=== PATIENT | male | born 1945 | race Caucasian/White ===

== ENCOUNTER 2016-12-10 15:09 | Emergency (ER) | payer OTHER ==
[~2016-12-10] VITALS: Ht 190.5 cm; Wt 100.0 kg
[~2016-12-10 15:09] MED LIST: ASPI325T PO; CALC1TAB12 PO; METO100T PO; PRAV40TA2 PO; PRIN10TA PO; THERTAB27 PO; THIA100T PO; TRAM50TA PO
[2016-12-10 15:12] VITALS: BP 133/97; PULSE 144; RESP 14; TEMP 98; O2SAT 98
--- NOTE | 2016-12-10 16:16 | PD ---
HPI Chief Complaint: GI Complaint Time Seen by Provider: 16:15 Travel History International Travel<30 days: No Contact w/Intl Traveler<30days: No Traveled to known affect area: No History of Present Illness HPI 71-year-old male with CAD, hypertension, A. fib, presents to the emergency department for evaluation of decreased appetite, weight loss, inability to sleep worsening over the last 6 weeks. Patient states he has been seen and evaluated by his primary care provider for this. He was prescribed medication to help him sleep and to help him to increase his appetite but these have not helped. He states his symptoms have only gotten worse. He has been referred to GI but cannot get into them until December 30 when he has appointment. Patient states that he has gotten to the point where he eats a slice of tomato at night and then he is dry heaving 4 hours later. He denies any significant pain. No chest tightness. No difficulty breathing. States that he has felt tired but attributes this to not sleeping. Denies any fever or chills. No other symptoms to report at this time. PFSH Past Medical History Atrial Fibrillation: Yes ([place] 08/02/14) Heart Rhythm Problems: Yes Cancer: No Cardiovascular Problems: Yes High Cholesterol: Yes Diabetes: No Diminished Hearing: No Endocrine: No Genitourinary: No Hepatitis: No Hiatal Hernia: No Immune Disorder: No Musculoskeletal: Yes (OSTEOPENIA ) Neurologic: No Psychiatric: No Reproductive: No Respiratory: No Thyroid Disease: No Past Surgical History Abdominal Surgery: No AICD: No Arteriovenous Shunt: No Body Medical Devices: NONE Cardiac Surgery: No Ear Surgery: No Endocrine Surgery: No Eye Surgery: No Genitourinary Surgery: No Gynecologic Surgery: No Insulin Pump: No Joint Replacement: No Oral Surgery: No Pacemaker: No Thoracic Surgery: No Social History Alcohol Use: Yes (10 BEERS/DAY) Tobacco Use: No Substance Use: No Allergies-Medications (Allergen,Severity, Reaction): Coded Allergies: No Known Allergies (Unverified , 09/26/16) Reported Meds & Prescriptions Reported Meds & Active Scripts Active Reported Lexapro (Escitalopram Oxalate) 5 Mg Tab 5 Mg PO DAILY Atorvastatin (Atorvastatin Calcium) 10 Mg Tab 10 Mg PO HS Thiamine (Thiamine HCl) 100 Mg Tab 100 Mg PO DAILY Theragran-M (Multiple Vitamins W/ Minerals) 1 Tab 1 Tab PO DAILY Prinivil (Lisinopril) 10 Mg Tab 10 Mg PO DAILY Metoprolol Tartrate 100 Mg Tab 100 Mg PO BID Calcium 500 +D (Calcium Carbonate-Cholecalciferol) 500-400 Mg-Unit Tab 1 Tab PO DAILY Aspirin 325 Mg Tab 325 Mg PO DAILY Review of Systems Except as stated in HPI: all other systems reviewed are Neg Physical Exam Narrative GENERAL: Well-nourished male patient, ambulatory and in no acute distress. SKIN: Warm and dry. Micropapular rash over the anterior trunk with excoriation. No vesicle or pustule formation. HEAD: Atraumatic. Normocephalic. EYES: Pupils equal and round. Mild scleral icterus. No injection or drainage. ENT: No nasal bleeding or discharge. Mucous membranes pink and moist. NECK: Trachea midline. No JVD. CARDIOVASCULAR: Tachycardic rate and irregular rhythm. No murmur appreciated. RESPIRATORY: No accessory muscle use. Clear to auscultation. Breath sounds equal bilaterally. GASTROINTESTINAL: Abdomen soft, non-tender, nondistended. Hepatic and splenic margins not palpable. MUSCULOSKELETAL: No obvious deformities. No clubbing. No cyanosis. No edema. NEUROLOGICAL: Awake and alert. No obvious cranial nerve deficits. Motor grossly within normal limits. Normal speech. PSYCHIATRIC: Appropriate mood and affect; insight and judgment normal. Data Data Last Documented VS Vital Signs Date Time Temp Pulse Resp B/P Pulse Ox O2 Delivery O2 Flow Rate FiO2 12/10/16 19:04 99 18 147/91 97 Room Air 12/10/16 15:12 98.0 Orders Complete Blood Count With Diff (12/10/16 16:14) Comprehensive Metabolic Panel (12/10/16 16:14) Lipase (12/10/16 16:14) Urinalysis - C+S If Indicated (12/10/16 16:14) Electrocardiogram (12/10/16 16:16) Ckmb (Isoenzyme) Profile (12/10/16 16:16) Magnesium (Mg) (12/10/16 16:16) Prothrombin Time / Inr (Pt) (12/10/16 16:16) Act Partial Throm Time (Ptt) (12/10/16 16:16) Troponin I (12/10/16 16:16) Chest, Single Ap (12/10/16 16:16) CKMB (12/10/16 16:41) CKMB% (12/10/16 16:41) Diltiazem Inj (Cardizem Inj) (12/10/16 17:57) Sodium Chlor 0.9% 1000 Ml Inj (Ns 1000 M (12/10/16 18:30) Sodium Chlor 0.9% 1000 Ml Inj (Ns 1000 M (12/10/16 18:30) Diltiazem Inj (Cardizem Inj) (12/10/16 18:30) Labs Laboratory Tests Test 12/10/16 16:41 White Blood Count 5.2 TH/MM3 Red Blood Count 5.03 MIL/MM3 Hemoglobin 16.2 GM/DL Hematocrit 49.8 % Mean Corpuscular Volume 99.0 FL Mean Corpuscular Hemoglobin 32.2 PG Mean Corpuscular Hemoglobin 32.6 % Concent Red Cell Distribution Width 16.0 % Platelet Count 93 TH/MM3 Mean Platelet Volume 11.3 FL Neutrophils (%) (Auto) 63.4 % Lymphocytes (%) (Auto) 25.2 % Monocytes (%) (Auto) 9.7 % Eosinophils (%) (Auto) 0.3 % Basophils (%) (Auto) 1.4 % Neutrophils # (Auto) 3.3 TH/MM3 Lymphocytes # (Auto) 1.3 TH/MM3 Monocytes # (Auto) 0.5 TH/MM3 Eosinophils # (Auto) 0.0 TH/MM3 Basophils # (Auto) 0.1 TH/MM3 CBC Comment AUTO DIFF Differential Comment AUTO DIFF CONFIRMED Platelet Estimate LOW Platelet Morphology Comment ENLARGED Ovalocytes 1+ Prothrombin Time 19.4 SEC Prothromb Time International 1.7 RATIO Ratio Activated Partial 28.5 SEC Thromboplast Time Magnesium Level 1.7 MG/DL Total Creatine Kinase 1596 U/L Creatine Kinase MB 27.3 NG/ML Creatine Kinase MB % 1.7 % Troponin I 0.09 NG/ML MDM Medical Decision Making Medical Screen Exam Complete: Yes Emergency Medical Condition: Yes Medical Record Reviewed: Yes Differential Diagnosis Dehydration versus blood slight abnormality versus gastroparesis versus neoplasm versus cholecystitis versus pancreatitis Narrative Course 71-year-old male presents to the emergency department for evaluation. Patient appears overall well and without distress. Abdominal exam is benign. He is in A. fib with RVR per the EKG with a rate 130s to 140s. Work up was initiated in triage. Patient will be transferred to a medical bed once one becomes available and care will be assumed by that provider. Condition: Stable Hollie Swanson Dec 10, 2016 16:15
--- NOTE | 2016-12-10 16:29 | RADRPT ---
EXAM DATE/TIME: 12/10/2016 16:13 [facility] COMPARISON: CHEST SINGLE AP, August 02, 2014, 7:54. INDICATIONS : Chest discomfort and short of breath. MEDICAL HISTORY : A-fib. SURGICAL HISTORY : None. ENCOUNTER: Initial ACUITY: 1 week PAIN SCORE: 1/10 LOCATION: Bilateral chest FINDINGS: There is compensated cardiomegaly with areas of persistent scarring in the left base laterally near t he costophrenic angle. CONCLUSION: Stable chest with compensated cardiomegaly and left basilar scarring Luis Larkin MD on December 10, 2016 at 16:27 Board Certified Radiologist. This report was verified electronically.
[2016-12-10 16:59] LABS: AUTOMATED NEUTROPHIL # 3.3 TH/MM3 (1.8-7.7); BASOPHIL # 0.1 TH/MM3 (0-0.2); BASOPHIL % 1.4 % (0.0-2.0); EOSINOPHIL % 0.3 % (0.0-4.0); HEMATOCRIT 49.8 % (39.0-51.0); LYMPH % 25.2 % (9.0-44.0); LYMPHOCYTE # 1.3 TH/MM3 (1.0-4.8); MEAN CORPUSCULAR HEMOGLOBIN 32.2 PG (27.0-34.0); MEAN CORPUSCULAR HGB CONC 32.6 % (32.0-36.0); MONO % 9.7 % (0.0-8.0); NEUT % 63.4 % (16.0-70.0); PLATELET COUNT 93 TH/MM3 (150-450); RED BLOOD COUNT 5.03 MIL/MM3 (4.50-5.90); WHITE BLOOD COUNT 5.2 TH/MM3 (4.0-11.0)
[2016-12-10 17:00] LABS: HEMO FLAGS AUTO DIFF
[2016-12-10 17:09] LABS: APTT (PATIENT) 28.5 SEC (24.3-30.1); INTERNATIONAL NORMALIZED RATIO 1.7 RATIO; PROTHROMBIN TIME - PATIENT 19.4 SEC (9.8-11.6)
[2016-12-10 17:22] LABS: MAGNESIUM 1.7 MG/DL (1.5-2.5)
[2016-12-10 17:34] LABS: OVALOCYTES 1+ (NORMAL); PLATELET ESTIMATE SMEAR LOW (NORMAL); PLATELET MORPHOLOGY ENLARGED (NORMAL); SCAN/DIFF AUTO DIFF CONFIRMED
[2016-12-10 17:48] VITALS: BP 129/103; PULSE 128; RESP 18; O2SAT 97
[2016-12-10 17:48] LABS: CKMB 27.3 NG/ML (0.5-3.6)
[2016-12-10] MEDS ORDERED: DILTIAZEM HCL 25 MG/5 ML VIAL ONE (17:57)
[2016-12-10] MEDS ORDERED: ATOR10TA15 PO (17:58)
[2016-12-10] MEDS ORDERED: LEXA5TAB PO (17:59)
[2016-12-10 18:22] VITALS: BP 125/86; PULSE 100; RESP 18; O2SAT 94
--- NOTE | 2016-12-10 18:27 | PD ---
Physical Exam Narrative I, Dr. Torres, have reviewed the advance practice practitioner's documentation and am in agreement, met with the patient face to face, made the diagnosis, and the medical decision making was done by me. *My assessment and Findings: Afib in RVR vs. dehydration vs. depression vs. malignancy 71yo M with PMH of afib on metoprolol only presents to the ED with c/o 6 weeks of decreased appetite and decreased sleep. States he is nauseous and dry heaves. Pt was initially seen in triage and was in afib RVR at 131bpm. When pt was transferred to medical bed, he was in afib 130s-140s. BP was 129/103 and pt given cardizem 25mg IV. Pt's heart rate decreased to 90s. Labs reviewed , no leukocytosis. CPK 1596. Pt has dark urine and has not been eating or drinking much. Pt given IVF NS for rhabdomyolysis. Troponin 0.09. Pt has no chest pain, likely secondary to afib RVR. Will trend cardiac enzyme. CMP still in process. PT elevated at 19.4. CXR showed stable chest with compensated cardiomegaly and left basilar scarring. States colonoscopy normal 5 -6 years ago. Denies any recent falls. Labs pending, sign out to next team to follow up BMP and admit. Data Data Last Documented VS Vital Signs Date Time Temp Pulse Resp B/P Pulse Ox O2 Delivery O2 Flow Rate FiO2 12/10/16 20:30 130 18 176/78 97 Room Air 12/10/16 15:12 98.0 Orders Complete Blood Count With Diff (12/10/16 16:14) Comprehensive Metabolic Panel (12/10/16 16:14) Lipase (12/10/16 16:14) Urinalysis - C+S If Indicated (12/10/16 16:14) Electrocardiogram (12/10/16 16:16) Ckmb (Isoenzyme) Profile (12/10/16 16:16) Magnesium (Mg) (12/10/16 16:16) Prothrombin Time / Inr (Pt) (12/10/16 16:16) Act Partial Throm Time (Ptt) (12/10/16 16:16) Troponin I (12/10/16 16:16) Chest, Single Ap (12/10/16 16:16) CKMB (12/10/16 16:41) CKMB% (12/10/16 16:41) Diltiazem Inj (Cardizem Inj) (12/10/16 17:57) Sodium Chlor 0.9% 1000 Ml Inj (Ns 1000 M (12/10/16 18:30) Sodium Chlor 0.9% 1000 Ml Inj (Ns 1000 M (12/10/16 18:30) Diltiazem Inj (Cardizem Inj) (12/10/16 18:30) Diltiazem Inj (Cardizem Inj) (12/10/16 21:00) Ct Abd/Pel W/O Iv Contrast (12/10/16 ) Admit Order (Ed Use Only) (12/10/16 20:57) Oral Contrast - Adult (12/10/16 20:59) Labs Laboratory Tests Test 12/10/16 16:41 White Blood Count 5.2 TH/MM3 Red Blood Count 5.03 MIL/MM3 Hemoglobin 16.2 GM/DL Hematocrit 49.8 % Mean Corpuscular Volume 99.0 FL Mean Corpuscular Hemoglobin 32.2 PG Mean Corpuscular Hemoglobin 32.6 % Concent Red Cell Distribution Width 16.0 % Platelet Count 93 TH/MM3 Mean Platelet Volume 11.3 FL Neutrophils (%) (Auto) 63.4 % Lymphocytes (%) (Auto) 25.2 % Monocytes (%) (Auto) 9.7 % Eosinophils (%) (Auto) 0.3 % Basophils (%) (Auto) 1.4 % Neutrophils # (Auto) 3.3 TH/MM3 Lymphocytes # (Auto) 1.3 TH/MM3 Monocytes # (Auto) 0.5 TH/MM3 Eosinophils # (Auto) 0.0 TH/MM3 Basophils # (Auto) 0.1 TH/MM3 CBC Comment AUTO DIFF Differential Comment AUTO DIFF CONFIRMED Platelet Estimate LOW Platelet Morphology Comment ENLARGED Ovalocytes 1+ Prothrombin Time 19.4 SEC Prothromb Time International 1.7 RATIO Ratio Activated Partial 28.5 SEC Thromboplast Time Sodium Level 139 MEQ/L Potassium Level 3.6 MEQ/L Chloride Level 94 MEQ/L Carbon Dioxide Level 31.2 MEQ/L Anion Gap 14 MEQ/L Blood Urea Nitrogen 22 MG/DL Creatinine 1.94 MG/DL Estimat Glomerular Filtration 34 ML/MIN Rate Random Glucose 109 MG/DL Calcium Level 9.3 MG/DL Magnesium Level 1.7 MG/DL Total Bilirubin 2.5 MG/DL Aspartate Amino Transf 207 U/L (AST/SGOT) Alanine Aminotransferase 177 U/L (ALT/SGPT) Alkaline Phosphatase 88 U/L Total Creatine Kinase 1596 U/L Creatine Kinase MB 27.3 NG/ML Creatine Kinase MB % 1.7 % Troponin I 0.09 NG/ML Total Protein 6.5 GM/DL Albumin 3.6 GM/DL Lipase 96 U/L MDM Supervised Visit with SOFYA: Yes Interpretation(s) EKG: Afib with RVR at 131bpm. LAD. +PVCs. Diagnosis Primary Impression: Atrial fibrillation with rapid ventricular response Admitting Information Admitting Physician Requests: Admit Condition: Stable Tammy Torres DO Dec 10, 2016 18:27
[2016-12-10] MEDS ORDERED: SODIUM CHLOR 0.9% 1000 ML INJ 1,000 ML IV ONE ×2 (18:30)
[2016-12-10] MEDS ORDERED: DILTIAZEM HCL 25 MG/5 ML VIAL IV ONE (18:30)
[2016-12-10 19:04] VITALS: BP 147/91; PULSE 99; RESP 18; O2SAT 97
--- NOTE | 2016-12-10 19:16 | EKG ---
Date Performed: 12/10/2016 Time Performed: 16:39:51 PTAGE: 71 years EKG: ATRIAL FIBRILLATION WITH RAPID VENTRICULAR RESPONSE WITH ABERRANT CONDUCTION OR VENTRICULAR PREMATURE COMPLEXES MARKED LEFT AXIS DEVIATION INCOMPLETE RIGHT BUNDLE BRANCH BLOCK NONSPECIFIC ST & T-WAVE ABNORMALITY ABNORMAL ECG COMPARED TO PRIOR ELECTROCARDIOGRAM, Rate has increased and ST-T wave segments are slightly more marked. PREVIOUS TRACING : 05/19/2015 08.22 DOCTOR: Maik Benitez Interpretating Date/Time 12/10/2016 19:15:19
[2016-12-10 19:57] LABS: ANION GAP 14 MEQ/L (5-15); AST (GOT) 207 U/L (15-37); BICARBONATE 31.2 MEQ/L (21.0-32.0); BLOOD UREA NITROGEN 22 MG/DL (7-18); CHLORIDE 94 MEQ/L (98-107); GLOMERULAR FILTRATION RATE 34 ML/MIN (>89); POTASSIUM 3.6 MEQ/L (3.5-5.1); SODIUM (NA) 139 MEQ/L (136-145)
[2016-12-10 20:09] LABS: ALKALINE PHOSPHATASE 88 U/L (45-117); ALT (GPT) 177 U/L (12-78); TOTAL BILIRUBIN ADULT 2.5 MG/DL (0.2-1.0)
[2016-12-10 20:30] VITALS: BP 176/78; PULSE 130; RESP 18; O2SAT 97
[2016-12-10] MEDS ORDERED: NALOXONE HCL 0.4 MG/ML AMP IV PRN (21:00)
[2016-12-10] MEDS ORDERED: SODIUM CHLORIDE 0.9% FLUSH 5 ML FLUSH FLUSH SCH (21:00)
[2016-12-10] MEDS ORDERED: SODIUM CHLORIDE 0.9% FLUSH 5 ML FLUSH FLUSH PRN (21:00)
[2016-12-10] MEDS ORDERED: ONDANSETRON HCL 4 MG/2 ML VIAL IVP PRN (21:00)
[2016-12-10] MEDS ORDERED: DILTIAZEM INJ 125 MG in SODIUM CHLORIDE 0.9% INJ 100 ML IV SCH (21:00)
--- NOTE | 2016-12-10 21:30 | HHI.HP ---
[facility] Service [facility] Primary Care Physician Hillary Muniz MD Admission Diagnosis AFib RVR; Hyperbilirubinemia; Anorexia; N/V; Rhabdo; PONCE Diagnoses: Travel History International Travel<30 Days: No Contact w/Intl Traveler <30 Da: No Traveled to Known Affected Are: No Past Family Social History Allergies: Coded Allergies: No Known Allergies (Unverified , 09/26/16) Physical Exam Vital Signs Vital Signs Date Time Temp Pulse Resp B/P Pulse Ox O2 Delivery O2 Flow Rate FiO2 12/10/16 20:30 130 18 176/78 97 Room Air 12/10/16 19:04 99 18 147/91 97 Room Air 12/10/16 18:22 100 18 125/86 94 12/10/16 17:48 128 18 129/103 97 Room Air 12/10/16 15:12 98.0 144 14 133/97 98 Room Air Physical Exam GENERAL: This is a well-nourished, well-developed patient, in no apparent distress. SKIN: No rashes, ecchymoses or lesions. Cool and dry. HEAD: Atraumatic. Normocephalic. No temporal or scalp tenderness. EYES: Pupils equal round and reactive. Extraocular motions intact. No scleral icterus. No injection or drainage. ENT: Nose without bleeding, purulent drainage or septal hematoma. Throat without erythema, tonsillar hypertrophy or exudate. Uvula midline. Airway patent. NECK: Trachea midline. No JVD or lymphadenopathy. Supple, nontender, no meningeal signs. CARDIOVASCULAR: Regular rate and rhythm without murmurs, gallops, or rubs. RESPIRATORY: Clear to auscultation. Breath sounds equal bilaterally. No wheezes , rales, or rhonchi. GASTROINTESTINAL: Abdomen soft, non-tender, nondistended. No hepato-splenomegaly , or palpable masses. No guarding. MUSCULOSKELETAL: Extremities without clubbing, cyanosis, or edema. No joint tenderness, effusion, or edema noted. No calf tenderness. Negative Homans sign bilaterally. NEUROLOGICAL: Awake and alert. Cranial nerves II through XII intact. Motor and sensory grossly within normal limits. Five out of 5 muscle strength in all muscle groups. Normal speech. Laboratory Laboratory Tests Test 12/10/16 16:41 White Blood Count 5.2 Red Blood Count 5.03 Hemoglobin 16.2 Hematocrit 49.8 Mean Corpuscular Volume 99.0 Mean Corpuscular Hemoglobin 32.2 Mean Corpuscular Hemoglobin 32.6 Concent Red Cell Distribution Width 16.0 Platelet Count 93 Mean Platelet Volume 11.3 Neutrophils (%) (Auto) 63.4 Lymphocytes (%) (Auto) 25.2 Monocytes (%) (Auto) 9.7 Eosinophils (%) (Auto) 0.3 Basophils (%) (Auto) 1.4 Neutrophils # (Auto) 3.3 Lymphocytes # (Auto) 1.3 Monocytes # (Auto) 0.5 Eosinophils # (Auto) 0.0 Basophils # (Auto) 0.1 CBC Comment AUTO DIFF Differential Comment AUTO DIFF CONFIRMED Platelet Estimate LOW Platelet Morphology Comment ENLARGED Ovalocytes 1+ Prothrombin Time 19.4 Prothromb Time International 1.7 Ratio Activated Partial 28.5 Thromboplast Time Sodium Level 139 Potassium Level 3.6 Chloride Level 94 Carbon Dioxide Level 31.2 Anion Gap 14 Blood Urea Nitrogen 22 Creatinine 1.94 Estimat Glomerular Filtration 34 Rate Random Glucose 109 Calcium Level 9.3 Magnesium Level 1.7 Total Bilirubin 2.5 Aspartate Amino Transf 207 (AST/SGOT) Alanine Aminotransferase 177 (ALT/SGPT) Alkaline Phosphatase 88 Total Creatine Kinase 1596 Creatine Kinase MB 27.3 Creatine Kinase MB % 1.7 Troponin I 0.09 Total Protein 6.5 Albumin 3.6 Lipase 96 Result Diagram: 12/10/16 1641 12/10/16 1641 Physician Certification Order for Inpatient Services The services are ordered in accordance with Medicare regulations or non- Medicare payer requirements, as applicable. In the case of services not specified as inpatient-only, they are appropriately provided as inpatient services in accordance with the 2-midnight benchmark. days is the estimated time the patient will need to remain in the hospital, assuming treatment plan goals are met and no additional complications. Doris Mckeon MD Dec 10, 2016 21:29
[2016-12-10 21:36] LABS: BLOOD, URINE MOD (NEG); COMMENT (UR) CULTURE INDICATED; CULTURE IF INDICATED CULTURE INDICATED; GLUCOSE,URINE NEG (NEG); HYALINE CAST, URINE 53 /lpf (RARE); KETONE, URINE TRACE mg/dL (NEG); MUCUS URINE FEW /lpf (OCC); NITRITE,URINE NEG (NEG); URINE COLOR DARK-YELLOW (YELLW/STRAW)
[2016-12-10] MEDS ORDERED: DIATRIZOATE MEGLUM/DIATRIZOATE SOD 9 ML CUP ONE (21:46)
[2016-12-10 21:48] VITALS: BP 121/96; PULSE 124; RESP 18; O2SAT 97
--- NOTE | 2016-12-10 22:55 | HHI.PR ---
Addendum to Inpatient Note Addendum Reason: Additional Documentation Additional Information Please note that this is an addendum. Patient is not admitted as an inpatient. Patient actually signed out AMA and refused hospital admission. I was called by ER physician for an admission on this patient. Came to see patient at the bedside. Patient immediately told me that he has been tolerating other providers that he wanted to leave the hospital because he does not feel that he would get a bad tonight. He feels that he is dehydrated and he just wanted IV fluids before leaving. I have talked to patient in detail about his medical situation. He told me that he has been having these bloating sensation since about Christmastime or even longer. However he started having dry heaving with significant discomfort starting around 10 days ago or so. About 10 days ago, he stated he had outpatient CT abdomen with oral contrast done at [facility]. He states he also has a GI appointment. He states initially his PCP was treating him with omeprazole. He states since this was not improving and he was having constant nausea and dry heaving, he had called PCPs office today who told him to come to emergency room instead. Patient denies any fever. Denies vomiting. Denies any diarrhea or constipation. Denies any black color stool or red color stool. Patient notes that he did receive oral contrast but he does not think that he got IV contrast 10 days ago. Patient is not aware of any history of congestive heart failure or renal failure. He states that his hand box coverer at [facility] never mentioned him about congestive heart failure. He does not have an AICD. Patient is explained that he is currently in acute renal failure based on his labs compared to his prior labs from 2013. He is also explained that echocardiogram done in July 2014 here did show that his EF was 30-35%. He is explained that for this reason, he will be hydrated with caution. He already received 2 L of normal saline bolus in emergency room. He also reports of history of A. fib. He was noted to be in A. fib with a RVR in emergency room. He was given Cardizem IV at that time and was started on Cardizem IV drip. Patient is explained that his A. fib could be exacerbated because of several reasons. Dehydration, any GI bleed, any fever, any cardiac event such as ACS, could all lead to A. fib with RVR. Therefore he is explained that we need to treat the underlying cause of his A. fib with RVR bombarding him with high dose of Cardizem drip. We will be cautious with the drip. The patient is explained in detail that at present, we do not know the exact etiology of his symptoms. He is noted to have rhabdomyolysis with CPK in the Thousands with mild elevation of troponin. I do believe that this is from rhabdo. However I cannot rule out ACS. Similarly, he is also noted to have abnormal UA. Although he does not have any urinary symptoms, this could also be a UTI. Given above all this, patient is explained that if he does not want to stay in the hospital because of the bed situation, he is to leave AGAINST MEDICAL ADVICE. Patient still wants to leave AGAINST MEDICAL ADVICE and he will follow up with his PCP in the morning for further care. He is also advised to have one of his friends stay with him overnight in case he needs any help. He is also told to have his cell phone nearby in case he needs to call 911. Patient is awake, alert, oriented. He is of all the risks against leaving medical advice including . Admitting office, and community relations director informed to remove admission to the hospital since patient was not admitted and does not want him to be charged financially for this. Doris Mckeon MD Dec 10, 2016 22:55
[2016-12-11] MEDS ORDERED: METOPROLOL TARTRATE 100 MG TAB PO SCH (09:00)
[2016-12-12] MEDS ORDERED: TEMA15CA PO (15:43)
[2016-12-12] MEDS ORDERED: OMEP20TA PO (15:43)
[2016-12-12] MEDS ORDERED: VITAMIN B1 (15:43)
== END 2016-12-11 07:39 | disposition left against medical advice (07) ==
LOC: NEPC 15:09 → UNDOADMIN 20:59 → NEDA 20:59 → NEPC 12-11 07:39
DX: I48.91 Unspecified atrial fibrillation (principal); R82.90 Unspecified abnormal findings in urine; R94.31 Abnormal electrocardiogram [ECG] [EKG]; E78.00 Pure hypercholesterolemia, unspecified; N17.9 Acute kidney failure, unspecified
CPT/HCPCS: 71010; 80053; 81001; 82550; 82552; 83690; 83735; 84484; 85025; 85610; 85730; 87086; 93005; 96361; 96374; 96375; 99285; J7030; Q9963

== ENCOUNTER 2016-12-12 15:14 | Inpatient (IN) | payer OTHER, MEDICARE ==
[~2016-12-12] VITALS: Ht 190.5 cm; Wt 111.0 kg
[2016-12-12] VITALS (9 sets, daily range): BP systolic 104–130; BP diastolic 67–99; PULSE 110–148; RESP 16–20; TEMP 97.4–97.5; O2SAT 94–98
[~2016-12-12 15:14] MED LIST changes: +ATOR10TA15 PO; +LEXA5TAB PO; -PRAV40TA2 PO; -TRAM50TA PO
[2016-12-12] MEDS ORDERED: TEMA15CA PO (15:43)
[2016-12-12] MEDS ORDERED: OMEP20TA PO (15:43)
[2016-12-12] MEDS ORDERED: VITAMIN B1 (15:43)
[2016-12-12] MEDS ORDERED: METOPROLOL SUCCINATE 50 MG EXTENDED RELEASE TAB PO ONE (16:00)
--- NOTE | 2016-12-12 16:05 | PD ---
HPI Chief Complaint: Cardiac Complaint Time Seen by Provider: 15:31 Travel History International Travel<30 days: No Contact w/Intl Traveler<30days: No Traveled to known affect area: No History of Present Illness HPI This 71-year-old male is complaining of nausea and poor appetite. He says his stomach feels bloated. He's been feeling lightheaded at times. He has dry heaves at times. His been up drinker in the past 6-7 beers a day. He stopped about a month ago when he started not feeling well. He has also not been sleeping well he has tried Restoril but did not help him. He has been on omeprazole without any response. He has a history of atrial fibrillation. He has been on diltiazem and metoprolol in the past. 5 months ago he was taken off the diltiazem and his chest and metoprolol. He actually says however that he has not taken his metoprolol today. He has been a little bit short of breath. He went to [facility] a few days ago for these complaints and was evaluated for admission. He was found to be in rapid atrial fibrillation. At that time his bilirubin was 2.5 PFSH Past Medical History Atrial Fibrillation: Yes (NEW [place] 08/02/14) Heart Rhythm Problems: Yes Cancer: No Cardiovascular Problems: Yes High Cholesterol: Yes Diabetes: No Diminished Hearing: No Endocrine: No Gastrointestinal Disorders: No Genitourinary: No Hepatitis: No Hiatal Hernia: No Hypertension: Yes Immune Disorder: No Implanted Vascular Access Dvce: No Medical other: No Musculoskeletal: Yes (OSTEOPENIA ) Neurologic: No Psychiatric: No Reproductive: No Respiratory: No Thyroid Disease: No Tetanus Vaccination: Unknown Past Surgical History Abdominal Surgery: Yes (double inguinal hernia 2014) AICD: No Arteriovenous Shunt: No Body Medical Devices: NONE Cardiac Surgery: No Ear Surgery: No Endocrine Surgery: No Eye Surgery: No Genitourinary Surgery: No Gynecologic Surgery: No Insulin Pump: No Joint Replacement: No Neurologic Surgery: No Oral Surgery: No Pacemaker: No Thoracic Surgery: No Social History Alcohol Use: No (last drank before 2015) Tobacco Use: No Substance Use: No Allergies-Medications (Allergen,Severity, Reaction): Coded Allergies: No Known Allergies (Unverified , 12/12/16) Reported Meds & Prescriptions Reported Meds & Active Scripts Active Reported Temazepam 15 Mg Cap 15 Mg PO HS PRN Omeprazole 20 Mg Tab 20 Mg PO DAILY [Vitamin B1] Lexapro (Escitalopram Oxalate) 5 Mg Tab 5 Mg PO DAILY Atorvastatin (Atorvastatin Calcium) 10 Mg Tab 10 Mg PO HS Theragran-M (Multiple Vitamins W/ Minerals) 1 Tab 1 Tab PO DAILY Prinivil (Lisinopril) 10 Mg Tab 10 Mg PO DAILY Metoprolol Tartrate 100 Mg Tab 100 Mg PO BID Calcium 500 +D (Calcium Carbonate-Cholecalciferol) 500-400 Mg-Unit Tab 1 Tab PO DAILY Aspirin 325 Mg Tab 325 Mg PO DAILY Review of Systems General / Constitutional: No: Fever, Chills Eyes: No: Diploplia HENT: No: Headaches Cardiovascular: Positive: Palpitations, Tachycardia Respiratory: Positive: Shortness of Breath Gastrointestinal: Positive: Nausea, Vomiting, No: Hematemesis Genitourinary: No: Urgency, Frequency Musculoskeletal: No: Myalgias Skin: No Rash Physical Exam Narrative GENERAL: Well-developed male SKIN: Warm and dry. HEAD: Atraumatic. Normocephalic. EYES: Pupils equal and round. scleral icterus. No injection or drainage. ENT: No nasal bleeding or discharge. Mucous membranes pink and moist. NECK: Trachea midline. No JVD. CARDIOVASCULAR: Rapid irregular rate and rhythm. No murmur appreciated. RESPIRATORY: No accessory muscle use. Clear to auscultation. Breath sounds equal bilaterally. GASTROINTESTINAL: Abdomen soft, non-tender, nondistended. Hepatic and splenic margins not palpable. MUSCULOSKELETAL: No obvious deformities. No clubbing. No cyanosis. No edema. NEUROLOGICAL: Awake and alert. No obvious cranial nerve deficits. Motor grossly within normal limits. Normal speech. PSYCHIATRIC: Appropriate mood and affect; insight and judgment normal. Data Data Last Documented VS Vital Signs Date Time Temp Pulse Resp B/P Pulse Ox O2 Delivery O2 Flow Rate FiO2 12/12/16 15:38 92 Nasal Cannula 2 12/12/16 15:26 18 12/12/16 15:17 97.5 130 130/96 Orders Electrocardiogram (12/12/16 15:48) Complete Blood Count With Diff (12/12/16 15:48) Comprehensive Metabolic Panel (12/12/16 15:48) Troponin I (12/12/16 15:48) B-Type Natriuretic Peptide (12/12/16 15:48) Lipase (12/12/16 15:48) Urinalysis - C+S If Indicated (12/12/16 15:48) Chest, Single Ap (12/12/16 15:48) Ct Abd/Pel W Iv Contrast(Rout) (12/12/16 15:48) Metoprolol Succinate Er (Toprol Xl) (12/12/16 16:00) MDM Medical Decision Making Medical Screen Exam Complete: Yes Emergency Medical Condition: Yes Medical Record Reviewed: Yes Differential Diagnosis Differential includes rapid atrial fibrillation, hepatitis, liver disease Narrative Course Patient is in rapid atrial fibrillation now and is supposed to be on metoprolol 100 twice a day but has not taken them. Rule out initiate some by mouth metoprolol. I have also ordered repeat lab work and a CT scan of the abdomen and pelvis to assess for the cause of his hyperbilirubinemia. He has been a drinker in the past Devaughn Carrillo MD Dec 12, 2016 16:05
[2016-12-12 16:15] LABS: CHLORIDE 95 MEQ/L (98-107); POTASSIUM 3.3 MEQ/L (3.5-5.1); SODIUM (NA) 140 MEQ/L (136-145)
[2016-12-12 16:19] LABS: ANION GAP 13 MEQ/L (5-15); BICARBONATE 32.2 MEQ/L (21.0-32.0); BLOOD UREA NITROGEN 28 MG/DL (7-18)
[2016-12-12 16:22] LABS: ALT (GPT) 426 U/L (12-78); AST (GOT) 559 U/L (15-37); GLOMERULAR FILTRATION RATE 33 ML/MIN (>89)
[2016-12-12 16:25] LABS: ALKALINE PHOSPHATASE 84 U/L (45-117)
[2016-12-12 16:28] LABS: AUTOMATED NEUTROPHIL # 4.3 TH/MM3 (1.8-7.7); BASOPHIL % 0.6 % (0.0-2.0); EOSINOPHIL % 0.3 % (0.0-4.0); HEMATOCRIT 49.9 % (39.0-51.0); LYMPH % 20.1 % (9.0-44.0); LYMPHOCYTE # 1.3 TH/MM3 (1.0-4.8); MEAN CELL VOLUME 98.1 FL (80.0-100.0); MEAN CORPUSCULAR HEMOGLOBIN 31.2 PG (27.0-34.0); MEAN CORPUSCULAR HGB CONC 31.8 % (32.0-36.0); MONO % 8.9 % (0.0-8.0); NEUT % 70.1 % (16.0-70.0); PLATELET COUNT 76 TH/MM3 (150-450); RED BLOOD COUNT 5.09 MIL/MM3 (4.50-5.90); WHITE BLOOD COUNT 6.2 TH/MM3 (4.0-11.0)
[2016-12-12] MEDS ORDERED: DILTIAZEM HCL 25 MG/5 ML VIAL IV ONE (16:30)
[2016-12-12] MEDS ORDERED: SODIUM CHLORID 0.9% 500 ML INJ 500 ML IV ONE (16:30)
[2016-12-12] MEDS ORDERED: POTASSIUM CHLORIDE 20 MEQ CONTROLLED RELEASE TAB PO ONE (16:30)
[2016-12-12 16:31] LABS: HEMO FLAGS AUTO DIFF
--- NOTE | 2016-12-12 16:34 | PD ---
Physical Exam Narrative Received sign out from previous team to follow up labs, CTa/p This is a 71yo M with PMH of former alcohol abuse, afib noncompliant with metoprolol 100mg PO BID here with generalized weakness and abdominal bloating. Pt was seen at [facility] on 12/10/16 and found to be in rapid afib, rhabdomyolysis and PONCE and signed out AMA. Pt states that he feels the same so he came back. Pt is again is rapid afib in the 130s-140s. Pt given metoprolol 50mg PO by previous team. Pt did not respond to the medication so cardizem 25mg IV given. Labs reviewed, no leukocytosis. K: 3.3, replaced orally with 40mEq KCl. Creatinine is again elevated at 2.0. Bilirubin and liver enzymes are more elevated than 12/10/16. CTa/p ordered for elevated liver enzymes but pt has no abdominal pain. CT showed cardiomegaly and small pleural effusions. Ascites in abdomen. No acute focal findings. Troponin is elevated at 0.15. BNP is 1643. CPK is increased to 3209 now. Discussed with cardiology Manjula and she recommended to stay with metoprolol since pt has low EF. States can also give low dose of lasix such as lasix 40mg IV. Pt given lopressor 2.5mg IV and heart rate did decreased to 90s but fluctuates. Discussed with electrical integrator Dr. Ly and recommend transfer to [facility] ICU. Data Data Last Documented VS Vital Signs Date Time Temp Pulse Resp B/P Pulse Ox O2 Delivery O2 Flow Rate FiO2 12/12/16 17:44 132 18 117/99 94 Room Air 12/12/16 16:26 2 12/12/16 15:17 97.5 Orders Electrocardiogram (12/12/16 15:48) Complete Blood Count With Diff (12/12/16 15:48) Comprehensive Metabolic Panel (12/12/16 15:48) Troponin I (12/12/16 15:48) B-Type Natriuretic Peptide (12/12/16 15:48) Lipase (12/12/16 15:48) Urinalysis - C+S If Indicated (12/12/16 15:48) Chest, Single Ap (12/12/16 15:48) Metoprolol Succinate Er (Toprol Xl) (12/12/16 16:00) Diltiazem Inj (Cardizem Inj) (12/12/16 16:30) Creatine Kinase (Cpk) (12/12/16 16:30) Sodium Chlorid 0.9% 500 Ml Inj (Ns 500 M (12/12/16 16:30) Potassium Chloride (Kcl) (12/12/16 16:30) Furosemide Inj (Lasix Inj) (12/12/16 17:00) Consult Cardiology (12/12/16 ) (Hub Use Only)Inp Phy Cons/Ref (12/12/16 ) CKMB (12/12/16 16:00) CKMB% (12/12/16 16:00) Metoprolol Tartrate Inj (Lopressor Inj) (12/12/16 17:44) Ct Abd/Pel W/O Iv Contrast (12/12/16 ) Admit Order (Ed Use Only) (12/12/16 18:04) Magnesium (Mg) (12/12/16 16:00) Labs Laboratory Tests Test 12/12/16 12/12/16 16:00 17:40 White Blood Count 6.2 TH/MM3 Red Blood Count 5.09 MIL/MM3 Hemoglobin 15.9 GM/DL Hematocrit 49.9 % Mean Corpuscular Volume 98.1 FL Mean Corpuscular Hemoglobin 31.2 PG Mean Corpuscular Hemoglobin 31.8 % Concent Red Cell Distribution Width 16.0 % Platelet Count 76 TH/MM3 Mean Platelet Volume 11.1 FL Neutrophils (%) (Auto) 70.1 % Lymphocytes (%) (Auto) 20.1 % Monocytes (%) (Auto) 8.9 % Eosinophils (%) (Auto) 0.3 % Basophils (%) (Auto) 0.6 % Neutrophils # (Auto) 4.3 TH/MM3 Lymphocytes # (Auto) 1.3 TH/MM3 Monocytes # (Auto) 0.6 TH/MM3 Eosinophils # (Auto) 0.0 TH/MM3 Basophils # (Auto) 0.0 TH/MM3 CBC Comment AUTO DIFF Differential Comment AUTO DIFF CONFIRMED Platelet Estimate LOW Platelet Morphology Comment ENLARGED Red Cell Morphology Comment NORMAL Sodium Level 140 MEQ/L Potassium Level 3.3 MEQ/L Chloride Level 95 MEQ/L Carbon Dioxide Level 32.2 MEQ/L Anion Gap 13 MEQ/L Blood Urea Nitrogen 28 MG/DL Creatinine 2.00 MG/DL Estimat Glomerular Filtration 33 ML/MIN Rate Random Glucose 105 MG/DL Calcium Level 8.9 MG/DL Magnesium Level 1.9 MG/DL Total Bilirubin 3.0 MG/DL Aspartate Amino Transf 559 U/L (AST/SGOT) Alanine Aminotransferase 426 U/L (ALT/SGPT) Alkaline Phosphatase 84 U/L Total Creatine Kinase 3209 U/L Creatine Kinase MB 43.8 NG/ML Creatine Kinase MB % 1.4 % Troponin I 0.15 NG/ML B-Type Natriuretic Peptide 1643 PG/ML Total Protein 6.4 GM/DL Albumin 3.3 GM/DL Lipase 127 U/L Urine Collection Type VOIDED Urine Color YELLOW Urine Turbidity CLEAR Urine pH 5.5 Urine Specific [place] 1.015 Urine Protein 100 mg/dL Urine Glucose (UA) NEG mg/dL Urine Ketones TRACE mg/dL Urine Occult Blood MOD Urine Nitrite NEG Urine Bilirubin MOD Urine Leukocyte Esterase NEG Urine WBC 0-2 /hpf Microscopic Urinalysis Comment CULT NOT INDICATED Urine Eosinophils NONE SEEN /HPF Urine Random Creatinine 135.7 MG/DL Urine Random Sodium 73 MEQ/L Urine Collection Time 1740 MDM Supervised Visit with SOFYA: No Critical Care Narrative Aggregate critical care time was 50 minutes. Time to perform other separately billable procedures was not included in the critical care time. My time did not include minutes spent treating any other patients simultaneously or on activities that did not directly contribute to the patient's treatment. The services I provided to this patient were to treat and/or prevent clinically significant deterioration that could result in: cardiovascular collapse or . I provided critical care services requiring my management, as noted below: Chart data review, documentation time, medication orders and management, vital sign assessments/reviewing monitor data, ordering and reviewing lab tests, ordering and interpreting/reviewing x-rays and diagnostic studies, care of the patient and discussion of the patient with the admitting physicians. Diagnosis Primary Impression: CHF exacerbation Qualified Code: I50.23 - Acute on chronic systolic congestive heart failure Additional Impression: PONCE (acute kidney injury) Admitting Information Admitting Physician Requests: Admit Tammy Torres DO Dec 12, 2016 16:34
--- NOTE | 2016-12-12 16:59 | RADHPO ---
EXAM DATE/TIME: 12/12/2016 16:28 [facility] COMPARISON: CHEST SINGLE AP, December 10, 2016, 16:13. INDICATIONS : Patient states shortness of breath. MEDICAL HISTORY : A-Fib SURGICAL HISTORY : None. ENCOUNTER: Initial ACUITY: 1 day PAIN SCORE: 0/10 LOCATION: Bilateral chest FINDINGS: AP upright view of the chest again demonstrates left basilar airspace consolidation. There is minimal right basilar consolidation. The remainder of the lungs are clear. Heart size appears moderately enl arged. Pulmonary vasculature is normal in caliber. CONCLUSION: Stable exam. Emy Franklin MD on December 12, 2016 at 16:56 Board Certified Radiologist. This report was verified electronically.
[2016-12-12] MEDS ORDERED: FUROSEMIDE 40 MG/4 ML VIAL IV PUSH ONE (17:00)
[2016-12-12 17:41] LABS: PLATELET ESTIMATE SMEAR LOW (NORMAL); PLATELET MORPHOLOGY ENLARGED (NORMAL); SCAN/DIFF AUTO DIFF CONFIRMED
[2016-12-12] MEDS ORDERED: METOPROLOL TARTRATE 5 MG/5 ML VIAL IV PUSH STA (17:44)
[2016-12-12 17:48] LABS: GLUCOSE,URINE NEG (NEG); KETONE, URINE TRACE mg/dL (NEG); NITRITE,URINE NEG (NEG); PH, URINE 5.5 (5.0-8.5)
[2016-12-12 17:59] LABS: BLOOD, URINE MOD (NEG)
[2016-12-12 18:01] LABS: CKMB 43.8 NG/ML (0.5-3.6)
[2016-12-12 18:14] LABS: COMMENT (UR) CULT NOT INDICATED; CULTURE IF INDICATED CULT NOT INDICATED; METHOD OF COLLECTION VOIDED; URINE COLOR YELLOW (YELLW/STRAW); WBC, URINE 0-2 /hpf (0-5)
[2016-12-12] MEDS ORDERED: RESP: ALBUTEROL 2.5 MG/IPRATROPIUM 0.5 MG NEB (PRN) INH (18:15)
[2016-12-12] MEDS ORDERED: CHLORHEXIDINE GLUCONATE 2 % 1 PACK (2 CLOTHS) TOP PRN (18:15)
[2016-12-12] MEDS ORDERED: MORPHINE SULFATE 4 MG/ML INJ IV PRN (18:15)
[2016-12-12] MEDS ORDERED: SODIUM CHLORIDE 0.9% FLUSH 5 ML FLUSH IV FLUSH PRN (18:15)
[2016-12-12] MEDS ORDERED: ACETAMINOPHEN 325 MG TAB PO PRN (18:15)
[2016-12-12] MEDS ORDERED: MISCELLANEOUS NURSING INFORMATION XX SCH (18:15)
[2016-12-12] MEDS ORDERED: SENNOSIDES 8.6 MG TAB PO PRN (18:15)
[2016-12-12 18:59] LABS: MAGNESIUM 1.9 MG/DL (1.5-2.5)
--- NOTE | 2016-12-12 19:02 | RADHPO ---
EXAM DATE/TIME: 12/12/2016 18:22 [facility] COMPARISON: No previous studies available for comparison. INDICATIONS : Elevated liver enzymes. Jaundice. ORAL CONTRAST: No oral contrast ingested. RADIATION DOSE: 19.36 CTDIvol (mGy) MEDICAL HISTORY : Hernia, inguinal. Hypertension. SURGICAL HISTORY : None. ENCOUNTER: Initial ACUITY: 2 months PAIN SCALE: 5/10 LOCATION: Bilateral abdomen and pelvis. TECHNIQUE: Volumetric scanning of the abdomen and pelvis was performed. Using automated exposure control and ad justment of the mA and/or kV according to patient size, radiation dose was kept as low as reasonably achievable to obtain optimal diagnostic quality images. FINDINGS: LOWER LUNGS: There are bilateral pleural effusions, larger on the left than the right. Mild cardiomegaly. LIVER: No focal mass or biliary ductal dilatation. SPLEEN: Normal size without lesion. PANCREAS: Within normal limits. KIDNEYS: Nonspecific perinephric edema and fluid. No evidence of hydronephrosis mass or stone. ADRENAL GLANDS: Within normal limits. VASCULAR: There is no aortic aneurysm. BOWEL/MESENTERY: Bowel structures are normal in caliber throughout. No definite wall thickening. Small volume ascites in 4 quadrants. ABDOMINAL WALL: Within normal limits. RETROPERITONEUM: There is no lymphadenopathy. BLADDER: No wall thickening or mass. REPRODUCTIVE: Within normal limits. INGUINAL: There is no lymphadenopathy or hernia. MUSCULOSKELETAL: Within normal limits for patient age. CONCLUSION: Cardiomegaly and small pleural effusions. Ascites in the abdomen. No acute focal findings. Keven Hamilton MD on December 12, 2016 at 18:56 Board Certified Radiologist. This report was verified electronically.
--- NOTE | 2016-12-12 21:08 | RADHPO ---
EXAM DATE/TIME: 12/12/2016 20:18 [facility] COMPARISON: CT ABDOMEN & PELVIS W/O CONTRAST, December 12, 2016, 18:22. EXTERNAL COMPARISON : [facility], CT ABDOMEN & PELVIS W/O CONTRAST, November 29, 2016 INDICATIONS : Increased lab values. MEDICAL HISTORY : Hypercholesterolemia. Hypertension. Afib. Osteopenia. SURGICAL HISTORY : Inguinal hernia repair. Right hand tendon repair. ENCOUNTER: Initial ACUITY: 2 months PAIN SCORE: 0/10 LOCATION: Bilateral upper quadrant MEASUREMENTS: LIVER: 16.6 cm length COMMON DUCT: 5 mm RIGHT KIDNEY: 10.3 x 4.7 x 5.2 cm SPLEEN: 8.1 cm length FINDINGS: Multi-region ascites LIVER: Hepatic veins are dilated. No focal liver mass or biliary ductal dilatation. COMMON DUCT: No intraluminal mass or stone visualized. GALLBLADDER: Nonspecific mild wall thickening. PANCREAS: The visualized portions are within normal limits. RIGHT KIDNEY: Small exophytic cyst laterally measuring about 2 cm. No hydronephrosis or stone SPLEEN: No focal lesion. CONCLUSION: Ascites. Hepatic venocongestion. Keven Hamilton MD on December 12, 2016 at 21:04 Board Certified Radiologist. This report was verified electronically.
[2016-12-12] MEDS: DOCUSATE SODIUM 100 MG CAP PO SCH (22:13)
[2016-12-12] MEDS: METOPROLOL TARTRATE 5 MG/5 ML VIAL IV PUSH SCH ×4 (22:13→23:25)
[2016-12-12] MEDS: SODIUM CHLORIDE 0.9% FLUSH 5 ML FLUSH IV FLUSH SCH (22:13)
[2016-12-12] MEDS: CHLORHEXIDINE GLUCONATE 2 % 1 PACK (2 CLOTHS) TOP SCH (22:13)
--- NOTE | 2016-12-12 22:43 | HHI.HP ---
HPI Service Critical Care Medicine Primary Care Physician Hillary Muniz MD Admission Diagnosis cardiorenal failure Diagnosis: Travel History International Travel<30 Days: No Contact w/Intl Traveler <30 Da: No Traveled to Known Affected Are: No History of Present Illness 71 year old male with former alcohol abuse, a. fib noncompliant with metoprolol 100mg PO BID presents with generalized weakness and abdominal bloating. He was seen here 12/10/16 and found to be in rapid afib, rhabdomyolysis and PONCE and left AMA. Pt states that he feels the same so he came back. Review of Systems Constitutional: DENIES: Diaphoretic episodes, Fatigue, Fever, Weight gain, Weight loss, Chills, Dizziness, Change in appetite, Night Sweats Endocrine: DENIES: Heat/cold intolerance, Polydipsia, Polyuria, Polyphagia Eyes: DENIES: Blurred vision, Diplopia, Eye inflammation, Eye pain, Vision loss , Photosensitivity, Double Vision Ears, nose, mouth, throat: DENIES: Tinnitus, Hearing loss, Vertigo, Nasal discharge, Oral lesions, Throat pain, Hoarseness, Ear Pain, Running Nose, Epistaxis, Sinus Pain, Toothache, Odynophagia Respiratory: DENIES: Apneas, Cough, Snoring, Wheezing, Hemoptysis, Sputum production, Shortness of breath Cardiovascular: COMPLAINS OF: Palpitations, PND, DENIES: Chest pain, Syncope, Dyspnea on Exertion, Lower Extremity Edema, Orthopnea, Claudication Gastrointestinal: DENIES: Abdominal pain, Black stools, Bloody stools, Constipation, Diarrhea, Nausea, Vomiting, Difficulty Swallowing, Anorexia Genitourinary: DENIES: Sexual dysfunction, Urinary frequency, Urinary incontinence, Urgency, Hematuria, Dysuria, Nocturia, Penile Discharge, Testicular Pain, Testicular Swelling Musculoskeletal: DENIES: Joint pain, Muscle aches, Stiffness, Joint Swelling, Back pain, Neck pain Integumentary: DENIES: Abnormal pigmentation, Nail changes, Pruritus, Rash Hematologic/lymphatic: DENIES: Bruising, Lymphadenopathy Immunologic/allergic: DENIES: Eczema, Urticaria Past Family Social History Allergies: Coded Allergies: No Known Allergies (Unverified , 12/12/16) Past Medical History A. Fib Dyslipidemia Osteoporosis? Reported Medications Temazepam 15 Mg Cap 15 Mg PO HS PRN Omeprazole 20 Mg Tab 20 Mg PO DAILY [Vitamin B1] Lexapro (Escitalopram Oxalate) 5 Mg Tab 5 Mg PO DAILY Atorvastatin (Atorvastatin Calcium) 10 Mg Tab 10 Mg PO HS Theragran-M (Multiple Vitamins W/ Minerals) 1 Tab 1 Tab PO DAILY Prinivil (Lisinopril) 10 Mg Tab 10 Mg PO DAILY Metoprolol Tartrate 100 Mg Tab 100 Mg PO BID Calcium 500 +D (Calcium Carbonate-Cholecalciferol) 500-400 Mg-Unit Tab 1 Tab PO DAILY Aspirin 325 Mg Tab 325 Mg PO DAILY Active Ordered Medications Current Medications Medications (Trade) Dose Ordered Sig/Lizzie Route PRN Reason Start Time Stop Time Status Last Admin Dose Admin IV Flush (NS Flush) 2 ml UNSCH PRN IV FLUSH FLUSH AFTER USING IV ACCESS 12/12/16 18:15 IV Flush (NS Flush) 2 ml BID IV FLUSH 12/12/16 21:00 12/12/16 22:13 Acetaminophen (Tylenol) 650 mg Q6H PRN PO FEVER >101F 12/12/16 18:15 Acetaminophen/ Hydrocodone Bitart ([place] 5-325 Mg) 1 tab Q4H PRN PO PAIN SCALE 1 TO 5 12/12/16 18:15 Morphine Sulfate (Morphine Inj) 2 mg Q2H PRN IV PAIN SCALE 6 TO 10 12/12/16 18:15 Ondansetron HCl (Zofran Inj) 4 mg Q6H PRN IV NAUSEA OR VOMITING 12/12/16 18:15 Docusate Sodium (Colace) 100 mg BID PO 12/12/16 21:00 12/12/16 22:13 Sennosides (Senokot) 17.2 mg Q12H PRN PO CONSTIPATION 12/12/16 18:15 Miscellaneous Information 1 [id number] XX 12/12/16 18:15 Chlorhexidine Gluconate (Chlorhexidine 2% Cloth) 3 pack Taper DAILY@04 TOP 12/13/16 04:00 12/09/17 03:59 12/12/16 22:13 Chlorhexidine Gluconate (Chlorhexidine 2% Cloth) 3 pack UNSCH PRN TOP HYGIENIC CARE 12/12/16 18:15 Metoprolol Tartrate (Lopressor Inj) 2.5 mg Q6H IV PUSH 12/12/16 22:00 12/12/16 22:13 Pantoprazole Sodium (Protonix) 40 mg DAILY PO 12/13/16 09:00 Multivitamins 1 tab 1 tab DAILY PO 12/13/16 09:00 Thiamine HCl/ Sodium Chloride (Thiamine Inj/NS Inj) 101 ml @ 101 mls/hr DAILY IV 12/13/16 09:00 Folic Acid (Folate) 1 mg DAILY PO 12/13/16 09:00 Metoprolol Tartrate 5 mg 5 mg Q5M IV PUSH 12/12/16 22:40 12/12/16 22:51 12/12/16 22:45 Sodium Chloride 1,000 ml @ 999 mls/hr BOLUS ONCE IV 12/12/16 22:45 12/12/16 23:45 Sodium Chloride (NS 1000 ml Inj) 1,000 ml @ 999 mls/hr BOLUS ONCE IV 12/12/16 22:45 12/12/16 23:45 Chlordiazepoxide (Librium) 50 mg ONCE PO 12/12/16 22:45 12/13/16 01:00 Social History Former alcohol abuse Physical Exam Vital Signs Vital Signs Date Time Temp Pulse Resp B/P Pulse Ox O2 Delivery O2 Flow Rate FiO2 12/12/16 21:56 97.4 124 20 117/95 94 12/12/16 21:20 118 18 96 12/12/16 21:19 120 18 112/68 96 Room Air 12/12/16 20:00 115 18 110/71 96 Room Air 12/12/16 19:17 Room Air 21 12/12/16 19:16 110 18 104/67 96 Room Air 12/12/16 18:50 98 21 12/12/16 17:44 132 18 117/99 94 Room Air 12/12/16 16:26 148 16 120/91 96 Nasal Cannula 2 12/12/16 15:38 92 Nasal Cannula 2 12/12/16 15:26 18 96 Room Air 12/12/16 15:17 97.5 130 18 130/96 96 Physical Exam GENERAL: Well-nourished, well-developed patient. SKIN: Warm and dry. HEAD: Normocephalic. EYES: No scleral icterus. No injection or drainage. NECK: Supple, trachea midline. No JVD or lymphadenopathy. CARDIOVASCULAR: Regular rate and rhythm without murmurs, gallops, or rubs. RESPIRATORY: Breath sounds equal bilaterally. No accessory muscle use. GASTROINTESTINAL: Abdomen soft, non-tender, nondistended. MUSCULOSKELETAL: No cyanosis, or edema. BACK: Nontender without obvious deformity. No CVA tenderness. Laboratory Laboratory Tests Test 12/12/16 12/12/16 12/12/16 16:00 17:40 19:40 White Blood Count 6.2 Red Blood Count 5.09 Hemoglobin 15.9 Hematocrit 49.9 Mean Corpuscular Volume 98.1 Mean Corpuscular Hemoglobin 31.2 Mean Corpuscular Hemoglobin 31.8 Concent Red Cell Distribution Width 16.0 Platelet Count 76 Mean Platelet Volume 11.1 Neutrophils (%) (Auto) 70.1 Lymphocytes (%) (Auto) 20.1 Monocytes (%) (Auto) 8.9 Eosinophils (%) (Auto) 0.3 Basophils (%) (Auto) 0.6 Neutrophils # (Auto) 4.3 Lymphocytes # (Auto) 1.3 Monocytes # (Auto) 0.6 Eosinophils # (Auto) 0.0 Basophils # (Auto) 0.0 CBC Comment AUTO DIFF Differential Comment AUTO DIFF CONFIRMED Platelet Estimate LOW Platelet Morphology Comment ENLARGED Red Cell Morphology Comment NORMAL Sodium Level 140 Potassium Level 3.3 Chloride Level 95 Carbon Dioxide Level 32.2 Anion Gap 13 Blood Urea Nitrogen 28 Creatinine 2.00 Estimat Glomerular Filtration 33 Rate Random Glucose 105 Calcium Level 8.9 Magnesium Level 1.9 Total Bilirubin 3.0 Aspartate Amino Transf 559 (AST/SGOT) Alanine Aminotransferase 426 (ALT/SGPT) Alkaline Phosphatase 84 Total Creatine Kinase 3209 Creatine Kinase MB 43.8 Creatine Kinase MB % 1.4 Troponin I 0.15 B-Type Natriuretic Peptide 1643 Total Protein 6.4 Albumin 3.3 Lipase 127 Urine Collection Type VOIDED Urine Color YELLOW Urine Turbidity CLEAR Urine pH 5.5 Urine Specific [place] 1.015 Urine Protein 100 Urine Glucose (UA) NEG Urine Ketones TRACE Urine Occult Blood MOD Urine Nitrite NEG Urine Bilirubin MOD Urine Leukocyte Esterase NEG Urine WBC 0-2 Microscopic Urinalysis Comment CULT NOT INDICATED Urine Eosinophils NONE SEEN Urine Random Creatinine 135.7 Urine Random Sodium 73 Urine Collection Time 1740 Lactic Acid Level 3.5 Ammonia 24 Result Diagram: 12/12/16 1600 12/12/16 1600 Imaging Last 24 hours Impressions Chest X-Ray 12/12/16 1548 Signed Impressions: Service Date/Time: November 16:28 - CONCLUSION: Stable exam. Emy Franklin MD Liver Ultrasound 12/12/16 0000 Signed Impressions: Service Date/Time: November 20:18 - CONCLUSION: Ascites. Hepatic venocongestion. Keven Hamilton MD Abdomen/Pelvis CT 12/12/16 0000 Signed Impressions: Service Date/Time: November 18:22 - CONCLUSION: Cardiomegaly and small pleural effusions. Ascites in the abdomen. No acute focal findings. Keven Hamilton MD Assessment and Plan Problem List: (1) Atrial fibrillation with rapid ventricular response ICD Code: I48.91 Status: Acute (2) Chronic systolic CHF (congestive heart failure) ICD Code: I50.22 Status: Acute Assessment and Plan A. fib with RVR - metoprolol i.v. Q5min x 3 now - resume p.o. metoprolol - volume depletion? - i.v. fluid resuscitation - repeat Echo - last Echo 30%EF - CHADS 3 - Lovenox 100mg subQ daily with transition to p.o. Pradaxa 150 BID CHF - last EF 30-35% - Hold ACEi due to PONCE - Continue BB - avoid Cardizem - consider Digoxin or Amiodarone if still rapid - anticoagulation with Lovenox/Pradaxa PONCE - nausea - dehydration - i.v. fluids - monitor I&O - monitor electrolytes History of ETOH - Thiamine - Folate - MVI - monitor for withdrawal DVT/GI prophylaxis - Lovenox/Protonix Critical Care: The total critical care time was 35 minutes. Time to perform other separately billable procedures was not included in the critical care time. Ashish Pinon MD Dec 12, 2016 22:43
[2016-12-12] MEDS ORDERED: chlordiazePOXIDE 25 MG CAP PO SCH (22:45)
[2016-12-12] MEDS ORDERED: SODIUM CHLOR 0.9% 1000 ML INJ 1,000 ML IV ONE ×2 (22:45)
[2016-12-13] VITALS (14 sets, daily range): BP systolic 112–146; BP diastolic 71–102; PULSE 84–138; RESP 20–22; TEMP 97.7–98.4; O2SAT 90–95
[2016-12-13] MEDS: SODIUM CHLOR 0.9% 1000 ML INJ 1,000 ML IV SCH ×3 (00:53→23:33)
[2016-12-13] MEDS ORDERED: ENOXAPARIN SODIUM 100 MG/ML SYRINGE SQ SCH (01:00)
[2016-12-13] MEDS ORDERED: DIGOXIN 0.5 MG/2 ML VIAL IV PUSH ONE (01:00)
[2016-12-13] MEDS ORDERED: AMIODARONE INJ 150 MG in DEXTROSE 5% IN WATER 100ML INJ 97 ML IV ONE ×2 (02:00)
[2016-12-13] MEDS ORDERED: AMIODARONE INJ 450 MG in DEXTROSE 5% IN WATE(EXCEL) INJ 241 ML IV SCH ×2 (02:00)
[2016-12-13] MEDS: METOPROLOL TARTRATE 5 MG/5 ML VIAL IV PUSH SCH (04:31)
--- NOTE | 2016-12-13 05:05 | RADRPT ---
EXAM DATE/TIME: 12/13/2016 03:36 [facility] COMPARISON: CHEST SINGLE AP, December 12, 2016, 16:28. INDICATIONS : Shortness of breath. MEDICAL HISTORY : Hypertension. SURGICAL HISTORY : None. ENCOUNTER: Subsequent ACUITY: 2 days PAIN SCORE: Non-responsive. LOCATION: Bilateral chest FINDINGS: Cardiomegaly and left lower lobe consolidation. Right lung is clear. Osseous structures are intact. CONCLUSION: Left basilar airspace disease. Nito Rodríguez MD on December 13, 2016 at 5:03 Board Certified Radiologist. This report was verified electronically.
[2016-12-13] MEDS ORDERED: METOPROLOL TARTRATE 100 MG TAB PO SCH (08:00)
[2016-12-13] MEDS: THIAMINE HCL 100 MG TAB PO SCH (08:26)
[2016-12-13] MEDS: DOCUSATE SODIUM 100 MG CAP PO SCH ×2 (08:26→20:12)
[2016-12-13] MEDS: PANTOPRAZOLE SOD 40 MG DELAYED RELEASE TAB PO SCH (08:26)
[2016-12-13] MEDS: FOLIC ACID 1 MG TAB PO SCH (08:26)
[2016-12-13] MEDS: MULTIVITAMIN TAB PO SCH (08:26)
[2016-12-13] MEDS: SODIUM CHLORIDE 0.9% FLUSH 5 ML FLUSH IV FLUSH SCH ×2 (08:26→20:12)
[2016-12-13] MEDS ORDERED: METOPROLOL TARTRATE 50 MG TAB PO SCH (09:00)
[2016-12-13] MEDS ORDERED: MULTIVITAMIN TAB PO SCH (09:00)
[2016-12-13] MEDS ORDERED: THIAMINE INJ 100 MG in SODIUM CHLORIDE 0.9% INJ 100 ML IV SCH (09:00)
[2016-12-13] MEDS ORDERED: FOLIC ACID 1 MG TAB PO SCH (09:00)
[2016-12-13] MEDS ORDERED: METOPROLOL TARTRATE 50 MG TAB PO ONE (10:45)
--- NOTE | 2016-12-13 12:05 | HHI.CCPN ---
Subjective Remarks/Hospital Course 71 year old male with former alcohol abuse, a. fib noncompliant with metoprolol 100mg PO BID presents with generalized weakness and abdominal bloating. He was seen here 12/10/16 and found to be in rapid afib, rhabdomyolysis and PONCE and left AMA. Pt states that he feels the same so he came back. 12/13 Patient is awake and alert placed on Amio drip overnight. Afebrile. Remains in Afib with RVR Objective Vital Signs Date Time Temp Pulse Resp B/P Pulse Ox O2 Delivery O2 Flow Rate FiO2 12/13/16 10:30 95 12/13/16 10:00 120 12/13/16 08:00 97.7 20 112/71 12/12/16 21:19 Room Air 12/12/16 19:17 21 12/12/16 16:26 2 Intake and Output 12/12/16 12/12/16 12/13/16 08:00 16:00 00:00 Output Total 200 ml Balance -200 ml Result Diagram: 12/12/16 1600 12/12/16 1600 Other Results Laboratory Tests Test 12/12/16 12/12/16 12/12/16 12/12/16 16:00 17:40 19:40 22:00 White Blood Count 6.2 TH/MM3 Red Blood Count 5.09 MIL/MM3 Hemoglobin 15.9 GM/DL Hematocrit 49.9 % Mean Corpuscular Volume 98.1 FL Mean Corpuscular Hemoglobin 31.2 PG Mean Corpuscular Hemoglobin 31.8 % Concent Red Cell Distribution Width 16.0 % Platelet Count 76 TH/MM3 Mean Platelet Volume 11.1 FL Neutrophils (%) (Auto) 70.1 % Lymphocytes (%) (Auto) 20.1 % Monocytes (%) (Auto) 8.9 % Eosinophils (%) (Auto) 0.3 % Basophils (%) (Auto) 0.6 % Neutrophils # (Auto) 4.3 TH/MM3 Lymphocytes # (Auto) 1.3 TH/MM3 Monocytes # (Auto) 0.6 TH/MM3 Eosinophils # (Auto) 0.0 TH/MM3 Basophils # (Auto) 0.0 TH/MM3 CBC Comment AUTO DIFF Differential Comment AUTO DIFF CONFIRMED Platelet Estimate LOW Platelet Morphology Comment ENLARGED Red Cell Morphology Comment NORMAL Sodium Level 140 MEQ/L Potassium Level 3.3 MEQ/L Chloride Level 95 MEQ/L Carbon Dioxide Level 32.2 MEQ/L Anion Gap 13 MEQ/L Blood Urea Nitrogen 28 MG/DL Creatinine 2.00 MG/DL Estimat Glomerular Filtration 33 ML/MIN Rate Random Glucose 105 MG/DL Calcium Level 8.9 MG/DL Magnesium Level 1.9 MG/DL Total Bilirubin 3.0 MG/DL Aspartate Amino Transf 559 U/L (AST/SGOT) Alanine Aminotransferase 426 U/L (ALT/SGPT) Alkaline Phosphatase 84 U/L Total Creatine Kinase 3209 U/L Creatine Kinase MB 43.8 NG/ML Creatine Kinase MB % 1.4 % Troponin I 0.15 NG/ML B-Type Natriuretic Peptide 1643 PG/ML Total Protein 6.4 GM/DL Albumin 3.3 GM/DL Lipase 127 U/L Urine Collection Type VOIDED Urine Color YELLOW Urine Turbidity CLEAR Urine pH 5.5 Urine Specific [place] 1.015 Urine Protein 100 mg/dL Urine Glucose (UA) NEG mg/dL Urine Ketones TRACE mg/dL Urine Occult Blood MOD Urine Nitrite NEG Urine Bilirubin MOD Urine Leukocyte Esterase NEG Urine WBC 0-2 /hpf Microscopic Urinalysis Comment CULT NOT INDICATED Urine Eosinophils NONE SEEN /HPF Urine Random Creatinine 135.7 MG/DL Urine Random Sodium 73 MEQ/L Urine Collection Time 1740 Lactic Acid Level 3.5 mmol/L Ammonia 24 MCMOL/L Nasal Screen MRSA (PCR) NEGATIVE Imaging Last Impressions Chest X-Ray 12/13/16 0601 Signed Impressions: Service Date/Time: Tuesday, December 13, 2016 03:36 - CONCLUSION: Left basilar airspace disease. Nito Rodríguez MD Liver Ultrasound 12/12/16 0000 Signed Impressions: Service Date/Time: November 20:18 - CONCLUSION: Ascites. Hepatic venocongestion. Kveen Hamilton MD Abdomen/Pelvis CT 12/12/16 0000 Signed Impressions: Service Date/Time: November 18:22 - CONCLUSION: Cardiomegaly and small pleural effusions. Ascites in the abdomen. No acute focal findings. Keven Hamilton MD Objective Remarks GENERAL: Well-nourished, well-developed patient. SKIN: Warm and dry. HEAD: Normocephalic. EYES: No scleral icterus. No injection or drainage. NECK: Supple, trachea midline. No JVD or lymphadenopathy. CARDIOVASCULAR: Tachycardic, Irregular, without murmurs, gallops, or rubs. RESPIRATORY: Breath sounds equal bilaterally. No accessory muscle use. GASTROINTESTINAL: Abdomen soft, non-tender, nondistended. MUSCULOSKELETAL: No cyanosis, or edema. Neuro: Awake and alert A/P Problem List: (1) Atrial fibrillation with rapid ventricular response ICD Code: I48.91 Status: Acute (2) Chronic systolic CHF (congestive heart failure) ICD Code: I50.22 Status: Acute Assessment and Plan 1)Resp Insuff 2)A. fib with RVR 3)CHF 4)PONCE 5)History of ETOH abuse 6)Thrombocytopenia 7)Elevated CK's 8)Lactic acidemia Plan Neuro: Awake and alert Continue with Thiamine/MVI/Folic acid Pulm: Continue with oxygen keep sat >92% Bronchodilators CV: Monitor HR and BP keep MAP>65mmHg. Monitor lactic acid Amio drip is d/c by cards ( 2nd elevated LFT), Lopressor increased 100mg Q12 For 2D echo to eval LV function. Discussed with cards- Dr. Qureshi. : Monitor renal function, I/O's, avoid nephrotoxins Continue with IVF NS@125ml/hr GI: Monitor LFT's, check hepatitis profile. Will proceed with US guided paracentesis. US liver showed ascites, hepatic venocongestion ID: Place on abx( Zosyn) monitor for signs of infections ( Fever, WBC) CXR showed left basilar airspace disease on 12/12, check sputum cx Heme: Monitor CBC, coags Endo: SSI if needed for glycemic control GI prophylaxis- on Protonix 40mg daily DVT prophylaxis: SCD's, will hold off on AC prophylaxis 2nd thrombocytopenia Level 3 Carlos Hernandez MD Dec 13, 2016 12:05
[2016-12-13 13:20] LABS: AUTOMATED NEUTROPHIL # 2.8 TH/MM3 (1.8-7.7); BASOPHIL # 0.2 TH/MM3 (0-0.2); BASOPHIL % 3.9 % (0.0-2.0); EOSINOPHIL % 0.8 % (0.0-4.0); HEMATOCRIT 43.7 % (39.0-51.0); LYMPH % 18.3 % (9.0-44.0); LYMPHOCYTE # 0.7 TH/MM3 (1.0-4.8); MEAN CELL VOLUME 97.5 FL (80.0-100.0); MEAN CORPUSCULAR HEMOGLOBIN 32.4 PG (27.0-34.0); MEAN CORPUSCULAR HGB CONC 33.2 % (32.0-36.0); MONO % 7.7 % (0.0-8.0); NEUT % 69.3 % (16.0-70.0); PLATELET COUNT 71 TH/MM3 (150-450); RED BLOOD COUNT 4.48 MIL/MM3 (4.50-5.90); RED CELL DISTRIBUTION WIDTH 15.9 % (11.6-17.2); WHITE BLOOD COUNT 4.1 TH/MM3 (4.0-11.0)
[2016-12-13 13:23] LABS: HEMO FLAGS AUTO DIFF
[2016-12-13 13:29] LABS: APTT (PATIENT) 36.6 SEC (24.3-30.1); INTERNATIONAL NORMALIZED RATIO 1.6 RATIO; PROTHROMBIN TIME - PATIENT 18.2 SEC (9.8-11.6)
[2016-12-13 13:44] LABS: INDIRECT BILIRUBIN 1.7 MG/DL (0.0-0.8); TOTAL BILIRUBIN ADULT 2.6 MG/DL (0.2-1.0)
[2016-12-13 13:51] LABS: MAGNESIUM 1.6 MG/DL (1.5-2.5)
[2016-12-13 13:55] LABS: SCAN/DIFF AUTO DIFF CONFIRMED
[2016-12-13 13:56] LABS: BURR CELLS 1+ (NORMAL)
[2016-12-13 13:57] LABS: PLATELET ESTIMATE SMEAR LOW (NORMAL); PLATELET MORPHOLOGY ENLARGED (NORMAL)
[2016-12-13 14:04] LABS: HDL CHOLESTEROL 17.1 MG/DL (40.0-60.0)
[2016-12-13 14:39] LABS: CKMB 24.4 NG/ML (0.5-3.6)
[2016-12-13] MEDS: PIPERACIL-TAZO 3.375 GM PREMIX 50 ML IV SCH ×2 (14:47→20:12)
--- NOTE | 2016-12-13 15:21 | MB ---
cc: MIKE GOLDEN MD DATE OF CONSULTATION: 12/13/2016 REASON FOR CONSULTATION Atrial fibrillation with rapid ventricular rate. HISTORY OF PRESENT ILLNESS Mr. Neil is a 71-year-old man who is known to me. He, however, has not followed up in nearly two years. He has a history of an alcoholic cardiomyopathy, atrial fibrillation, hypertension and CHF. The patient reports that he had been doing quite well and was taking his medications as directed that were supplied to him by his PCP. He notes in August 2016 his BP was a bit low and at that time the diltiazem and lisinopril were discontinued. He notes he stopped drinking about one month ago about the time friends noticed his eyes were yellow. He also has been taking his metoprolol sporadically. He presented to the emergency room with nausea and poor appetite as he feels that he has been bloated. He states that he has been unable to sleep or really eat for the last month or so. He notes he also had some lightheadedness. He denies, however, any chest pain. He occasionally had some shortness of breath. PAST MEDICAL HISTORY 1. Alcoholic cardiomyopathy. His initial EF was approximately 32%. By December 2014 it had increased to 43%. 2. Atrial fibrillation and was not on anticoagulation secondary to the alcoholic cardiomyopathy and relatively low CHADS-VASc score of 3 with a point for hypertension, age over 65 and heart failure. 3. Hypertension. 4. Hyperlipidemia. 5. CHF. 6. Noncompliance. SOCIAL HISTORY The patient is a former drinker. He does not smoke. ALLERGIES No known drug allergies. MEDICATIONS Outpatient medications include: 1. Temazepam. 2. Omeprazole. 3. Lexapro. 4. Atorvastatin. 5. Metoprolol. 6. Aspirin. REVIEW OF SYSTEMS Except as mentioned in the HPI all 12 systems are negative. FAMILY HISTORY Noncontributory. PHYSICAL EXAMINATION VITAL SIGNS: On physical examination vital signs currently are pulse 120, blood pressure 120/80, respiratory rate 20, saturation 95%. GENERAL: In general he is an overweight man who is in no apparent distress. NECK: His neck is free from JVD. LUNGS: The lungs are decreased but clear to auscultation. CARDIOVASCULAR: On cardiovascular examination he has an irregularly irregular tachycardic rhythm. No rubs or gallops appreciated. ABDOMEN: The abdomen is soft. EXTREMITIES: The extremities do have 1+ edema throughout. LABORATORY Lab values are significant for: Platelet count 76. Creatinine 2.0, potassium 3.3. Total bilirubin 3, AST 559, ALT 426. Troponin 0.15. BNP 1643. IMAGING Chest x-ray shows left basilar airspace disease. EKG EKG shows atrial fibrillation with rapid ventricular rate. IMPRESSIONS/RECOMMENDATIONS 1. Atrial fibrillation with rapid ventricular rate: The patient was given metoprolol, Cardizem and digoxin, and is currently on an amiodarone drip. At this point I definitely would stop the amiodarone secondary to his hepatic failure. I would stop the Lovenox secondary to his elevated LFTs, visible jaundice and thrombocytopenia with a platelet count of 76. I would not put him on any anticoagulation at this point. As well I would stop the digoxin secondary to the renal insufficiency. I would rate control him with metoprolol and have increased the metoprolol back to his outpatient dosing of 100 mg b.i.d. I have also given IV Lopressor for additional p.r.n. rate control if needed. Again, regarding anticoagulation his CHADS-VASc score is 3 with a point for CHF, hypertension and age over 65. The short-term and long-term anticoagulation is felt to be relatively contraindicated with thrombocytopenia. 2. Alcoholic cardiomyopathy: His last EF was 43% and an echo is currently pending. An ANJELICA inhibitor is felt relatively contraindicated at this point with his renal insufficiency and marginal blood pressure. This can be reevaluated later during his admission. 3. Hepatorenal insufficiency: This was discussed with the code official and we are going to conservatively manage him at this point. If he responds nicely to the diuresis we will continue with this. If not, nephrology and possibly GI will be consulted. 4. CHF: This is an acute on chronic systolic and diastolic heart failure. He obviously has a complicated process given his cardiac insufficiency, renal insufficiency and hepatic insufficiency as outlined above. Jose Jeong/MIGNON /10:47 AM /2:52 PM
--- NOTE | 2016-12-13 16:18 | EC ---
Study Study Date:12/13/2016 STUDY CONCLUSIONS SUMMARY - Left ventricle: The cavity size was dilated. Wall thickness was normal. Systolic function was severely reduced. The estimated ejection fraction was 15%. Wall motion was normal; there were no regional wall motion abnormalities. - Mitral valve: Mild regurgitation. - Left atrium: The atrium was mildly dilated. - Right ventricle: The cavity size was mildly dilated. Wall thickness was normal. - Right atrium: The atrium was dilated. - Tricuspid valve: Moderate regurgitation. - Pulmonary arteries: Systolic pressure was moderately increased. PA peak pressure: 53mm Hg (S). If LV function is below 40, please consider prescribing an ACEI or ARB or document rationale for non-use. PROCEDURE DATA STUDY STATUS: Elective. Procedure: Transthoracic echocardiography. Image quality was good. Scanning was performed from the parasternal, apical, and subcostal acoustic windows. Study completion: The patient tolerated the procedure well. Transthoracic echocardiography. M-mode, complete 2D, complete spectral Doppler, and color Doppler. Patient status: Inpatient. CARDIAC ANATOMY LEFT VENTRICLE: The cavity size was dilated. Wall thickness was normal. Systolic function was severely reduced. The estimated ejection fraction was 15%. Wall motion was normal; there were no regional wall motion abnormalities. AORTIC VALVE: Trileaflet; normal thickness leaflets. Doppler: Transvalvular velocity was within the normal range. There was no stenosis. No regurgitation. AORTA: Aortic root: The aortic root was mildly dilated. MITRAL VALVE: Structurally normal valve. Doppler: Transvalvular velocity was within the normal range. There was no evidence for stenosis. Mild regurgitation. LEFT ATRIUM: The atrium was mildly dilated. RIGHT VENTRICLE: The cavity size was mildly dilated. Wall thickness was normal. PULMONIC VALVE: Doppler: Transvalvular velocity was within the normal range. There was no evidence for stenosis. No regurgitation. TRICUSPID VALVE: Structurally normal valve. Doppler: Transvalvular velocity was within the normal range. Moderate regurgitation. PULMONARY ARTERY: The main pulmonary artery was normal-sized. Systolic pressure was moderately increased. RIGHT ATRIUM: The atrium was dilated. PERICARDIUM: There was no pericardial effusion. SYSTEMIC VEINS: Inferior vena cava: The vessel was normal in size. BASIC MEASUREMENTS ADULT Normal Left ventricle LV internal dimension, ED, chordal level, *56 mm 43-52 PLAX LV internal dimension, ES, chordal level, *54.2 mm 23-38 PLAX Fractional shortening, chordal level, PLAX *3 % >29 LV posterior wall thickness, ED 10 mm IVS/LVPW ratio, ED 1.18 <1.3 Ventricular septum Septal thickness, ED 11.8 mm Aortic valve Leaflet separation 26 mm 15-26 Left atrium Anterior-posterior dimension 45 mm Right ventricle RV internal dimension, ED, PLAX 25.4 mm 19-38 BASIC MEASUREMENTS ADULT Normal Aortic valve Leaflet separation 26 mm 15-26 Aorta Root diameter, ED *41 mm 20-37 DOPPLER MEASUREMENTS ADULT Normal Main pulmonary artery Pressure, S *53 mm Hg =30 Mitral valve Peak E-wave velocity 60.9 cm/s Maximal regurgitant velocity 390 cm/s Tricuspid valve Regurgitant peak velocity 228 cm/s Peak RV-RA gradient, S 21 mm Hg Maximal regurgitant velocity 228 cm/s Systemic veins Estimated CVP 15 mm Hg Right ventricle RV pressure, S *53 mm Hg <30 LEGEND: Mean values are shown as u=mean value. Asterisk (*) boucher values outside specified normal range. Prepared and signed by Shannon Robertson [id number]
--- NOTE | 2016-12-13 16:19 | RADRPT ---
EXAM DATE/TIME: 12/13/2016 15:26 [facility] COMPARISON: No previous studies available for comparison. INDICATIONS : Ascites. MEDICAL HISTORY : Hypercholesterolemia. Hypertension. A-Fib. Inguinal hernia. Osteopenia. SURGICAL HISTORY : Inguinal hernia repair. ENCOUNTER: Initial ACUITY: 1 day PAIN SCORE: 2/10 LOCATION: Bilateral abdomen. AREA EVALUATED: Abdomen. FINDINGS: Imaging of the abdomen and pelvis was performed to evaluate for ascites for possible paracentesis. CONCLUSION: There is not enough ascites for safe paracentesis. Reji Rivera MD FACR on December 13, 2016 at 16:15 Board Certified Radiologist. This report was verified electronically.
--- NOTE | 2016-12-13 16:39 | EKG ---
Date Performed: 12/12/2016 Time Performed: 15:36:52 PTAGE: 71 years EKG: Atrial fibrillation with rapid ventricular response with PVC(s) Possible left anterior fasc icular block Incomplete RBBB Septal and lateral ST-T changes are nonspecific Low QRS voltages in prec ordial leads Abnormal ECG PREVIOUS TRACING : 12/10/2016 16.39 Compared to prior tracing no significant change DOCTOR: Jose Quiñonez Interpretating Date/Time 12/13/2016 16:38:09
[2016-12-13 19:02] LABS: CKMB 22.4 NG/ML (0.5-3.6)
[2016-12-13] MEDS: METOPROLOL TARTRATE 100 MG TAB PO SCH (20:11)
[2016-12-13] MEDS: METOPROLOL TARTRATE 5 MG/5 ML VIAL IV PUSH PRN (23:32)
[2016-12-13] MEDS: CHLORHEXIDINE GLUCONATE 2 % 1 PACK (2 CLOTHS) TOP SCH (23:33)
[2016-12-14] VITALS (11 sets, daily range): BP systolic 105–145; BP diastolic 60–92; PULSE 100–166; RESP 17–20; TEMP 96.5–98.8; O2SAT 90–97
[2016-12-14 02:29] LABS: CKMB 20.6 NG/ML (0.5-3.6)
[2016-12-14] MEDS: PIPERACIL-TAZO 3.375 GM PREMIX 50 ML IV SCH ×3 (05:44→21:00)
[2016-12-14] MEDS: METOPROLOL TARTRATE 5 MG/5 ML VIAL IV PUSH PRN (05:44)
[2016-12-14 07:21] LABS: AUTOMATED NEUTROPHIL # 2.8 TH/MM3 (1.8-7.7); BASOPHIL % 0.8 % (0.0-2.0); EOSINOPHIL # 0.1 TH/MM3 (0-0.4); EOSINOPHIL % 1.7 % (0.0-4.0); HEMATOCRIT 45.4 % (39.0-51.0); LYMPH % 22.8 % (9.0-44.0); MEAN CELL VOLUME 97.6 FL (80.0-100.0); MEAN CORPUSCULAR HEMOGLOBIN 32.4 PG (27.0-34.0); MEAN CORPUSCULAR HGB CONC 33.2 % (32.0-36.0); MONO % 8.7 % (0.0-8.0); PLATELET COUNT 72 TH/MM3 (150-450); RED BLOOD COUNT 4.65 MIL/MM3 (4.50-5.90); RED CELL DISTRIBUTION WIDTH 15.9 % (11.6-17.2); WHITE BLOOD COUNT 4.3 TH/MM3 (4.0-11.0)
[2016-12-14 07:31] LABS: HEMO FLAGS AUTO DIFF
[2016-12-14 07:36] LABS: ALKALINE PHOSPHATASE 66 U/L (45-117); ALT (GPT) 276 U/L (12-78); ANION GAP 13 MEQ/L (5-15); AST (GOT) 271 U/L (15-37); BICARBONATE 29.5 MEQ/L (21.0-32.0); BLOOD UREA NITROGEN 24 MG/DL (7-18); CHLORIDE 100 MEQ/L (98-107); CREATINE KINASE 1416 U/L (39-308); GLOMERULAR FILTRATION RATE 43 ML/MIN (>89); MAGNESIUM 1.8 MG/DL (1.5-2.5); SODIUM (NA) 142 MEQ/L (136-145); TOTAL BILIRUBIN ADULT 2.1 MG/DL (0.2-1.0)
--- NOTE | 2016-12-14 07:48 | HHI.CCPN ---
Subjective Remarks/Hospital Course 71 year old male with former alcohol abuse, a. fib noncompliant with metoprolol 100mg PO BID presents with generalized weakness and abdominal bloating. He was seen here 12/10/16 and found to be in rapid afib, rhabdomyolysis and PONCE and left AMA. Pt states that he feels the same so he came back. 12/13 Patient is awake and alert placed on Amio drip overnight. Afebrile. Remains in Afib with RVR 12/14 No acute events overnight. Off Amio drip, feeling better still in Afib with RVR intermittently. On room air oxygen when seen. Afebrile. Objective Vital Signs Date Time Temp Pulse Resp B/P Pulse Ox O2 Delivery O2 Flow Rate FiO2 12/14/16 06:00 116 12/14/16 04:00 98.6 17 136/91 90 12/12/16 21:19 Room Air 12/12/16 19:17 21 12/12/16 16:26 2 Intake and Output 12/13/16 12/13/16 12/14/16 08:00 16:00 00:00 Intake Total 3066 ml 550 ml 688 ml Output Total 300 ml 300 ml Balance 2766 ml 250 ml 688 ml Result Diagram: 12/14/16 0527 12/12/16 1600 Other Results Laboratory Tests Test 12/13/16 12/13/16 12/13/16 12/14/16 13:05 17:52 23:54 05:27 White Blood Count 4.1 TH/MM3 4.3 TH/MM3 Red Blood Count 4.48 MIL/MM3 4.65 MIL/MM3 Hemoglobin 14.5 GM/DL 15.1 GM/DL Hematocrit 43.7 % 45.4 % Mean Corpuscular Volume 97.5 FL 97.6 FL Mean Corpuscular Hemoglobin 32.4 PG 32.4 PG Mean Corpuscular Hemoglobin 33.2 % 33.2 % Concent Red Cell Distribution Width 15.9 % 15.9 % Platelet Count 71 TH/MM3 72 TH/MM3 Mean Platelet Volume 12.0 FL 11.8 FL Neutrophils (%) (Auto) 69.3 % 66.0 % Lymphocytes (%) (Auto) 18.3 % 22.8 % Monocytes (%) (Auto) 7.7 % 8.7 % Eosinophils (%) (Auto) 0.8 % 1.7 % Basophils (%) (Auto) 3.9 % 0.8 % Neutrophils # (Auto) 2.8 TH/MM3 2.8 TH/MM3 Lymphocytes # (Auto) 0.7 TH/MM3 1.0 TH/MM3 Monocytes # (Auto) 0.3 TH/MM3 0.4 TH/MM3 Eosinophils # (Auto) 0.0 TH/MM3 0.1 TH/MM3 Basophils # (Auto) 0.2 TH/MM3 0.0 TH/MM3 CBC Comment AUTO DIFF AUTO DIFF Differential Comment AUTO DIFF CONFIRMED Platelet Estimate LOW Platelet Morphology Comment ENLARGED Ovalocytes Lisbet Cells 1+ Prothrombin Time 18.2 SEC Prothromb Time International 1.6 RATIO Ratio Activated Partial 36.6 SEC Thromboplast Time Lactic Acid Level 1.6 mmol/L Phosphorus Level 3.0 MG/DL Magnesium Level 1.6 MG/DL Total Bilirubin 2.6 MG/DL Direct Bilirubin 0.9 MG/DL Indirect Bilirubin 1.7 MG/DL Aspartate Amino Transf 409 U/L (AST/SGOT) Alanine Aminotransferase 349 U/L (ALT/SGPT) Alkaline Phosphatase 67 U/L Total Creatine Kinase 2201 U/L 2009 U/L 1915 U/L Creatine Kinase MB 24.4 NG/ML 22.4 NG/ML 20.6 NG/ML Creatine Kinase MB % 1.1 % 1.1 % 1.1 % Troponin I 0.13 NG/ML Total Protein 5.6 GM/DL Albumin 3.0 GM/DL Triglycerides Level 87 MG/DL Cholesterol Level 65 MG/DL LDL Cholesterol 31 MG/DL HDL Cholesterol 17.1 MG/DL Cholesterol/HDL Ratio 3.80 RATIO Imaging Last Impressions Chest X-Ray 12/13/16 0601 Signed Impressions: Service Date/Time: Tuesday, December 13, 2016 03:36 - CONCLUSION: Left basilar airspace disease. Nito Rodríguez MD Liver Ultrasound 12/12/16 0000 Signed Impressions: Service Date/Time: November 20:18 - CONCLUSION: Ascites. Hepatic venocongestion. Keven Hamilton MD Abdomen/Pelvis CT 12/12/16 0000 Signed Impressions: Service Date/Time: November 18:22 - CONCLUSION: Cardiomegaly and small pleural effusions. Ascites in the abdomen. No acute focal findings. Keven Hamilton MD Objective Remarks GENERAL: Well-nourished, well-developed patient. SKIN: Warm and dry. HEAD: Normocephalic. EYES: No scleral icterus. No injection or drainage. NECK: Supple, trachea midline. No JVD or lymphadenopathy. CARDIOVASCULAR: Tachycardic, Irregular, without murmurs, gallops, or rubs. RESPIRATORY: Breath sounds equal bilaterally. No accessory muscle use. GASTROINTESTINAL: Abdomen soft, non-tender, nondistended. MUSCULOSKELETAL: No cyanosis, or edema. Neuro: Awake and alert A/P Problem List: (1) Atrial fibrillation with rapid ventricular response ICD Code: I48.91 Status: Acute (2) Chronic systolic CHF (congestive heart failure) ICD Code: I50.22 Status: Acute Assessment and Plan 1)Resp Insuff 2)A. fib with RVR 3)Cardiomyopathy with EF 15% 4)PONCE 5)History of ETOH abuse 6)Thrombocytopenia 7)Elevated CK's 8)Lactic acidemia Plan Neuro: Awake and alert Continue with Thiamine/MVI/Folic acid Pulm: Oxygen prn keep sat >92% Bronchodilators CV: Monitor HR and BP keep MAP>65mmHg. Monitor lactic acid On Lopressor 100mg Q12. Not on Livan-I yet due to PONCE Echo showed EF 15%, mod TR, PAP 53mmHg, cards- Dr. Qureshi. : Monitor renal function, I/O's, avoid nephrotoxins Decrease IVF NS@50 ml/hr, monitor CK's GI: Monitor LFT's, hepatitis profile pending US abdomen did not show enough ascites for paracentesis US liver showed ascites, hepatic venocongestion ID: Continue with ( Zosyn) monitor for signs of infections ( Fever, WBC) CXR showed left basilar airspace disease on 12/13, check sputum cx Heme: Monitor CBC, coags Endo: SSI if needed for glycemic control GI prophylaxis- on Protonix 40mg daily DVT prophylaxis: SCD's, will hold off on AC prophylaxis 2nd thrombocytopenia Level 3 Carlos Hernandez MD Dec 14, 2016 07:48
[2016-12-14 07:49] LABS: POTASSIUM 2.8 MEQ/L (3.5-5.1)
[2016-12-14 08:09] LABS: CKMB 15.1 NG/ML (0.5-3.6)
[2016-12-14] MEDS: POTASSIUM CHLOR 20 MEQ PREMIX 100 ML IV SCH ×2 (08:34→10:00)
[2016-12-14] MEDS: METOPROLOL TARTRATE 100 MG TAB PO SCH ×2 (08:34→21:00)
[2016-12-14] MEDS: MULTIVITAMIN TAB PO SCH (08:34)
[2016-12-14] MEDS: THIAMINE HCL 100 MG TAB PO SCH (08:34)
[2016-12-14] MEDS: SODIUM CHLORIDE 0.9% FLUSH 5 ML FLUSH IV FLUSH SCH ×2 (08:35→21:00)
[2016-12-14] MEDS: FOLIC ACID 1 MG TAB PO SCH (09:00)
[2016-12-14] MEDS: DOCUSATE SODIUM 100 MG CAP PO SCH ×2 (09:00→21:00)
[2016-12-14] MEDS: PANTOPRAZOLE SOD 40 MG DELAYED RELEASE TAB PO SCH (09:00)
[2016-12-14 09:32] LABS: BURR CELLS 1+ (NORMAL); PLATELET ESTIMATE SMEAR LOW (NORMAL); PLATELET MORPHOLOGY ENLARGED (NORMAL); SCAN/DIFF AUTO DIFF CONFIRMED
--- NOTE | 2016-12-14 12:00 | PD.CARD.PN ---
Subjective Subjective Remarks no complaints or overnight events Objective Medications Current Medications Medications (Trade) Dose Ordered Sig/Lizzie Route Start Time Stop Time Status Last Admin (NS Flush) 2 ml UNSCH PRN IV FLUSH 12/12/16 18:15 (NS Flush) 2 ml BID IV FLUSH 12/12/16 21:00 12/14/16 08:35 (Tylenol) 650 mg Q6H PRN PO 12/12/16 18:15 ([place] 5-325 Mg) 1 tab Q4H PRN PO 12/12/16 18:15 (Morphine Inj) 2 mg Q2H PRN IV 12/12/16 18:15 (Zofran Inj) 4 mg Q6H PRN IV 12/12/16 18:15 (Colace) 100 mg BID PO 12/12/16 21:00 12/12/16 22:13 (Senokot) 17.2 mg Q12H PRN PO 12/12/16 18:15 Miscellaneous Information 1 Q361D XX 12/12/16 18:15 (Chlorhexidine 2% Cloth) 3 pack Taper DAILY@04 TOP 12/13/16 04:00 12/09/17 03:59 12/13/16 23:33 (Chlorhexidine 2% Cloth) 3 pack UNSCH PRN TOP 12/12/16 18:15 Pantoprazole Sodium 40 mg 40 mg DAILY PO 12/13/16 09:00 12/14/16 09:00 (NS 1000 ml Inj) 1,000 ml @ 50 mls/hr Q20H IV 12/12/16 23:45 12/13/16 23:33 (Vitamin B1) 100 mg DAILY PO 12/13/16 09:00 12/14/16 08:34 (Folate) 1 mg DAILY PO 12/13/16 09:00 12/14/16 09:00 (Theragran) 1 tab DAILY PO 12/13/16 09:00 12/14/16 08:34 (Lopressor) 100 mg Q12H PO 12/13/16 21:00 12/14/16 08:34 Metoprolol Tartrate 5 mg 5 mg Q2HR PRN IV PUSH 12/13/16 10:45 12/14/16 05:44 Piperacillin Sod/ Tazobactam Sod 50 ml @ 100 mls/hr Q8H IV 12/13/16 13:00 12/14/16 05:44 (KCl 20 Meq Premix Inj) 100 ml @ 50 mls/hr Q2H IV 12/14/16 08:00 12/14/16 11:59 12/14/16 10:00 Vital Signs / I&O Vital Signs Date Time Temp Pulse Resp B/P Pulse Ox O2 Delivery O2 Flow Rate FiO2 12/14/16 08:41 94 21 12/14/16 08:00 98.3 100 17 105/60 96 12/14/16 08:00 122 12/14/16 06:00 116 12/14/16 04:00 100 12/14/16 04:00 98.6 100 17 136/91 90 12/14/16 02:00 117 12/14/16 00:00 98.8 109 20 122/92 95 12/14/16 00:00 109 12/13/16 22:00 122 12/13/16 20:00 124 12/13/16 20:00 98.4 124 21 146/102 94 12/13/16 18:00 88 12/13/16 16:00 98.0 138 20 120/77 94 12/13/16 16:00 95 12/13/16 14:00 84 12/13/16 12:00 97.9 121 21 112/84 90 12/13/16 12:00 89 I/O 12/13/16 12/13/16 12/13/16 12/14/16 12/14/16 12/14/16 07:00 15:00 23:00 07:00 15:00 23:00 Intake Total 3066 ml 550 ml 688 ml 168 ml Output Total 300 ml 300 ml Balance 2766 ml 250 ml 688 ml 168 ml Intake IV Total 3066 ml 550 ml 688 ml 168 ml Output Urine Total 300 ml 300 ml Physical Exam GENERAL: Well-nourished, well-developed patient. SKIN: Warm and dry. HEAD: Normocephalic. EYES: No scleral icterus. No injection or drainage. NECK: Supple, trachea midline. No JVD or lymphadenopathy. CARDIOVASCULAR: Irr Irr no murmurs, gallops, or rubs. RESPIRATORY: Breath sounds equal bilaterally. No accessory muscle use. GASTROINTESTINAL: Abdomen soft, non-tender, nondistended. EXTREMITIES: No cyanosis, or edema. NEUROLOGICAL: Awake, alert, and oriented x 3. Non-focal. Laboratory Laboratory Tests Test 12/13/16 12/13/16 12/13/16 12/14/16 13:05 17:52 23:54 05:27 White Blood Count 4.1 TH/MM3 4.3 TH/MM3 Red Blood Count 4.48 MIL/MM3 4.65 MIL/MM3 Hemoglobin 14.5 GM/DL 15.1 GM/DL Hematocrit 43.7 % 45.4 % Mean Corpuscular Volume 97.5 FL 97.6 FL Mean Corpuscular Hemoglobin 32.4 PG 32.4 PG Mean Corpuscular Hemoglobin 33.2 % 33.2 % Concent Red Cell Distribution Width 15.9 % 15.9 % Platelet Count 71 TH/MM3 72 TH/MM3 Mean Platelet Volume 12.0 FL 11.8 FL Neutrophils (%) (Auto) 69.3 % 66.0 % Lymphocytes (%) (Auto) 18.3 % 22.8 % Monocytes (%) (Auto) 7.7 % 8.7 % Eosinophils (%) (Auto) 0.8 % 1.7 % Basophils (%) (Auto) 3.9 % 0.8 % Neutrophils # (Auto) 2.8 TH/MM3 2.8 TH/MM3 Lymphocytes # (Auto) 0.7 TH/MM3 1.0 TH/MM3 Monocytes # (Auto) 0.3 TH/MM3 0.4 TH/MM3 Eosinophils # (Auto) 0.0 TH/MM3 0.1 TH/MM3 Basophils # (Auto) 0.2 TH/MM3 0.0 TH/MM3 CBC Comment AUTO DIFF AUTO DIFF Differential Comment AUTO DIFF AUTO DIFF CONFIRMED CONFIRMED Platelet Estimate LOW LOW Platelet Morphology Comment ENLARGED ENLARGED Ovalocytes [place] Cells 1+ 1+ Prothrombin Time 18.2 SEC Prothromb Time International 1.6 RATIO Ratio Activated Partial 36.6 SEC Thromboplast Time Lactic Acid Level 1.6 mmol/L Phosphorus Level 3.0 MG/DL 3.3 MG/DL Magnesium Level 1.6 MG/DL 1.8 MG/DL Total Bilirubin 2.6 MG/DL 2.1 MG/DL Direct Bilirubin 0.9 MG/DL Indirect Bilirubin 1.7 MG/DL Aspartate Amino Transf 409 U/L 271 U/L (AST/SGOT) Alanine Aminotransferase 349 U/L 276 U/L (ALT/SGPT) Alkaline Phosphatase 67 U/L 66 U/L Total Creatine Kinase 2201 U/L 2009 U/L 1915 U/L 1416 U/L Creatine Kinase MB 24.4 NG/ML 22.4 NG/ML 20.6 NG/ML 15.1 NG/ML Creatine Kinase MB % 1.1 % 1.1 % 1.1 % 1.1 % Troponin I 0.13 NG/ML Total Protein 5.6 GM/DL 5.0 GM/DL Albumin 3.0 GM/DL 2.6 GM/DL Triglycerides Level 87 MG/DL Cholesterol Level 65 MG/DL LDL Cholesterol 31 MG/DL HDL Cholesterol 17.1 MG/DL Cholesterol/HDL Ratio 3.80 RATIO Sodium Level 142 MEQ/L Potassium Level 2.8 MEQ/L Chloride Level 100 MEQ/L Carbon Dioxide Level 29.5 MEQ/L Anion Gap 13 MEQ/L Blood Urea Nitrogen 24 MG/DL Creatinine 1.61 MG/DL Estimat Glomerular Filtration 43 ML/MIN Rate Random Glucose 63 MG/DL Calcium Level 7.9 MG/DL Imaging Last Impressions Chest X-Ray 12/13/16 0601 Signed Impressions: Service Date/Time: Tuesday, December 13, 2016 03:36 - CONCLUSION: Left basilar airspace disease. Nito Rodríguez MD Abdomen Ultrasound 12/13/16 0000 Signed Impressions: Service Date/Time: Tuesday, December 13, 2016 15:26 - CONCLUSION: There is not enough ascites for safe paracentesis. Reji Rivera MD FACR Liver Ultrasound 12/12/16 0000 Signed Impressions: Service Date/Time: November 20:18 - CONCLUSION: Ascites. Hepatic venocongestion. Keven Hamilton MD Abdomen/Pelvis CT 12/12/16 0000 Signed Impressions: Service Date/Time: November 18:22 - CONCLUSION: Cardiomegaly and small pleural effusions. Ascites in the abdomen. No acute focal findings. Keven Hamilton MD Assessment and Plan Problem List: (1) Cardiomyopathy Assessment and Plan: Cont rate controlled for Afib and aggressive medical therapy for HF. Given thrombocytopenia his not a good candidate for OAC at this time Off ACEI given PONCE Replete K+ and avoid electrolytes abnormalities (2) CHF exacerbation (3) Atrial fibrillation with rapid ventricular response (4) Chronic systolic CHF (congestive heart failure) (5) PONCE (acute kidney injury) Problem Qualifiers (1) Cardiomyopathy: Qualified Code: I42.6 - Alcoholic cardiomyopathy (2) CHF exacerbation: Qualified Code: I50.23 - Acute on chronic systolic congestive heart failure Meliton Moses MD Dec 14, 2016 12:00
[2016-12-14] MEDS: ONDANSETRON HCL 4 MG/2 ML VIAL IV PRN (20:59)
[2016-12-14] MEDS: CHLORHEXIDINE GLUCONATE 2 % 1 PACK (2 CLOTHS) TOP SCH (21:01)
[2016-12-14] MEDS ORDERED: POTASSIUM CHLOR 20 MEQ PREMIX 100 ML IV ONE (21:15)
[2016-12-15] VITALS (14 sets, daily range): BP systolic 92–127; BP diastolic 61–88; PULSE 107–132; RESP 18–24; TEMP 97.6–98.3; O2SAT 91–96
[2016-12-15] MEDS: SODIUM CHLOR 0.9% 1000 ML INJ 1,000 ML IV SCH (01:19)
--- NOTE | 2016-12-15 04:33 | RADRPT ---
EXAM DATE/TIME: 12/15/2016 03:14 [facility] COMPARISON: CHEST SINGLE AP, December 13, 2016, 3:36. INDICATIONS : Shortness of breath, possible pulmonary disease. MEDICAL HISTORY : Hypertension. SURGICAL HISTORY : None. ENCOUNTER: Subsequent ACUITY: 4 - 6 days PAIN SCORE: Non-responsive. LOCATION: Bilateral chest FINDINGS: There is a small right effusion and atelectasis. Left lower lobe consolidation and small left effusio n noted. This is increased from previous. There is cardiomegaly. Osseous structures are intact. CONCLUSION: Worsening appearance of the chest. Nito Rodríguez MD on December 15, 2016 at 4:31 Board Certified Radiologist. This report was verified electronically.
[2016-12-15] MEDS: PIPERACIL-TAZO 3.375 GM PREMIX 50 ML IV SCH ×3 (04:59→21:46)
[2016-12-15] MEDS: POTASSIUM CHLOR 20 MEQ PREMIX 100 ML IV SCH ×3 (05:00→15:10)
[2016-12-15 07:13] LABS: AUTOMATED NEUTROPHIL # 2.9 TH/MM3 (1.8-7.7); BASOPHIL # 0.1 TH/MM3 (0-0.2); BASOPHIL % 1.2 % (0.0-2.0); EOSINOPHIL % 0.8 % (0.0-4.0); HEMATOCRIT 47.1 % (39.0-51.0); LYMPH % 24.8 % (9.0-44.0); LYMPHOCYTE # 1.1 TH/MM3 (1.0-4.8); MEAN CELL VOLUME 98.7 FL (80.0-100.0); MEAN CORPUSCULAR HEMOGLOBIN 32.8 PG (27.0-34.0); MEAN CORPUSCULAR HGB CONC 33.2 % (32.0-36.0); MONO % 9.6 % (0.0-8.0); NEUT % 63.6 % (16.0-70.0); PLATELET COUNT 69 TH/MM3 (150-450); RED BLOOD COUNT 4.78 MIL/MM3 (4.50-5.90); WHITE BLOOD COUNT 4.6 TH/MM3 (4.0-11.0)
[2016-12-15 07:23] LABS: HEMO FLAGS AUTO DIFF
[2016-12-15 07:30] LABS: ANION GAP 11 MEQ/L (5-15); AST (GOT) 223 U/L (15-37); BICARBONATE 28.5 MEQ/L (21.0-32.0); BLOOD UREA NITROGEN 27 MG/DL (7-18); CHLORIDE 103 MEQ/L (98-107); GLOMERULAR FILTRATION RATE 36 ML/MIN (>89); POTASSIUM 3.5 MEQ/L (3.5-5.1); SODIUM (NA) 142 MEQ/L (136-145)
[2016-12-15 07:33] LABS: ALKALINE PHOSPHATASE 70 U/L (45-117); ALT (GPT) 269 U/L (12-78); TOTAL BILIRUBIN ADULT 1.8 MG/DL (0.2-1.0)
[2016-12-15] MEDS ORDERED: POTASSIUM CHLORIDE 10 MEQ CONTROLLED RELEASE TAB PO ONE (08:30)
[2016-12-15 09:36] LABS: BURR CELLS 1+ (NORMAL); PLATELET ESTIMATE SMEAR LOW (NORMAL); PLATELET MORPHOLOGY ENLARGED (NORMAL); SCAN/DIFF AUTO DIFF CONFIRMED
[2016-12-15] MEDS: MAGNESIUM SULFATE 1 GM PREMIX 100 ML IV SCH ×2 (10:17→15:10)
[2016-12-15] MEDS: PANTOPRAZOLE SOD 40 MG DELAYED RELEASE TAB PO SCH (10:17)
[2016-12-15] MEDS: THIAMINE HCL 100 MG TAB PO SCH (10:17)
[2016-12-15] MEDS: METOPROLOL TARTRATE 100 MG TAB PO SCH ×2 (10:18→21:46)
[2016-12-15] MEDS: SODIUM CHLORIDE 0.9% FLUSH 5 ML FLUSH IV FLUSH SCH ×2 (10:18→21:46)
[2016-12-15] MEDS: DOCUSATE SODIUM 100 MG CAP PO SCH ×3 (10:18→21:46)
[2016-12-15] MEDS: MULTIVITAMIN TAB PO SCH (10:22)
[2016-12-15] MEDS: FOLIC ACID 1 MG TAB PO SCH (10:22)
--- NOTE | 2016-12-15 11:44 | PD.CARD.PN ---
Subjective Subjective Remarks no overnight events Objective Medications Current Medications Medications (Trade) Dose Ordered Sig/Lizzie Route Start Time Stop Time Status Last Admin (NS Flush) 2 ml UNSCH PRN IV FLUSH 12/12/16 18:15 (NS Flush) 2 ml BID IV FLUSH 12/12/16 21:00 12/15/16 10:18 (Tylenol) 650 mg Q6H PRN PO 12/12/16 18:15 ([place] 5-325 Mg) 1 tab Q4H PRN PO 12/12/16 18:15 (Morphine Inj) 2 mg Q2H PRN IV 12/12/16 18:15 (Zofran Inj) 4 mg Q6H PRN IV 12/12/16 18:15 12/14/16 20:59 (Colace) 100 mg BID PO 12/12/16 21:00 12/15/16 10:18 (Senokot) 17.2 mg Q12H PRN PO 12/12/16 18:15 12/15/16 01:14 Miscellaneous Information 1 Q361D XX 12/12/16 18:15 (Chlorhexidine 2% Cloth) 3 pack Taper DAILY@04 TOP 12/13/16 04:00 12/09/17 03:59 12/14/16 21:01 (Chlorhexidine 2% Cloth) 3 pack UNSCH PRN TOP 12/12/16 18:15 Pantoprazole Sodium 40 mg 40 mg DAILY PO 12/13/16 09:00 12/15/16 10:17 (NS 1000 ml Inj) 1,000 ml @ 50 mls/hr Q20H IV 12/12/16 23:45 12/15/16 01:19 (Vitamin B1) 100 mg DAILY PO 12/13/16 09:00 12/15/16 10:17 (Folate) 1 mg DAILY PO 12/13/16 09:00 12/15/16 10:22 (Theragran) 1 tab DAILY PO 12/13/16 09:00 12/15/16 10:22 (Lopressor) 100 mg Q12H PO 12/13/16 21:00 12/15/16 10:18 Metoprolol Tartrate 5 mg 5 mg Q2HR PRN IV PUSH 12/13/16 10:45 12/14/16 05:44 (Zosyn 3.375 Gm Premix) 50 ml @ 100 mls/hr Q8H IV 12/13/16 13:00 12/15/16 04:59 Vital Signs / I&O Vital Signs Date Time Temp Pulse Resp B/P Pulse Ox O2 Delivery O2 Flow Rate FiO2 12/15/16 08:32 93 21 12/15/16 06:00 132 12/15/16 04:00 107 12/15/16 04:00 97.6 107 18 92/72 94 12/15/16 02:00 119 12/15/16 00:00 130 12/15/16 00:00 97.7 130 24 117/61 94 12/14/16 22:00 162 12/14/16 20:00 96.5 123 19 110/92 95 12/14/16 20:00 97 21 12/14/16 20:00 123 12/14/16 18:31 105 12/14/16 16:13 98.5 111 17 145/61 96 12/14/16 16:11 166 I/O 12/14/16 12/14/16 12/14/16 12/15/16 12/15/16 12/15/16 07:00 15:00 23:00 07:00 15:00 23:00 Intake Total 168 ml 150 ml 1175 ml 399 ml Output Total 600 ml Balance 168 ml -450 ml 1175 ml 399 ml Intake IV Total 168 ml 150 ml 1175 ml 399 ml Output Urine Total 600 ml # Voids 1 1 # Bowel Movements 1 1 1 Physical Exam GENERAL: Well-nourished, well-developed patient. SKIN: Warm and dry. HEAD: Normocephalic. EYES: No scleral icterus. No injection or drainage. NECK: Supple, trachea midline. No JVD or lymphadenopathy. CARDIOVASCULAR: Irr Irr no murmurs, gallops, or rubs. RESPIRATORY: Breath sounds equal bilaterally. No accessory muscle use. GASTROINTESTINAL: Abdomen soft, non-tender, nondistended. EXTREMITIES: No cyanosis, or edema. NEUROLOGICAL: Awake, alert, and oriented x 3. Non-focal. Laboratory Laboratory Tests Test 12/14/16 12/15/16 18:33 05:01 Potassium Level 3.0 MEQ/L 3.5 MEQ/L White Blood Count 4.6 TH/MM3 Red Blood Count 4.78 MIL/MM3 Hemoglobin 15.6 GM/DL Hematocrit 47.1 % Mean Corpuscular Volume 98.7 FL Mean Corpuscular Hemoglobin 32.8 PG Mean Corpuscular Hemoglobin 33.2 % Concent Red Cell Distribution Width 16.0 % Platelet Count 69 TH/MM3 Mean Platelet Volume 11.8 FL Neutrophils (%) (Auto) 63.6 % Lymphocytes (%) (Auto) 24.8 % Monocytes (%) (Auto) 9.6 % Eosinophils (%) (Auto) 0.8 % Basophils (%) (Auto) 1.2 % Neutrophils # (Auto) 2.9 TH/MM3 Lymphocytes # (Auto) 1.1 TH/MM3 Monocytes # (Auto) 0.4 TH/MM3 Eosinophils # (Auto) 0.0 TH/MM3 Basophils # (Auto) 0.1 TH/MM3 CBC Comment AUTO DIFF Differential Comment AUTO DIFF CONFIRMED Platelet Estimate LOW Platelet Morphology Comment ENLARGED [place] Cells 1+ Sodium Level 142 MEQ/L Chloride Level 103 MEQ/L Carbon Dioxide Level 28.5 MEQ/L Anion Gap 11 MEQ/L Blood Urea Nitrogen 27 MG/DL Creatinine 1.85 MG/DL Estimat Glomerular Filtration 36 ML/MIN Rate Random Glucose 104 MG/DL Calcium Level 8.4 MG/DL Total Bilirubin 1.8 MG/DL Aspartate Amino Transf 223 U/L (AST/SGOT) Alanine Aminotransferase 269 U/L (ALT/SGPT) Alkaline Phosphatase 70 U/L Total Protein 5.6 GM/DL Albumin 2.9 GM/DL Assessment and Plan Problem List: (1) Cardiomyopathy Assessment and Plan: Cont rate control with BB Dr. Qureshi will back in service tomorrow (2) CHF exacerbation (3) Atrial fibrillation with rapid ventricular response (4) Chronic systolic CHF (congestive heart failure) (5) PONCE (acute kidney injury) Problem Qualifiers (1) Cardiomyopathy: Qualified Code: I42.6 - Alcoholic cardiomyopathy (2) CHF exacerbation: Qualified Code: I50.23 - Acute on chronic systolic congestive heart failure Meliton Moses MD Dec 15, 2016 11:44
[2016-12-15] MEDS ORDERED: DILTIAZEM HCL 25 MG/5 ML VIAL ONE (12:01)
[2016-12-15] MEDS ORDERED: FUROSEMIDE 40 MG/4 ML VIAL IV PUSH ONE (13:00)
--- NOTE | 2016-12-15 13:11 | HHI.CCPN ---
Subjective Remarks/Hospital Course 71 year old male with former alcohol abuse, a. fib noncompliant with metoprolol 100mg PO BID presents with generalized weakness and abdominal bloating. He was seen here 12/10/16 and found to be in rapid afib, rhabdomyolysis and PONCE and left AMA. Pt states that he feels the same so he came back. 12/13 Patient is awake and alert placed on Amio drip overnight. Afebrile. Remains in Afib with RVR 12/14 No acute events overnight. Off Amio drip, feeling better still in Afib with RVR intermittently. On room air oxygen when seen. Afebrile. SUBJECTIVE: 12/15: Afebrile. C/O abd discomfort associated with eating. + BM. Denies CP, dyspnea. Objective Vital Signs Date Time Temp Pulse Resp B/P Pulse Ox O2 Delivery O2 Flow Rate FiO2 12/15/16 12:00 117 12/15/16 08:32 93 21 12/15/16 04:00 97.6 18 92/72 12/12/16 21:19 Room Air 12/12/16 16:26 2 Intake and Output 12/14/16 12/14/16 12/15/16 08:00 16:00 00:00 Intake Total 168 ml 150 ml 1175 ml Output Total 600 ml Balance 168 ml -450 ml 1175 ml Result Diagram: 12/15/16 0501 12/15/16 0501 Imaging Last Impressions Chest X-Ray 12/15/16 0000 Signed Impressions: Service Date/Time: Thursday, December 15, 2016 03:14 - CONCLUSION: Worsening appearance of the chest. Nito Rodríguez MD Abdomen Ultrasound 12/13/16 0000 Signed Impressions: Service Date/Time: Tuesday, December 13, 2016 15:26 - CONCLUSION: There is not enough ascites for safe paracentesis. Reji Rivera MD FACR Liver Ultrasound 12/12/16 0000 Signed Impressions: Service Date/Time: November 20:18 - CONCLUSION: Ascites. Hepatic venocongestion. Keven Hamilton MD Abdomen/Pelvis CT 12/12/16 0000 Signed Impressions: Service Date/Time: November 18:22 - CONCLUSION: Cardiomegaly and small pleural effusions. Ascites in the abdomen. No acute focal findings. Keven Hamilton MD Objective Remarks GENERAL: 71 yo ashly, critically ill in bed NAD SKIN: Warm and dry. No rash HEAD: NC/AT EYES: No scleral icterus. No injection or drainage. NECK: Supple, trachea midline. No JVD or lymphadenopathy.S1, S2. No S3 or S4. II/ Murmur LLSB RESPIRATORY: Breath sounds equal bilaterally. Few crackles in bases B/L GASTROINTESTINAL: Abdomen soft, non-tender, sl distended. +BS MUSCULOSKELETAL: trace B/L LE edema. Neuro: Awake and alert A/P Problem List: (1) Atrial fibrillation with rapid ventricular response ICD Code: I48.91 Status: Acute (2) Chronic systolic CHF (congestive heart failure) ICD Code: I50.22 Status: Acute Assessment and Plan Plan Neuro/Psych: Hx ETOH Awake and alert Continue with Thiamine/MVI/Folic acid Monitor for DT's Acetaminophen for fever. Stanton for pain Pulm: Oxygen prn keep sat >92% Bronchodilators CV: Systolic HF TR Afib w/RVR LA - resolved Monitor HR and BP keep MAP>65mmHg. Monitor lactic acid On Lopressor 100mg Q12. Not on Livan-I yet due to PONCE Echo showed EF 15%, NRWMA, JACQUELINE, RV dilation, mod TR, PAP 53mmHg, cards- Dr. Qureshi. 15 mg Cardizem x1 today. Lasix 40 MG iv ONCE /Renal: PONCE Monitor renal function, I/O's, avoid nephrotoxins neg Ueos Cr slowly increasing. No hydro on CT A/P. Priya >10 GI: Elevated transaminases Low albumin Monitor LFT's, hepatitis profile pending US abdomen did not show enough ascites for paracentesis US liver showed ascites, hepatic venocongestion ID: Continue with (Zosyn) monitor for signs of infections ( Fever, WBC) CXR showed left basilar airspace disease on 12/13, check sputum cx Heme: Thrombocytopenia Monitor CBC, coags Endo: SSI if needed for glycemic control GI prophylaxis- on Protonix 40mg daily DVT prophylaxis: SCD's, will hold off on AC prophylaxis 2nd thrombocytopenia Level 3 Roberto Ly MD Dec 15, 2016 13:11
[2016-12-15] MEDS: RESP: ALBUTEROL 2.5 MG/IPRATROPIUM 0.5 MG NEB (SCH) NEB ×2 (16:38→20:46)
[2016-12-15] MEDS: CHLORHEXIDINE GLUCONATE 2 % 1 PACK (2 CLOTHS) TOP SCH (21:46)
[2016-12-16] VITALS (13 sets, daily range): BP systolic 94–143; BP diastolic 75–89; PULSE 61–127; RESP 12–18; TEMP 97.9–98.3; O2SAT 92–99
[2016-12-16] MEDS: ONDANSETRON HCL 4 MG/2 ML VIAL IV PRN ×4 (01:44→20:13)
[2016-12-16] MEDS: ACETAMINOPHEN/HYDROcodone 325 MG/5 MG TAB PO PRN (01:44)
[2016-12-16] MEDS: RESP: ALBUTEROL 2.5 MG/IPRATROPIUM 0.5 MG NEB (SCH) NEB ×4 (03:56→22:13)
[2016-12-16] MEDS: PIPERACIL-TAZO 3.375 GM PREMIX 50 ML IV SCH (06:12)
[2016-12-16 07:11] LABS: ALKALINE PHOSPHATASE 74 U/L (45-117); ALT (GPT) 231 U/L (12-78); ANION GAP 10 MEQ/L (5-15); AST (GOT) 186 U/L (15-37); BICARBONATE 27.7 MEQ/L (21.0-32.0); BLOOD UREA NITROGEN 25 MG/DL (7-18); CHLORIDE 103 MEQ/L (98-107); CREATINE KINASE 897 U/L (39-308); GLOMERULAR FILTRATION RATE 36 ML/MIN (>89); MAGNESIUM 2.1 MG/DL (1.5-2.5); POTASSIUM 3.6 MEQ/L (3.5-5.1); SODIUM (NA) 141 MEQ/L (136-145)
[2016-12-16 07:17] LABS: AUTOMATED NEUTROPHIL # 2.4 TH/MM3 (1.8-7.7); BASOPHIL % 1.2 % (0.0-2.0); EOSINOPHIL % 1.2 % (0.0-4.0); HEMATOCRIT 46.2 % (39.0-51.0); LYMPH % 28.8 % (9.0-44.0); LYMPHOCYTE # 1.2 TH/MM3 (1.0-4.8); MEAN CELL VOLUME 97.8 FL (80.0-100.0); MEAN CORPUSCULAR HEMOGLOBIN 32.5 PG (27.0-34.0); MEAN CORPUSCULAR HGB CONC 33.2 % (32.0-36.0); MONO % 12.4 % (0.0-8.0); NEUT % 56.4 % (16.0-70.0); PLATELET COUNT 63 TH/MM3 (150-450); RED BLOOD COUNT 4.72 MIL/MM3 (4.50-5.90); RED CELL DISTRIBUTION WIDTH 16.2 % (11.6-17.2); WHITE BLOOD COUNT 4.2 TH/MM3 (4.0-11.0)
[2016-12-16 07:20] LABS: HEMO FLAGS AUTO DIFF
[2016-12-16 07:37] LABS: CKMB 12.9 NG/ML (0.5-3.6)
--- NOTE | 2016-12-16 07:42 | PD.CARD.PN ---
Subjective Subjective Remarks PT c/o double room...still not sleeping Objective Medications Current Medications Medications (Trade) Dose Ordered Sig/Lizzie Route Start Time Stop Time Status Last Admin (NS Flush) 2 ml UNSCH PRN IV FLUSH 12/12/16 18:15 (NS Flush) 2 ml BID IV FLUSH 12/12/16 21:00 12/15/16 21:46 (Tylenol) 650 mg Q6H PRN PO 12/12/16 18:15 ([place] 5-325 Mg) 1 tab Q4H PRN PO 12/12/16 18:15 12/16/16 01:44 (Morphine Inj) 2 mg Q2H PRN IV 12/12/16 18:15 (Zofran Inj) 4 mg Q6H PRN IV 12/12/16 18:15 12/16/16 01:44 (Colace) 100 mg BID PO 12/12/16 21:00 12/15/16 10:18 (Senokot) 17.2 mg Q12H PRN PO 12/12/16 18:15 12/15/16 01:14 Miscellaneous Information 1 Q361D XX 12/12/16 18:15 (Chlorhexidine 2% Cloth) 3 pack Taper DAILY@04 TOP 12/13/16 04:00 12/09/17 03:59 12/15/16 21:46 (Chlorhexidine 2% Cloth) 3 pack UNSCH PRN TOP 12/12/16 18:15 (Protonix) 40 mg DAILY PO 12/13/16 09:00 12/15/16 10:17 (Vitamin B1) 100 mg DAILY PO 12/13/16 09:00 12/15/16 10:17 (Folate) 1 mg DAILY PO 12/13/16 09:00 12/15/16 10:22 (Theragran) 1 tab DAILY PO 12/13/16 09:00 12/15/16 10:22 (Lopressor) 100 mg Q12H PO 12/13/16 21:00 12/15/16 21:46 Metoprolol Tartrate 5 mg 5 mg Q2HR PRN IV PUSH 12/13/16 10:45 12/14/16 05:44 (Zosyn 3.375 Gm Premix) 50 ml @ 100 mls/hr Q8H IV 12/13/16 13:00 12/16/16 06:12 Vital Signs / I&O Vital Signs Date Time Temp Pulse Resp B/P Pulse Ox O2 Delivery O2 Flow Rate FiO2 12/16/16 06:00 124 12/16/16 04:00 61 12/16/16 04:00 97.9 119 12 114/79 99 12/16/16 02:44 22 12/16/16 02:00 124 12/16/16 00:00 98.2 116 14 104/79 97 12/16/16 00:00 116 12/15/16 22:00 132 12/15/16 20:46 96 21 12/15/16 20:00 126 12/15/16 20:00 97.9 126 24 123/82 91 12/15/16 18:00 107 12/15/16 16:00 115 12/15/16 16:00 98.2 115 20 123/88 93 12/15/16 14:00 110 12/15/16 12:00 98.3 120 20 127/84 95 12/15/16 12:00 117 12/15/16 10:00 118 12/15/16 08:32 93 21 12/15/16 08:00 120 12/15/16 08:00 98.0 123 19 112/86 94 I/O 12/15/16 12/15/16 12/15/16 12/16/16 12/16/16 12/16/16 07:00 15:00 23:00 07:00 15:00 23:00 Intake Total 399 ml 805 ml 431 ml 439 ml Output Total 450 ml 300 ml Balance 399 ml 355 ml 431 ml 139 ml Intake IV Total 399 ml 805 ml 431 ml 439 ml Output Urine Total 450 ml 300 ml # Voids 1 1 2 # Bowel Movements 1 1 1 Physical Exam GENERAL: Well developed, well nourished. No acute distress. HEENT: Jugular venous pressure is normal. CHEST: Lungs decreased and clear to auscultation bilaterally. Unlabored respiratory effort. CARDIAC:irregular rate and rhythm without S3, S4, or murmur. ABDOMEN: Soft, nontender, no hepatosplenomegaly. Bowel sounds present. EXTREMITIES: No clubbing, cyanosis, 1+ edema. Laboratory Laboratory Tests Test 12/16/16 05:50 White Blood Count 4.2 TH/MM3 Red Blood Count 4.72 MIL/MM3 Hemoglobin 15.3 GM/DL Hematocrit 46.2 % Mean Corpuscular Volume 97.8 FL Mean Corpuscular Hemoglobin 32.5 PG Mean Corpuscular Hemoglobin 33.2 % Concent Red Cell Distribution Width 16.2 % Platelet Count 63 TH/MM3 Mean Platelet Volume 11.7 FL Neutrophils (%) (Auto) 56.4 % Lymphocytes (%) (Auto) 28.8 % Monocytes (%) (Auto) 12.4 % Eosinophils (%) (Auto) 1.2 % Basophils (%) (Auto) 1.2 % Neutrophils # (Auto) 2.4 TH/MM3 Lymphocytes # (Auto) 1.2 TH/MM3 Monocytes # (Auto) 0.5 TH/MM3 Eosinophils # (Auto) 0.0 TH/MM3 Basophils # (Auto) 0.0 TH/MM3 CBC Comment AUTO DIFF Sodium Level 141 MEQ/L Potassium Level 3.6 MEQ/L Chloride Level 103 MEQ/L Carbon Dioxide Level 27.7 MEQ/L Anion Gap 10 MEQ/L Blood Urea Nitrogen 25 MG/DL Creatinine 1.85 MG/DL Estimat Glomerular Filtration 36 ML/MIN Rate Random Glucose 102 MG/DL Calcium Level 8.1 MG/DL Phosphorus Level 3.7 MG/DL Magnesium Level 2.1 MG/DL Total Bilirubin 2.0 MG/DL Aspartate Amino Transf 186 U/L (AST/SGOT) Alanine Aminotransferase 231 U/L (ALT/SGPT) Alkaline Phosphatase 74 U/L Total Creatine Kinase 897 U/L Total Protein 5.4 GM/DL Albumin 2.7 GM/DL Imaging Last 72 hours Impressions Chest X-Ray 12/15/16 0000 Signed Impressions: Service Date/Time: Thursday, December 15, 2016 03:14 - CONCLUSION: Worsening appearance of the chest. Nito Rodríguez MD Assessment and Plan Problem List: (1) Atrial fibrillation with rapid ventricular response Assessment and Plan: Still with RVR increase metoprolol (2) Cardiomyopathy Assessment and Plan: EF 15% by ECHO, likely secondary to ETOH and AF RVR on BB, no ANJELICA secondary to CKD (3) CHF exacerbation Assessment and Plan: slow improvement (4) Chronic systolic CHF (congestive heart failure) (5) PONCE (acute kidney injury) (6) Thrombocytopenia Assessment and Plan: in 60's, no anticoagulation Problem Qualifiers (1) Cardiomyopathy: Qualified Code: I42.6 - Alcoholic cardiomyopathy (2) CHF exacerbation: Qualified Code: I50.23 - Acute on chronic systolic congestive heart failure Renée Qureshi MD Dec 16, 2016 07:42
[2016-12-16] MEDS: SODIUM CHLORIDE 0.9% FLUSH 5 ML FLUSH IV FLUSH SCH ×2 (08:23→20:14)
[2016-12-16] MEDS: POTASSIUM CHLORIDE 20 MEQ CONTROLLED RELEASE TAB PO SCH ×2 (08:23→20:13)
[2016-12-16] MEDS: DOCUSATE SODIUM 100 MG CAP PO SCH ×2 (08:23→20:14)
[2016-12-16] MEDS: PANTOPRAZOLE SOD 40 MG DELAYED RELEASE TAB PO SCH (08:23)
[2016-12-16] MEDS: MULTIVITAMIN TAB PO SCH (08:23)
[2016-12-16] MEDS: FOLIC ACID 1 MG TAB PO SCH (08:23)
[2016-12-16] MEDS: METOPROLOL TARTRATE 100 MG TAB PO SCH ×2 (08:24→20:13)
[2016-12-16] MEDS: THIAMINE HCL 100 MG TAB PO SCH (08:24)
[2016-12-16] MEDS: FUROSEMIDE 40 MG TAB PO SCH ×2 (08:26→17:20)
[2016-12-16 08:43] LABS: BURR CELLS 1+ (NORMAL); OVALOCYTES 1+ (NORMAL); PLATELET ESTIMATE SMEAR LOW (NORMAL); PLATELET MORPHOLOGY ENLARGED (NORMAL); SCAN/DIFF AUTO DIFF CONFIRMED
[2016-12-16] MEDS ORDERED: TEMAZEPAM 7.5 MG CAP PO PRN (11:45)
[2016-12-16] MEDS ORDERED: POTASSIUM CHLORIDE 10 MEQ CONTROLLED RELEASE TAB PO ONE (11:45)
--- NOTE | 2016-12-16 11:49 | HHI.CCPN ---
Subjective Remarks/Hospital Course 71 year old male with former alcohol abuse, a. fib noncompliant with metoprolol 100mg PO BID presents with generalized weakness and abdominal bloating. He was seen here 12/10/16 and found to be in rapid afib, rhabdomyolysis and PONCE and left AMA. Pt states that he feels the same so he came back. 12/13 Patient is awake and alert placed on Amio drip overnight. Afebrile. Remains in Afib with RVR 12/14 No acute events overnight. Off Amio drip, feeling better still in Afib with RVR intermittently. On room air oxygen when seen. Afebrile. 12/15: Afebrile. C/O abd discomfort associated with eating. + BM. Denies CP, dyspnea. SUBJECTIVE: 12/16: Afebrile. Complaining of some nausea. Complaining of insomnia. Chest pain/resolved. Denies shortness of breath. Positive BM. Objective Vital Signs Date Time Temp Pulse Resp B/P Pulse Ox O2 Delivery O2 Flow Rate FiO2 12/16/16 10:00 118 12/16/16 08:50 96 12/16/16 04:00 97.9 12 114/79 12/15/16 20:46 21 12/12/16 21:19 Room Air 12/12/16 16:26 2 Intake and Output 12/15/16 12/15/16 12/16/16 08:00 16:00 00:00 Intake Total 399 ml 805 ml 431 ml Output Total 450 ml Balance 399 ml 355 ml 431 ml Result Diagram: 12/16/16 0550 12/16/16 0550 Imaging Last Impressions Chest X-Ray 12/15/16 0000 Signed Impressions: Service Date/Time: Thursday, December 15, 2016 03:14 - CONCLUSION: Worsening appearance of the chest. Nito Rodríguez MD Abdomen Ultrasound 12/13/16 0000 Signed Impressions: Service Date/Time: Tuesday, December 13, 2016 15:26 - CONCLUSION: There is not enough ascites for safe paracentesis. Reji Rivera MD FACR Liver Ultrasound 12/12/16 0000 Signed Impressions: Service Date/Time: November 20:18 - CONCLUSION: Ascites. Hepatic venocongestion. Keven Hamilton MD Abdomen/Pelvis CT 12/12/16 0000 Signed Impressions: Service Date/Time: November 18:22 - CONCLUSION: Cardiomegaly and small pleural effusions. Ascites in the abdomen. No acute focal findings. Keven Hamilton MD Objective Remarks GENERAL: 71 yo male, sitting in chair NAD SKIN: Warm and dry. No rash HEAD: NC/AT EYES: No scleral icterus. No injection or drainage. NECK: Supple, trachea midline. No JVD or lymphadenopathy. CARDIAC: Tachycardia, IR. S1, S2. No S3 or S4. II/ Murmur LLSB RESPIRATORY: Breath sounds equal bilaterally. Few crackles in bases B/L GASTROINTESTINAL: Abdomen soft, non-tender, sl distended. +BS MUSCULOSKELETAL: trace B/L LE edema. Neuro: Awake and alert A/P Problem List: (1) Atrial fibrillation with rapid ventricular response ICD Code: I48.91 Status: Acute (2) Chronic systolic CHF (congestive heart failure) ICD Code: I50.22 Status: Acute Assessment and Plan Plan Neuro/Psych: Hx ETOH Awake and alert Continue with Thiamine/MVI/Folic acid Monitor for DT's Acetaminophen for fever. [place] for pain Pulm: Oxygen prn keep sat >92%. Currently room air Bronchodilators as needed Follow-up chest x-ray in a.m. CV: Systolic HF TR Afib w/RVR LA - resolved Monitor HR and BP keep MAP>65mmHg. Monitor lactic acid On Lopressor 150mg Q12. Not on Livan-I yet due to PONCE Echo showed EF 15%, NRWMA, JACQUELINE, RV dilation, mod TR, PAP 53mmHg, cards- Dr. Qureshi. Today started on Lasix 40 mg by mouth twice a day with potassium supplementation 20 mEq twice a day /Renal: PONCE Monitor renal function, I/O's, avoid nephrotoxins neg Ueos Cr slowly increasing. No hydro on CT A/P. Priya >10 GI: Elevated transaminases Low albumin Monitor LFT's, hepatitis profile pending US abdomen did not show enough ascites for paracentesis US liver showed ascites, hepatic venocongestion ID: Discontinue Zosyn Continue to monitor for signs of infections ( Fever, WBC) CXR showed left basilar airspace disease on 12/13 Heme: Thrombocytopenia Monitor CBC, coags Endo: SSI if needed for glycemic control GI prophylaxis- on Protonix 40mg daily DVT prophylaxis: SCD's, will hold off on AC prophylaxis 2nd thrombocytopenia Level 2 Patient is stable from a critical care medicine. We will assign care to hospitalist in a.m. 12/17. Transferred to [facility]. Roberto Ly MD Dec 16, 2016 11:49
[2016-12-17] VITALS (16 sets, daily range): BP systolic 101–131; BP diastolic 63–99; PULSE 100–127; RESP 18–20; TEMP 97.7–98.3; O2SAT 90–98
[2016-12-17] MEDS: ACETAMINOPHEN/HYDROcodone 325 MG/5 MG TAB PO PRN ×2 (00:30→23:17)
[2016-12-17] MEDS: ONDANSETRON HCL 4 MG/2 ML VIAL IV PRN ×3 (00:30→23:17)
[2016-12-17] MEDS: RESP: ALBUTEROL 2.5 MG/IPRATROPIUM 0.5 MG NEB (SCH) NEB ×4 (03:37→21:01)
[2016-12-17 04:28] LABS: INTERNATIONAL NORMALIZED RATIO 2.1 RATIO; PROTHROMBIN TIME - PATIENT 24.3 SEC (9.8-11.6)
[2016-12-17 08:44] LABS: HEMATOCRIT 48.7 % (39.0-51.0); MEAN CORPUSCULAR HEMOGLOBIN 32.6 PG (27.0-34.0); MEAN CORPUSCULAR HGB CONC 33.3 % (32.0-36.0); PLATELET COUNT 64 TH/MM3 (150-450); RED BLOOD COUNT 4.97 MIL/MM3 (4.50-5.90); RED CELL DISTRIBUTION WIDTH 16.2 % (11.6-17.2); WHITE BLOOD COUNT 4.9 TH/MM3 (4.0-11.0)
[2016-12-17 08:46] LABS: REVIEW FLAG FINAL
--- NOTE | 2016-12-17 09:38 | HHI.PR ---
Subjective Remarks sitting on the chair with no distress. denies chest pain or palpitation. has mild sob. says that had a good sleep last night. still tachycardic. d/w the RN and no other acute issues over night. Objective Vitals Vital Signs Date Time Temp Pulse Resp B/P Pulse Ox O2 Delivery O2 Flow Rate FiO2 12/17/16 06:00 127 12/17/16 04:00 121 20 127/63 90 12/17/16 04:00 121 12/17/16 02:00 118 12/17/16 01:30 18 12/17/16 00:36 113 12/17/16 00:36 119 18 109/80 91 12/17/16 00:00 117 12/17/16 00:00 119 18 131/86 91 12/16/16 22:00 119 12/16/16 20:00 120 18 143/84 94 12/16/16 20:00 120 12/16/16 18:00 106 12/16/16 16:00 102 12/16/16 16:00 98.3 117 14 110/76 93 12/16/16 14:00 110 12/16/16 12:00 114 12/16/16 12:00 98.2 125 12 94/75 93 12/16/16 10:00 118 I/O 12/16/16 12/16/16 12/16/16 12/17/16 12/17/16 12/17/16 07:00 15:00 23:00 07:00 15:00 23:00 Intake Total 439 ml 504 ml 321 ml 837 ml Output Total 300 ml 395 ml 0 ml 825 ml Balance 139 ml 109 ml 321 ml 12 ml Intake Oral 10 ml 470 ml IV Total 439 ml 504 ml 311 ml 367 ml Output Urine Total 300 ml 395 ml 0 ml 825 ml # Voids 2 # Bowel Movements 1 0 1 Result Diagram: 12/17/16 0830 12/16/16 0550 Imaging Last Impressions Chest X-Ray 12/15/16 0000 Signed Impressions: Service Date/Time: Thursday, December 15, 2016 03:14 - CONCLUSION: Worsening appearance of the chest. Nito Rodríguez MD Abdomen Ultrasound 12/13/16 0000 Signed Impressions: Service Date/Time: Tuesday, December 13, 2016 15:26 - CONCLUSION: There is not enough ascites for safe paracentesis. Reji Rivera MD FACR Liver Ultrasound 12/12/16 0000 Signed Impressions: Service Date/Time: November 20:18 - CONCLUSION: Ascites. Hepatic venocongestion. Keven Hamilton MD Abdomen/Pelvis CT 12/12/16 0000 Signed Impressions: Service Date/Time: November 18:22 - CONCLUSION: Cardiomegaly and small pleural effusions. Ascites in the abdomen. No acute focal findings. Keven Hamilton MD Objective Remarks GENERAL: This is a well-nourished, well-developed patient, in no apparent distress. CARDIOVASCULAR: tachycardic with irregular rhythm without murmurs, gallops, or rubs. RESPIRATORY: Clear to auscultation. Breath sounds equal bilaterally. No wheezes , rales, or rhonchi. GASTROINTESTINAL: Abdomen soft, non-tender, nondistended. Normal, active bowel sounds MUSCULOSKELETAL: Extremities with bilateral pedal edema. NEURO: Alert & Oriented x4 to person, place, time, situation. Moves all ext x4 Procedures none Medications and IVs Current Medications Metoprolol Succinate (Toprol Xl) 50 mg ONCE ONCE PO Last administered on 15:59; Start 12/12/16 at 16:00; Stop 12/12/16 at 16:01; Status DC Diltiazem HCl 25 mg 25 mg ONCE ONCE IV Last administered on 12/12/16 16:34; Start 12/12/16 at 16:30; Stop 12/12/16 at 16:31; Status DC Sodium Chloride (NS 500 ml Inj) 500 ml @ 500 mls/hr BOLUS ONCE IV ; Start at 16:30; Stop 12/12/16 at 16:37; Status DC Potassium Chloride (KCl) 40 meq ONCE ONCE PO Last administered on 12/12/16 16 :41; Start 12/12/16 at 16:30; Stop 12/12/16 at 16:31; Status DC Furosemide (Lasix Inj) 40 mg ONCE ONCE IV PUSH Last administered on 12/12/16 16:59; Start 12/12/16 at 17:00; Stop 12/12/16 at 17:01; Status DC Metoprolol Tartrate (Lopressor Inj) 2.5 mg ONCE STAT IV PUSH Last administered on 12/12/16 17:50; Start 12/12/16 at 17:44; Stop 12/12/16 at 17:45 ; Status DC IV Flush (NS Flush) 2 ml UNSCH PRN IV FLUSH FLUSH AFTER USING IV ACCESS; Start 12/12/16 at 18:15 IV Flush (NS Flush) 2 ml BID IV FLUSH Last administered on 12/16/16 20:14; Start 12/12/16 at 21:00 Acetaminophen (Tylenol) 650 mg Q6H PRN PO FEVER >101F; Start 12/12/16 at 18:15 Acetaminophen/ Hydrocodone Bitart ([place] 5-325 Mg) 1 tab Q4H PRN PO PAIN SCALE 1 TO 5 Last administered on 12/17/16 00:30; Start 12/12/16 at 18:15 Morphine Sulfate (Morphine Inj) 2 mg Q2H PRN IV PAIN SCALE 6 TO 10; Start 12/12 at 18:15 Ondansetron HCl (Zofran Inj) 4 mg Q6H PRN IV NAUSEA OR VOMITING Last administered on 12/17/16 00:30; Start 12/12/16 at 18:15 Docusate Sodium (Colace) 100 mg BID PO Last administered on 12/16/16 08:23; Start 12/12/16 at 21:00 Sennosides (Senokot) 17.2 mg Q12H PRN PO CONSTIPATION Last administered on 12/15 01:14; Start 12/12/16 at 18:15 Albuterol/ Ipratropium (Duoneb Neb) 1 ampule Q2HR NEB PRN INH WHEEZING; Start 12/12/16 at 18:15 Miscellaneous Information 1 Q361D XX ; Start 12/12/16 at 18:15 Chlorhexidine Gluconate (Chlorhexidine 2% Cloth) 3 pack Taper DAILY@04 TOP Last administered on 12/15/16 21:46; Start 12/13/16 at 04:00; Stop 12/09/17 at 03:59 Chlorhexidine Gluconate (Chlorhexidine 2% Cloth) 3 pack UNSCH PRN TOP HYGIENIC CARE; Start 12/12/16 at 18:15 Metoprolol Tartrate (Lopressor Inj) 2.5 mg Q6H IV PUSH Last administered on 04:31; Start 12/12/16 at 22:00; Stop 12/13/16 at 10:42; Status DC Pantoprazole Sodium (Protonix) 40 mg DAILY PO Last administered on 12/16/16 08 :23; Start 12/13/16 at 09:00 Multivitamins 1 tab 1 tab DAILY PO ; Start 12/13/16 at 09:00; Stop 12/13/16 at 09:00; Status DC Thiamine HCl/ Sodium Chloride (Thiamine Inj/NS Inj) 101 ml @ 101 mls/hr DAILY IV ; Start 12/13/16 at 09:00; Stop 12/13/16 at 09:00; Status DC Folic Acid (Folate) 1 mg DAILY PO ; Start 12/13/16 at 09:00; Stop 12/13/16 at 09 :00; Status DC Metoprolol Tartrate 5 mg 5 mg Q5M IV PUSH Last administered on 12/12/16 23:25 ; Start 12/12/16 at 22:40; Stop 12/12/16 at 22:51; Status DC Sodium Chloride 1,000 ml @ 999 mls/hr BOLUS ONCE IV Last administered on 12/12 23:25; Start 12/12/16 at 22:45; Stop 12/12/16 at 23:45; Status DC Sodium Chloride (NS 1000 ml Inj) 1,000 ml @ 999 mls/hr BOLUS ONCE IV Last administered on 12/13/16 00:53; Start 12/12/16 at 22:45; Stop 12/12/16 at 23:45 ; Status DC Chlordiazepoxide 50 mg 50 mg ONCE PO Last administered on 12/12/16 22:58; Start 12/12/16 at 22:45; Stop 12/13/16 at 01:00; Status DC Sodium Chloride (NS 1000 ml Inj) 1,000 ml @ 50 mls/hr Q20H IV Last administered on 12/15/16 01:19; Start 12/12/16 at 23:45; Stop 12/15/16 at 12:55 ; Status DC Thiamine HCl (Vitamin B1) 100 mg DAILY PO Last administered on 12/16/16 08:24 ; Start 12/13/16 at 09:00 Folic Acid (Folate) 1 mg DAILY PO Last administered on 12/16/16 08:23; Start 12/13/16 at 09:00 Multivitamins (Theragran) 1 tab DAILY PO Last administered on 12/16/16 08:23; Start 12/13/16 at 09:00 Enoxaparin Sodium (Lovenox Inj) 100 mg Q24H SQ Last administered on 12/13/16 00:54; Start 12/13/16 at 01:00; Stop 12/13/16 at 10:39; Status DC Digoxin 0.25 mg 0.25 mg NOW ONCE IV PUSH Last administered on 12/13/16 00:53 ; Start 12/13/16 at 01:00; Stop 12/13/16 at 01:01; Status DC Amiodarone HCl 150 mg/Dextrose 100 ml @ 600 mls/hr ONCE ONCE IV Last administered on 12/13/16 02:28; Start 12/13/16 at 02:00; Stop 12/13/16 at 10:39 ; Status DC Amiodarone HCl/ Dextrose (Cordarone Inj/ D5W ([place]) Inj) 250 ml @ 0 mls/hr CONTINUOUS IV Last administered on 12/13/16 02:28; Start 12/13/16 at 02:00; Stop 12/13/16 at 10:39; Status DC Metoprolol Tartrate (Lopressor) 100 mg Q12H PO ; Start 12/13/16 at 08:00; Stop 12/13/16 at 08:00; Status DC Metoprolol Tartrate (Lopressor) 50 mg Q12HR PO Last administered on 12/13/16 08:25; Start 12/13/16 at 09:00; Stop 12/13/16 at 10:39; Status DC Metoprolol Tartrate (Lopressor) 100 mg Q12H PO Last administered on 12/15/16 21:46; Start 12/13/16 at 21:00; Stop 12/16/16 at 07:47; Status DC Metoprolol Tartrate (Lopressor) 50 mg ONCE ONCE PO Last administered on 11:09; Start 12/13/16 at 10:45; Stop 12/13/16 at 10:47; Status DC Metoprolol Tartrate 5 mg 5 mg Q2HR PRN IV PUSH RAPID HEART RATE Last administered on 12/14/16 05:44; Start 12/13/16 at 10:45 Piperacillin Sod/ Tazobactam Sod 50 ml @ 100 mls/hr Q8H IV Last administered on 12/16/16 06:12; Start 12/13/16 at 13:00; Stop 12/16/16 at 11:43; Status DC Potassium Chloride 100 ml @ 50 mls/hr Q2H IV Last administered on 12/14/16 10 :00; Start 12/14/16 at 08:00; Stop 12/14/16 at 11:59; Status DC Potassium Chloride 100 ml @ 50 mls/hr ONCE ONCE IV Last administered on 22:02; Start 12/14/16 at 21:15; Stop 12/14/16 at 23:14; Status DC Potassium Chloride 100 ml @ 50 mls/hr Q2H IV Last administered on 12/15/16 15 :10; Start 12/15/16 at 04:30; Stop 12/15/16 at 10:29; Status DC Magnesium Sulfate/ Dextrose (Magnesium Sulfate 1 Gm Premix) 100 ml @ 100 mls/ hr Q1H IV Last administered on 12/15/16 15:10; Start 12/15/16 at 08:30; Stop 12/15/16 at 10:29; Status DC Potassium Chloride (KCl) 30 meq ONCE ONCE PO Last administered on 12/15/16 10 :18; Start 12/15/16 at 08:30; Stop 12/15/16 at 08:48; Status DC Diltiazem HCl (Cardizem Inj) [address]-MED ONCE .ROUTE ; Start 12/15/16 at 12:01 ; Stop 12/15/16 at 12:56; Status DC Furosemide (Lasix Inj) 40 mg ONCE ONCE IV PUSH Last administered on 12/15/16 13:47; Start 12/15/16 at 13:00; Stop 12/15/16 at 13:01; Status DC Albuterol/ Ipratropium (Duoneb Neb) 1 ampule Q6HR NEB NEB Last administered on 12/17/16 03:37; Start 12/15/16 at 16:00 Metoprolol Tartrate (Lopressor) 150 mg Q12HR PO Last administered on 12/16/16 20:13; Start 12/16/16 at 09:00 Furosemide (Lasix) 40 mg BID@09,18 PO Last administered on 12/16/16 17:20; Start 12/16/16 at 09:00 Potassium Chloride (KCl) 20 meq Q12HR PO Last administered on 12/16/16 20:13; Start 12/16/16 at 09:00 Temazepam (Restoril) 7.5 mg HS PRN PO insomnia; Start 12/16/16 at 11:45 Potassium Chloride (KCl) 10 meq ONCE ONCE PO Last administered on 12/16/16 13 :27; Start 12/16/16 at 11:45; Stop 12/16/16 at 12:05; Status DC A/P Assessment and Plan A/P - atrial fibrillation with rapid ventricular response- still tachycardic continue to monitor on telemetry- started on metoprolol 150 mg bid- echo with EF 15%- cardiology following. -cardiomyopathy- continue BB and diuretic- no ANJELICA-I due to renal insufficiency -renal insufficiency with unknown duration- renal function fairly stable- f/u as outpatient and this was d/w the patient -rhabdomyolysis- improving- -elevated LFT's/ coagulopathy/ thrombocytopenia; due to liver disease due to alcohol- will monitor- no evidence of bleeding -alcohol abuse; continue vitamin supplement- counselled on drinking cessation. for transfer to telemetry. Discharge Planning case management for [facility]. d/w the case management. Monie Mann MD Dec 17, 2016 09:38
--- NOTE | 2016-12-17 09:44 | HHI.FF ---
Face to Face Verification Diagnosis: (1) Atrial fibrillation with rapid ventricular response Home Health Nursing Order: Medical education Signs/symptoms of disease process Medication education-adverse effect Nursing assessment with vital signs I have seen patient Keven Neil on 12/17/16. My clinical findings support the need for the requested home health care services because: Ltd mobility - disease progression Patient has SOB I certify that my clinical findings support that this patient is homebound because: Poor cardiac reserve Monie Mann MD Dec 17, 2016 09:44
[2016-12-17] MEDS: FOLIC ACID 1 MG TAB PO SCH (09:49)
[2016-12-17] MEDS: DOCUSATE SODIUM 100 MG CAP PO SCH ×2 (09:49→19:54)
[2016-12-17] MEDS: PANTOPRAZOLE SOD 40 MG DELAYED RELEASE TAB PO SCH (09:49)
[2016-12-17] MEDS: SODIUM CHLORIDE 0.9% FLUSH 5 ML FLUSH IV FLUSH SCH ×2 (09:50→19:55)
[2016-12-17] MEDS: THIAMINE HCL 100 MG TAB PO SCH (09:50)
[2016-12-17] MEDS: METOPROLOL TARTRATE 100 MG TAB PO SCH ×2 (09:50→19:54)
[2016-12-17] MEDS: MULTIVITAMIN TAB PO SCH (09:50)
[2016-12-17] MEDS: POTASSIUM CHLORIDE 20 MEQ CONTROLLED RELEASE TAB PO SCH ×2 (09:50→19:54)
[2016-12-17] MEDS: FUROSEMIDE 40 MG TAB PO SCH ×2 (09:57→18:31)
--- NOTE | 2016-12-17 09:58 | PD.CARD.PN ---
Subjective Subjective Remarks Pt without complaints Objective Medications Current Medications Medications (Trade) Dose Ordered Sig/Lzizie Route Start Time Stop Time Status Last Admin (NS Flush) 2 ml UNSCH PRN IV FLUSH 12/12/16 18:15 (NS Flush) 2 ml BID IV FLUSH 12/12/16 21:00 12/17/16 09:50 (Tylenol) 650 mg Q6H PRN PO 12/12/16 18:15 ([place] 5-325 Mg) 1 tab Q4H PRN PO 12/12/16 18:15 12/17/16 00:30 (Morphine Inj) 2 mg Q2H PRN IV 12/12/16 18:15 (Zofran Inj) 4 mg Q6H PRN IV 12/12/16 18:15 12/17/16 00:30 (Colace) 100 mg BID PO 12/12/16 21:00 12/17/16 09:49 (Senokot) 17.2 mg Q12H PRN PO 12/12/16 18:15 12/15/16 01:14 Miscellaneous Information 1 Q361D XX 12/12/16 18:15 (Chlorhexidine 2% Cloth) 3 pack Taper DAILY@04 TOP 12/13/16 04:00 12/09/17 03:59 12/15/16 21:46 (Chlorhexidine 2% Cloth) 3 pack UNSCH PRN TOP 12/12/16 18:15 (Protonix) 40 mg DAILY PO 12/13/16 09:00 12/17/16 09:49 (Vitamin B1) 100 mg DAILY PO 12/13/16 09:00 12/17/16 09:50 (Folate) 1 mg DAILY PO 12/13/16 09:00 12/17/16 09:49 (Theragran) 1 tab DAILY PO 12/13/16 09:00 12/17/16 09:50 (Lopressor Inj) 5 mg Q2HR PRN IV PUSH 12/13/16 10:45 12/14/16 05:44 (Lopressor) 150 mg Q12HR PO 12/16/16 09:00 12/17/16 09:50 (Lasix) 40 mg BID@,18 PO 12/16/16 09:00 12/16/16 17:20 (KCl) 20 meq Q12HR PO 12/16/16 09:00 12/17/16 09:50 (Restoril) 7.5 mg HS PRN PO 12/16/16 11:45 Vital Signs / I&O Vital Signs Date Time Temp Pulse Resp B/P Pulse Ox O2 Delivery O2 Flow Rate FiO2 12/17/16 09:25 98 12/17/16 06:00 127 12/17/16 04:00 121 20 127/63 90 12/17/16 04:00 121 12/17/16 02:00 118 12/17/16 01:30 18 12/17/16 00:36 113 12/17/16 00:36 119 18 109/80 91 12/17/16 00:00 117 12/17/16 00:00 119 18 131/86 91 12/16/16 22:00 119 12/16/16 20:00 120 18 143/84 94 12/16/16 20:00 120 12/16/16 18:00 106 12/16/16 16:00 102 12/16/16 16:00 98.3 117 14 110/76 93 12/16/16 14:00 110 12/16/16 12:00 114 12/16/16 12:00 98.2 125 12 94/75 93 12/16/16 10:00 118 I/O 12/16/16 12/16/16 12/16/16 12/17/16 12/17/16 12/17/16 07:00 15:00 23:00 07:00 15:00 23:00 Intake Total 439 ml 504 ml 321 ml 837 ml Output Total 300 ml 395 ml 0 ml 825 ml Balance 139 ml 109 ml 321 ml 12 ml Intake Oral 10 ml 470 ml IV Total 439 ml 504 ml 311 ml 367 ml Output Urine Total 300 ml 395 ml 0 ml 825 ml # Voids 2 # Bowel Movements 1 0 1 Physical Exam GENERAL: Well developed, well nourished. No acute distress. HEENT: Jugular venous pressure is normal. CHEST: Lungs decreased and clear to auscultation bilaterally. Unlabored respiratory effort. CARDIAC:irregular rate and rhythm without S3, S4, or murmur. ABDOMEN: Soft, nontender, no hepatosplenomegaly. Bowel sounds present. EXTREMITIES: No clubbing, cyanosis, tr-1+ edema. Laboratory Laboratory Tests Test 12/17/16 12/17/16 03:51 08:30 Prothrombin Time 24.3 SEC Prothromb Time International 2.1 RATIO Ratio White Blood Count 4.9 TH/MM3 Red Blood Count 4.97 MIL/MM3 Hemoglobin 16.2 GM/DL Hematocrit 48.7 % Mean Corpuscular Volume 98.0 FL Mean Corpuscular Hemoglobin 32.6 PG Mean Corpuscular Hemoglobin 33.3 % Concent Red Cell Distribution Width 16.2 % Platelet Count 64 TH/MM3 Mean Platelet Volume 11.0 FL Imaging Last 72 hours Impressions Chest X-Ray 12/15/16 0000 Signed Impressions: Service Date/Time: Thursday, December 15, 2016 03:14 - CONCLUSION: Worsening appearance of the chest. 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
[2016-12-17] MEDS: METOPROLOL TARTRATE 5 MG/5 ML VIAL IV PUSH PRN ×3 (10:37→21:49)
[2016-12-17] MEDS ORDERED: METOPROLOL TARTRATE 50 MG TAB PO ONE (11:45)
[2016-12-17] MEDS ORDERED: DIGOXIN 0.5 MG/2 ML VIAL IV PUSH ONE (11:45)
[2016-12-17 15:06] LABS: ALKALINE PHOSPHATASE 67 U/L (45-117); ALT (GPT) 462 U/L (12-78); ANION GAP 13 MEQ/L (5-15); AST (GOT) 519 U/L (15-37); BICARBONATE 25.6 MEQ/L (21.0-32.0); BLOOD UREA NITROGEN 28 MG/DL (7-18); CHLORIDE 103 MEQ/L (98-107); CREATINE KINASE 893 U/L (39-308); GLOMERULAR FILTRATION RATE 32 ML/MIN (>89); HDL CHOLESTEROL 19.6 MG/DL (40.0-60.0); LDL CHOLESTEROL 24 MG/DL (0-99); MAGNESIUM 1.9 MG/DL (1.5-2.5); POTASSIUM 4.1 MEQ/L (3.5-5.1); SODIUM (NA) 142 MEQ/L (136-145); TOTAL BILIRUBIN ADULT 2.5 MG/DL (0.2-1.0)
[2016-12-17 15:38] LABS: CKMB 27.1 NG/ML (0.5-3.6)
[2016-12-18] VITALS (26 sets, daily range): BP systolic 119–142; BP diastolic 88–111; PULSE 86–120; RESP 16–20; TEMP 97.6–98.5; O2SAT 93–98
[2016-12-18] MEDS: CHLORHEXIDINE GLUCONATE 2 % 1 PACK (2 CLOTHS) TOP SCH (00:35)
[2016-12-18] MEDS: RESP: ALBUTEROL 2.5 MG/IPRATROPIUM 0.5 MG NEB (SCH) NEB ×4 (04:39→22:04)
--- NOTE | 2016-12-18 07:24 | PD.CARD.PN ---
Subjective Subjective Remarks Pt reports feeling better Objective Medications Current Medications Medications (Trade) Dose Ordered Sig/Lizzie Route Start Time Stop Time Status Last Admin (NS Flush) 2 ml UNSCH PRN IV FLUSH 12/12/16 18:15 12/17/16 21:49 (NS Flush) 2 ml BID IV FLUSH 12/12/16 21:00 12/17/16 09:50 (Tylenol) 650 mg Q6H PRN PO 12/12/16 18:15 ([place] 5-325 Mg) 1 tab Q4H PRN PO 12/12/16 18:15 12/17/16 23:17 (Morphine Inj) 2 mg Q2H PRN IV 12/12/16 18:15 (Zofran Inj) 4 mg Q6H PRN IV 12/12/16 18:15 12/17/16 23:17 (Colace) 100 mg BID PO 12/12/16 21:00 12/17/16 19:54 (Senokot) 17.2 mg Q12H PRN PO 12/12/16 18:15 12/15/16 01:14 Miscellaneous Information 1 Q361D XX 12/12/16 18:15 (Chlorhexidine 2% Cloth) Taper DAILY@04 TOP 12/13/16 04:00 12/09/17 03:59 12/15/16 21:46 (Chlorhexidine 2% Cloth) 3 pack UNSCH PRN TOP 12/12/16 18:15 (Protonix) 40 mg DAILY PO 12/13/16 09:00 12/17/16 09:49 (Vitamin B1) 100 mg DAILY PO 12/13/16 09:00 12/17/16 09:50 (Folate) 1 mg DAILY PO 12/13/16 09:00 12/17/16 09:49 (Theragran) 1 tab DAILY PO 12/13/16 09:00 12/17/16 09:50 (Lopressor Inj) 5 mg Q2HR PRN IV PUSH 12/13/16 10:45 12/17/16 21:49 (Lasix) 40 mg BID@,18 PO 12/16/16 09:00 12/17/16 18:31 (KCl) 20 meq Q12HR PO 12/16/16 09:00 12/17/16 19:54 (Restoril) 7.5 mg HS PRN PO 12/16/16 11:45 (Lopressor) 200 mg Q12HR PO 12/17/16 21:00 12/17/16 19:54 (Lanoxin) 0.125 mg DAILY PO 12/18/16 09:00 Vital Signs / I&O Vital Signs Date Time Temp Pulse Resp B/P Pulse Ox O2 Delivery O2 Flow Rate FiO2 12/18/16 06:00 105 12/18/16 05:00 103 12/18/16 04:00 Room Air 12/18/16 04:00 97.6 108 20 140/89 93 12/18/16 04:00 99 12/18/16 03:00 97 12/18/16 02:00 97 12/18/16 01:00 99 12/18/16 00:17 20 12/18/16 00:00 101 12/18/16 00:00 98.4 104 20 120/97 93 12/18/16 00:00 Room Air 12/17/16 23:00 124 12/17/16 21:37 109 12/17/16 21:20 97.7 114 20 93 12/17/16 21:20 Room Air 12/17/16 21:20 124/94 12/17/16 21:01 90 21 12/17/16 18:00 100 12/17/16 16:00 117 12/17/16 16:00 98.3 115 18 124/82 93 12/17/16 14:00 110 12/17/16 12:00 102 12/17/16 12:00 98.1 125 18 123/99 93 12/17/16 10:00 122 12/17/16 09:25 98 12/17/16 08:00 114 12/17/16 08:00 98.2 122 18 101/77 92 I/O 12/17/16 12/17/16 12/17/16 12/18/16 12/18/16 12/18/16 07:00 15:00 23:00 07:00 15:00 23:00 Intake Total 837 ml 200 ml 800 ml Output Total 825 ml 600 ml 1800 ml Balance 12 ml -400 ml -1000 ml Intake Oral 470 ml 800 ml IV Total 367 ml 200 ml Output Urine Total 825 ml 600 ml 1800 ml # Bowel Movements 1 0 Physical Exam GENERAL: Well developed, well nourished. No acute distress. HEENT: Jugular venous pressure is normal. CHEST: Lungs decreased and clear to auscultation bilaterally. Unlabored respiratory effort. CARDIAC:irregular rate and rhythm without S3, S4, or murmur. ABDOMEN: Soft, nontender, no hepatosplenomegaly. Bowel sounds present. EXTREMITIES: No clubbing, cyanosis, 2+ edema. Laboratory Laboratory Tests Test 12/17/16 12/17/16 08:30 13:49 White Blood Count 4.9 TH/MM3 Red Blood Count 4.97 MIL/MM3 Hemoglobin 16.2 GM/DL Hematocrit 48.7 % Mean Corpuscular Volume 98.0 FL Mean Corpuscular Hemoglobin 32.6 PG Mean Corpuscular Hemoglobin 33.3 % Concent Red Cell Distribution Width 16.2 % Platelet Count 64 TH/MM3 Mean Platelet Volume 11.0 FL Sodium Level 142 MEQ/L Potassium Level 4.1 MEQ/L Chloride Level 103 MEQ/L Carbon Dioxide Level 25.6 MEQ/L Anion Gap 13 MEQ/L Blood Urea Nitrogen 28 MG/DL Creatinine 2.05 MG/DL Estimat Glomerular Filtration 32 ML/MIN Rate Random Glucose 114 MG/DL Calcium Level 8.2 MG/DL Phosphorus Level 3.5 MG/DL Magnesium Level 1.9 MG/DL Total Bilirubin 2.5 MG/DL Aspartate Amino Transf 519 U/L (AST/SGOT) Alanine Aminotransferase 462 U/L (ALT/SGPT) Alkaline Phosphatase 67 U/L Total Creatine Kinase 893 U/L Creatine Kinase MB 27.1 NG/ML Creatine Kinase MB % 3.0 % Total Protein 5.4 GM/DL Albumin 2.6 GM/DL Triglycerides Level 79 MG/DL Cholesterol Level 59 MG/DL LDL Cholesterol 24 MG/DL HDL Cholesterol 19.6 MG/DL Cholesterol/HDL Ratio 3.01 RATIO Thyroid Stimulating Hormone 2.590 uIU/ML 3rd Gen Assessment and Plan Problem List: (1) Atrial fibrillation with rapid ventricular response Assessment and Plan: fair rate control on metoprolol 200 bid; target HR 90-110 with his low EF (2) Cardiomyopathy Assessment and Plan: EF 15% by ECHO, likely secondary to ETOH and AF RVR on BB, no ANJELICA secondary to CKD -no change (3) CHF exacerbation Assessment and Plan: slow improvement (4) Chronic systolic CHF (congestive heart failure) (5) PONCE (acute kidney injury) (6) Thrombocytopenia Problem Qualifiers (1) Cardiomyopathy: Qualified Code: I42.6 - Alcoholic cardiomyopathy (2) CHF exacerbation: Qualified Code: I50.23 - Acute on chronic systolic congestive heart failure Renée Qureshi MD Dec 18, 2016 07:24
[2016-12-18 07:48] LABS: ALKALINE PHOSPHATASE 65 U/L (45-117); ALT (GPT) 412 U/L (12-78); ANION GAP 10 MEQ/L (5-15); AST (GOT) 369 U/L (15-37); BICARBONATE 32.6 MEQ/L (21.0-32.0); BLOOD UREA NITROGEN 28 MG/DL (7-18); CHLORIDE 100 MEQ/L (98-107); CREATINE KINASE 814 U/L (39-308); GLOMERULAR FILTRATION RATE 35 ML/MIN (>89); POTASSIUM 3.5 MEQ/L (3.5-5.1); SODIUM (NA) 143 MEQ/L (136-145); TOTAL BILIRUBIN ADULT 2.4 MG/DL (0.2-1.0)
[2016-12-18 08:07] LABS: CKMB 25.5 NG/ML (0.5-3.6)
--- NOTE | 2016-12-18 08:50 | HHI.PR ---
Subjective Remarks resting comfortably with no distress. denies chest pain or dizziness. no new complaints. Objective Vitals Vital Signs Date Time Temp Pulse Resp B/P Pulse Ox O2 Delivery O2 Flow Rate FiO2 12/18/16 08:00 98.4 96 18 119/88 96 12/18/16 07:49 Room Air 12/18/16 06:00 105 12/18/16 05:00 103 12/18/16 04:00 Room Air 12/18/16 04:00 97.6 108 20 140/89 93 12/18/16 04:00 99 12/18/16 03:00 97 12/18/16 02:00 97 12/18/16 01:00 99 12/18/16 00:17 20 12/18/16 00:00 101 12/18/16 00:00 98.4 104 20 120/97 93 12/18/16 00:00 Room Air 12/17/16 23:00 124 12/17/16 21:37 109 12/17/16 21:20 97.7 114 20 93 12/17/16 21:20 Room Air 12/17/16 21:20 124/94 12/17/16 21:01 90 21 12/17/16 18:00 100 12/17/16 16:00 117 12/17/16 16:00 98.3 115 18 124/82 93 12/17/16 14:00 110 12/17/16 12:00 102 12/17/16 12:00 98.1 125 18 123/99 93 12/17/16 10:00 122 12/17/16 09:25 98 I/O 12/17/16 12/17/16 12/17/16 12/18/16 12/18/16 12/18/16 07:00 15:00 23:00 07:00 15:00 23:00 Intake Total 837 ml 200 ml 800 ml Output Total 825 ml 600 ml 1800 ml Balance 12 ml -400 ml -1000 ml Intake Oral 470 ml 800 ml IV Total 367 ml 200 ml Output Urine Total 825 ml 600 ml 1800 ml # Bowel Movements 1 0 Result Diagram: 12/17/16 0830 12/18/16 0635 Imaging Last Impressions Chest X-Ray 12/15/16 0000 Signed Impressions: Service Date/Time: Thursday, December 15, 2016 03:14 - CONCLUSION: Worsening appearance of the chest. Nito Rodríguez MD Abdomen Ultrasound 12/13/16 0000 Signed Impressions: Service Date/Time: Tuesday, December 13, 2016 15:26 - CONCLUSION: There is not enough ascites for safe paracentesis. Reji Rivera MD FACR Liver Ultrasound 12/12/16 0000 Signed Impressions: Service Date/Time: November 20:18 - CONCLUSION: Ascites. Hepatic venocongestion. Keven Hamilton MD Abdomen/Pelvis CT 12/12/16 0000 Signed Impressions: Service Date/Time: November 18:22 - CONCLUSION: Cardiomegaly and small pleural effusions. Ascites in the abdomen. No acute focal findings. Keven Hamilton MD Objective Remarks GENERAL: This is a well-nourished, well-developed patient, in no apparent distress. CARDIOVASCULAR: tachycardic with irregular rhythm without murmurs, gallops, or rubs. RESPIRATORY: Clear to auscultation. Breath sounds equal bilaterally. No wheezes , rales, or rhonchi. GASTROINTESTINAL: Abdomen soft, non-tender, nondistended. Normal, active bowel sounds MUSCULOSKELETAL: Extremities with bilateral pedal edema. NEURO: Alert & Oriented x4 to person, place, time, situation. Moves all ext x4 Procedures none Medications and IVs Current Medications Metoprolol Succinate (Toprol Xl) 50 mg ONCE ONCE PO Last administered on 15:59; Start 12/12/16 at 16:00; Stop 12/12/16 at 16:01; Status DC Diltiazem HCl 25 mg 25 mg ONCE ONCE IV Last administered on 12/12/16 16:34; Start 12/12/16 at 16:30; Stop 12/12/16 at 16:31; Status DC Sodium Chloride (NS 500 ml Inj) 500 ml @ 500 mls/hr BOLUS ONCE IV ; Start at 16:30; Stop 12/12/16 at 16:37; Status DC Potassium Chloride (KCl) 40 meq ONCE ONCE PO Last administered on 12/12/16 16 :41; Start 12/12/16 at 16:30; Stop 12/12/16 at 16:31; Status DC Furosemide (Lasix Inj) 40 mg ONCE ONCE IV PUSH Last administered on 12/12/16 16:59; Start 12/12/16 at 17:00; Stop 12/12/16 at 17:01; Status DC Metoprolol Tartrate (Lopressor Inj) 2.5 mg ONCE STAT IV PUSH Last administered on 12/12/16 17:50; Start 12/12/16 at 17:44; Stop 12/12/16 at 17:45 ; Status DC IV Flush (NS Flush) 2 ml UNSCH PRN IV FLUSH FLUSH AFTER USING IV ACCESS Last administered on 12/17/16 21:49; Start 12/12/16 at 18:15 IV Flush (NS Flush) 2 ml BID IV FLUSH Last administered on 12/17/16 09:50; Start 12/12/16 at 21:00 Acetaminophen (Tylenol) 650 mg Q6H PRN PO FEVER >101F; Start 12/12/16 at 18:15 Acetaminophen/ Hydrocodone Bitart ([place]ennis 5-325 Mg) 1 tab Q4H PRN PO PAIN SCALE 1 TO 5 Last administered on 12/17/16 23:17; Start 12/12/16 at 18:15 Morphine Sulfate (Morphine Inj) 2 mg Q2H PRN IV PAIN SCALE 6 TO 10; Start 12/12 at 18:15 Ondansetron HCl (Zofran Inj) 4 mg Q6H PRN IV NAUSEA OR VOMITING Last administered on 12/17/16 23:17; Start 12/12/16 at 18:15 Docusate Sodium (Colace) 100 mg BID PO Last administered on 12/17/16 19:54; Start 12/12/16 at 21:00 Sennosides (Senokot) 17.2 mg Q12H PRN PO CONSTIPATION Last administered on 12/15 01:14; Start 12/12/16 at 18:15 Albuterol/ Ipratropium (Duoneb Neb) 1 ampule Q2HR NEB PRN INH WHEEZING; Start 12/12/16 at 18:15 Miscellaneous Information 1 Q361D XX ; Start 12/12/16 at 18:15 Chlorhexidine Gluconate (Chlorhexidine 2% Cloth) Taper DAILY@04 TOP Last administered on 12/15/16 21:46; Start 12/13/16 at 04:00; Stop 12/09/17 at 03:59 Chlorhexidine Gluconate (Chlorhexidine 2% Cloth) 3 pack UNSCH PRN TOP HYGIENIC CARE; Start 12/12/16 at 18:15 Metoprolol Tartrate (Lopressor Inj) 2.5 mg Q6H IV PUSH Last administered on 04:31; Start 12/12/16 at 22:00; Stop 12/13/16 at 10:42; Status DC Pantoprazole Sodium (Protonix) 40 mg DAILY PO Last administered on 12/17/16 09 :49; Start 12/13/16 at 09:00 Multivitamins 1 tab 1 tab DAILY PO ; Start 12/13/16 at 09:00; Stop 12/13/16 at 09:00; Status DC Thiamine HCl/ Sodium Chloride (Thiamine Inj/NS Inj) 101 ml @ 101 mls/hr DAILY IV ; Start 12/13/16 at 09:00; Stop 12/13/16 at 09:00; Status DC Folic Acid (Folate) 1 mg DAILY PO ; Start 12/13/16 at 09:00; Stop 12/13/16 at 09 :00; Status DC Metoprolol Tartrate 5 mg 5 mg Q5M IV PUSH Last administered on 12/12/16 23:25 ; Start 12/12/16 at 22:40; Stop 12/12/16 at 22:51; Status DC Sodium Chloride 1,000 ml @ 999 mls/hr BOLUS ONCE IV Last administered on 12/12 23:25; Start 12/12/16 at 22:45; Stop 12/12/16 at 23:45; Status DC Sodium Chloride (NS 1000 ml Inj) 1,000 ml @ 999 mls/hr BOLUS ONCE IV Last administered on 12/13/16 00:53; Start 12/12/16 at 22:45; Stop 12/12/16 at 23:45 ; Status DC Chlordiazepoxide 50 mg 50 mg ONCE PO Last administered on 12/12/16 22:58; Start 12/12/16 at 22:45; Stop 12/13/16 at 01:00; Status DC Sodium Chloride (NS 1000 ml Inj) 1,000 ml @ 50 mls/hr Q20H IV Last administered on 12/15/16 01:19; Start 12/12/16 at 23:45; Stop 12/15/16 at 12:55 ; Status DC Thiamine HCl (Vitamin B1) 100 mg DAILY PO Last administered on 12/17/16 09:50 ; Start 12/13/16 at 09:00 Folic Acid (Folate) 1 mg DAILY PO Last administered on 12/17/16 09:49; Start 12/13/16 at 09:00 Multivitamins (Theragran) 1 tab DAILY PO Last administered on 12/17/16 09:50; Start 12/13/16 at 09:00 Enoxaparin Sodium (Lovenox Inj) 100 mg Q24H SQ Last administered on 12/13/16 00:54; Start 12/13/16 at 01:00; Stop 12/13/16 at 10:39; Status DC Digoxin 0.25 mg 0.25 mg NOW ONCE IV PUSH Last administered on 12/13/16 00:53 ; Start 12/13/16 at 01:00; Stop 12/13/16 at 01:01; Status DC Amiodarone HCl 150 mg/Dextrose 100 ml @ 600 mls/hr ONCE ONCE IV Last administered on 12/13/16 02:28; Start 12/13/16 at 02:00; Stop 12/13/16 at 10:39 ; Status DC Amiodarone HCl/ Dextrose (Cordarone Inj/ D5W ([place]) Inj) 250 ml @ 0 mls/hr CONTINUOUS IV Last administered on 12/13/16 02:28; Start 12/13/16 at 02:00; Stop 12/13/16 at 10:39; Status DC Metoprolol Tartrate (Lopressor) 100 mg Q12H PO ; Start 12/13/16 at 08:00; Stop 12/13/16 at 08:00; Status DC Metoprolol Tartrate (Lopressor) 50 mg Q12HR PO Last administered on 12/13/16 08:25; Start 12/13/16 at 09:00; Stop 12/13/16 at 10:39; Status DC Metoprolol Tartrate (Lopressor) 100 mg Q12H PO Last administered on 12/15/16 21:46; Start 12/13/16 at 21:00; Stop 12/16/16 at 07:47; Status DC Metoprolol Tartrate (Lopressor) 50 mg ONCE ONCE PO Last administered on 11:09; Start 12/13/16 at 10:45; Stop 12/13/16 at 10:47; Status DC Metoprolol Tartrate 5 mg 5 mg Q2HR PRN IV PUSH RAPID HEART RATE Last administered on 12/17/16 21:49; Start 12/13/16 at 10:45 Piperacillin Sod/ Tazobactam Sod 50 ml @ 100 mls/hr Q8H IV Last administered on 12/16/16 06:12; Start 12/13/16 at 13:00; Stop 12/16/16 at 11:43; Status DC Potassium Chloride 100 ml @ 50 mls/hr Q2H IV Last administered on 12/14/16 10 :00; Start 12/14/16 at 08:00; Stop 12/14/16 at 11:59; Status DC Potassium Chloride 100 ml @ 50 mls/hr ONCE ONCE IV Last administered on 22:02; Start 12/14/16 at 21:15; Stop 12/14/16 at 23:14; Status DC Potassium Chloride 100 ml @ 50 mls/hr Q2H IV Last administered on 12/15/16 15 :10; Start 12/15/16 at 04:30; Stop 12/15/16 at 10:29; Status DC Magnesium Sulfate/ Dextrose (Magnesium Sulfate 1 Gm Premix) 100 ml @ 100 mls/ hr Q1H IV Last administered on 12/15/16 15:10; Start 12/15/16 at 08:30; Stop 12/15/16 at 10:29; Status DC Potassium Chloride (KCl) 30 meq ONCE ONCE PO Last administered on 12/15/16 10 :18; Start 12/15/16 at 08:30; Stop 12/15/16 at 08:48; Status DC Diltiazem HCl (Cardizem Inj) 25 mg STK-MED ONCE .ROUTE ; Start 12/15/16 at 12:01 ; Stop 12/15/16 at 12:56; Status DC Furosemide (Lasix Inj) 40 mg ONCE ONCE IV PUSH Last administered on 12/15/16 13:47; Start 12/15/16 at 13:00; Stop 12/15/16 at 13:01; Status DC Albuterol/ Ipratropium (Duoneb Neb) 1 ampule Q6HR NEB NEB Last administered on 12/18/16 04:39; Start 12/15/16 at 16:00 Metoprolol Tartrate (Lopressor) 150 mg Q12HR PO Last administered on 12/17/16 09:50; Start 12/16/16 at 09:00; Stop 12/17/16 at 11:44; Status DC Furosemide (Lasix) 40 mg BID@,18 PO Last administered on 12/17/16 18:31; Start 12/16/16 at 09:00 Potassium Chloride (KCl) 20 meq Q12HR PO Last administered on 12/17/16 19:54; Start 12/16/16 at 09:00 Temazepam (Restoril) 7.5 mg HS PRN PO insomnia; Start 12/16/16 at 11:45 Potassium Chloride (KCl) 10 meq ONCE ONCE PO Last administered on 12/16/16 13 :27; Start 12/16/16 at 11:45; Stop 12/16/16 at 12:05; Status DC Metoprolol Tartrate (Lopressor) 200 mg Q12HR PO Last administered on 12/17/16 19:54; Start 12/17/16 at 21:00 Metoprolol Tartrate (Lopressor) 50 mg ONCE ONCE PO Last administered on 12:09; Start 12/17/16 at 11:45; Stop 12/17/16 at 11:48; Status DC Digoxin (Lanoxin) 0.125 mg DAILY PO ; Start 12/18/16 at 09:00 Digoxin (Lanoxin Inj) 0.5 mg ONCE ONCE IV PUSH Last administered on 12/17/16 12:09; Start 12/17/16 at 11:45; Stop 12/17/16 at 11:47; Status DC A/P Assessment and Plan A/P - atrial fibrillation with rapid ventricular response- still mildly tachycardic continue to monitor on telemetry- metoprolol was increased to 200 mg bid and started on digoxin. echo with EF 15%- cardiology following. -cardiomyopathy- continue BB , digoxin and diuretic- no ANJELICA-I due to renal insufficiency -renal insufficiency with unknown duration- renal function fairly stable- f/u as outpatient and this was d/w the patient -rhabdomyolysis- improving- -elevated LFT's/ coagulopathy/ thrombocytopenia; due to liver disease due to alcohol- will monitor- no evidence of bleeding- will consult GI as per the patient's request. -alcohol abuse; continue vitamin supplement- counselled on drinking cessation. for transfer to telemetry. Discharge Planning case management for [facility]. d/w the case management. possible dc home within the next 24-48 hrs if stable. Monie Mann MD Dec 18, 2016 08:50
[2016-12-18] MEDS: FOLIC ACID 1 MG TAB PO SCH (09:02)
[2016-12-18] MEDS: THIAMINE HCL 100 MG TAB PO SCH (09:02)
[2016-12-18] MEDS: METOPROLOL TARTRATE 100 MG TAB PO SCH ×2 (09:02→20:53)
[2016-12-18] MEDS: PANTOPRAZOLE SOD 40 MG DELAYED RELEASE TAB PO SCH (09:03)
[2016-12-18] MEDS: MULTIVITAMIN TAB PO SCH (09:03)
[2016-12-18] MEDS: FUROSEMIDE 40 MG TAB PO SCH ×2 (09:03→17:12)
[2016-12-18] MEDS: DIGOXIN 0.125 MG TAB PO SCH (09:03)
[2016-12-18] MEDS: POTASSIUM CHLORIDE 20 MEQ CONTROLLED RELEASE TAB PO SCH ×2 (09:03→20:53)
[2016-12-18] MEDS: SODIUM CHLORIDE 0.9% FLUSH 5 ML FLUSH IV FLUSH SCH ×2 (09:03→20:53)
[2016-12-18] MEDS: DOCUSATE SODIUM 100 MG CAP PO SCH ×2 (09:03→20:53)
--- NOTE | 2016-12-18 10:21 | PD.CONS ---
HPI History of Present Illness This is a 71 year old male patient who is currently in the hospital being treated for atrial fibrillation with rapid ventricular response, cardiomyopathy , CHF, renal insufficiency, rhabdomyolysis. He was noted to have elevated LFTs with coagulopathy and thrombocytopenia and GI has been consulted for further evaluation. He has elevated LFTs with T. Bili 2.4, AST 369, ALT 412, Alk PHosph 65, Platelets 64, PT 24.3, INR 2.1. The patient denies any known history of liver disease or cirrhosis. He does report that he drinks 6 beers per day, but has never been told that he has hepatitis, liver dz, or liver cirrhosis. He reports that he was having some decreased appetite with nausea/ vomiting and insomnia back in September. He denies any weight loss. This improved in early October, but then returned towards the end of October, early November. He was seen by his PCP and was started on Omeprazole 20mg po daily and a sleeping pill. He states that this did not help and therefore when he went back for follow up, his omeprazole was increased to BID dosing and he was referred to GI, but has not been seen yet. He does not know who he was referred to. He states that he continued to have decreased appetite and intermittent nausea/vomiting with dry heaving up until this admission. He does state that this has been better over the past few days. He denies any vomiting , abdominal pain, diarrhea, constipation, or hematochezia. He does report that his stools have been dark, but denies any black stools. He does occasionally take Ibuprofen. He denies any hx of PUD. He had a colonoscopy about 6 years ago and had a few polyps removed. (Mira Veloz) PFSH Past Medical History HTN Hyperlipidemia Depression Chronic atrial fibrillation Insomnia GERD Liver disease Colon polyps Past Surgical History Colonoscopy (Mira Veloz) Coded Allergies: No Known Allergies (Unverified , 12/12/16) Medications Allergies Coded Allergies Type Severity Reaction Last Updated Verified No Known Allergies 12/12/16 No Active Scripts Medications Dose Route/Sig Days Date Category Temazepam 15 Mg Cap 15 Mg PO HS PRN 12/12/16 Reported Omeprazole 20 Mg Tab 20 Mg PO DAILY 12/12/16 Reported [Vitamin B1] 12/12/16 Reported Lexapro (Escitalopram Oxalate) 5 Mg Tab 5 Mg PO DAILY 12/10/16 Reported Atorvastatin (Atorvastatin Calcium) 10 Mg Tab 10 Mg PO HS 12/10/16 Reported Theragran-M (Multiple Vitamins W/ Minerals) 1 Tab 1 Tab PO DAILY 09/26/16 Reported Prinivil (Lisinopril) 10 Mg Tab 10 Mg PO DAILY 09/26/16 Reported Metoprolol Tartrate 100 Mg Tab 100 Mg PO BID 09/26/16 Reported Calcium 500 +D (Calcium Carbonate-Cholecalciferol) 500-400 Mg-Unit Tab 1 Tab PO DAILY 09/26/16 Reported Aspirin 325 Mg Tab 325 Mg PO DAILY 09/26/16 Reported Family History Noncontributory Social History No tobacco 6 beers per day (Mira Veloz) Review of Systems Constitutional: COMPLAINS OF: Fatigue, Change in appetite, DENIES: Weight gain , Weight loss Respiratory: DENIES: Cough Cardiovascular: DENIES: Chest pain Gastrointestinal: COMPLAINS OF: Black stools (possible dark stool), Nausea, Vomiting (dry heaving), Anorexia, DENIES: Abdominal pain, Bloody stools, Constipation, Diarrhea, Difficulty Swallowing, Odynophagia, Swelling of Abdomen , Heartburn, Hematemesis Musculoskeletal: DENIES: Joint pain Integumentary: DENIES: Abnormal pigmentation Hematologic/lymphatic: DENIES: Bruising Neurologic: DENIES: Headache Psychiatric: DENIES: Confusion (Mira Veloz) GI Exam Vitals I&O Vital Signs Date Time Temp Pulse Resp B/P Pulse Ox O2 Delivery O2 Flow Rate FiO2 12/18/16 09:44 97 21 12/18/16 08:00 102 12/18/16 08:00 98.4 96 18 119/88 96 12/18/16 07:49 Room Air 12/18/16 06:00 105 12/18/16 05:00 103 12/18/16 04:00 Room Air 12/18/16 04:00 97.6 108 20 140/89 93 12/18/16 04:00 99 12/18/16 03:00 97 12/18/16 02:00 97 12/18/16 01:00 99 12/18/16 00:17 20 12/18/16 00:00 101 12/18/16 00:00 98.4 104 20 120/97 93 12/18/16 00:00 Room Air 12/17/16 23:00 124 12/17/16 21:37 109 12/17/16 21:20 97.7 114 20 93 12/17/16 21:20 Room Air 12/17/16 21:20 124/94 12/17/16 21:01 90 21 12/17/16 18:00 100 12/17/16 16:00 117 12/17/16 16:00 98.3 115 18 124/82 93 12/17/16 14:00 110 12/17/16 12:00 102 12/17/16 12:00 98.1 125 18 123/99 93 I/O 12/17/16 12/17/16 12/17/16 12/18/16 12/18/16 12/18/16 07:00 15:00 23:00 07:00 15:00 23:00 Intake Total 837 ml 200 ml 800 ml Output Total 825 ml 600 ml 1800 ml Balance 12 ml -400 ml -1000 ml Intake Oral 470 ml 800 ml IV Total 367 ml 200 ml Output Urine Total 825 ml 600 ml 1800 ml # Bowel Movements 1 0 Imaging Last Impressions Chest X-Ray 12/15/16 0000 Signed Impressions: Service Date/Time: Thursday, December 15, 2016 03:14 - CONCLUSION: Worsening appearance of the chest. Nito Rodríguez MD Abdomen Ultrasound 12/13/16 0000 Signed Impressions: Service Date/Time: Tuesday, December 13, 2016 15:26 - CONCLUSION: There is not enough ascites for safe paracentesis. Reji Rivera MD FACR Liver Ultrasound 12/12/16 0000 Signed Impressions: Service Date/Time: November 20:18 - CONCLUSION: Ascites. Hepatic venocongestion. Keven Hamilton MD Abdomen/Pelvis CT 12/12/16 0000 Signed Impressions: Service Date/Time: November 18:22 - CONCLUSION: Cardiomegaly and small pleural effusions. Ascites in the abdomen. No acute focal findings. Keven Hamilton MD Laboratory Test 12/17/16 12/18/16 13:49 06:35 Sodium Level 142 MEQ/L 143 MEQ/L Potassium Level 4.1 MEQ/L 3.5 MEQ/L Chloride Level 103 MEQ/L 100 MEQ/L Carbon Dioxide Level 25.6 MEQ/L 32.6 MEQ/L Anion Gap 13 MEQ/L 10 MEQ/L Blood Urea Nitrogen 28 MG/DL 28 MG/DL Creatinine 2.05 MG/DL 1.91 MG/DL Estimat Glomerular Filtration 32 ML/MIN 35 ML/MIN Rate Random Glucose 114 MG/DL 78 MG/DL Calcium Level 8.2 MG/DL 8.5 MG/DL Phosphorus Level 3.5 MG/DL Magnesium Level 1.9 MG/DL Total Bilirubin 2.5 MG/DL 2.4 MG/DL Aspartate Amino Transf 519 U/L 369 U/L (AST/SGOT) Alanine Aminotransferase 462 U/L 412 U/L (ALT/SGPT) Alkaline Phosphatase 67 U/L 65 U/L Total Creatine Kinase 893 U/L 814 U/L Creatine Kinase MB 27.1 NG/ML 25.5 NG/ML Creatine Kinase MB % 3.0 % 3.1 % Total Protein 5.4 GM/DL 5.2 GM/DL Albumin 2.6 GM/DL 2.7 GM/DL Triglycerides Level 79 MG/DL Cholesterol Level 59 MG/DL LDL Cholesterol 24 MG/DL HDL Cholesterol 19.6 MG/DL Cholesterol/HDL Ratio 3.01 RATIO Thyroid Stimulating Hormone 2.590 uIU/ML 3rd Gen Physical Examination HEENT: Normocephalic; atraumatic; + jaundice. CHEST: CTA CARDIAC: Irregular ABDOMEN: Soft, nondistended, nontender; hepatosplenomegaly; bowel sounds are present in all four quadrants. EXTREMITIES:BLE edema. SKIN: Normal; no rash; +jaundice. BUSINESS SEGMENT MANAGER: No focal deficits; alert and oriented times three. (Mira Veloz) Assessment and Plan Plan ASSESSMENT: - Elevated LFTs. Pt also with coagulopathy, thrombocytopenia, and coagulopathy. Liver Ultrasound (12/12/16)-----> Ascites. Hepatic venocongestion. Abdomen/Pelvis CT (12/12/16)---> Cardiomegaly and small pleural effusions. Ascites in the abdomen. No acute focal findings. T. Bili 2.4, AST 369, ALT 412, Alk PHosph 65, Platelets 64, PT 24.3, INR 2.1. No known hx of liver dz/hepatitis/cirrhosis. Does have ongoing ETOH abuse, 6 beers per day and labs could be consistent with liver disease/cirrhosis. Hepatitis profile pending. Of note, does have some CHF also. Will order liver workup. Suspect liver disease r/t ETOH abuse. - Thrombocytopenia/Coagulopathy. Platelets 64, PT 24.3, INR 2.1, no active bleeding. - Decreased appetite, nausea, dry heaving. CT/US as above. Had colonoscopy with polypectomy 6 years ago at [place]. - Sleeping disturbances. Will check ammonia level. - Atrial fibrillation, CHF, Cardiomyopathy. Cardiology following. - Hyperlipidemia, RI, OA per primary PLAN: - Heart healthy diet - PPI - AFP - PASCALE, ASMA, AMA - Ceruloplasmin, Alpha 1 Antitrypsin - Ferritin, Iron Saturation - Monitor LFTs - Complete ETOH Cessation - EGD/Colonoscopy, timing to be determined, inpatient vs. outpatient - Supportive care - Further recommendations to follow based on results of above - Pt seen and examined by Dr. Buck and myself and this note is written on his behalf (Mira Veloz) Physician Comments Patient seen and examined Agree with above Continue with current supportive care Monitor labs We'll probably plan endoscopy prior to discharge possibly for Friday if all is stable (Aram Buck MD) Mira Veloz Dec 18, 2016 10:21 Aram Buck MD Dec 18, 2016 20:00
[2016-12-18] MEDS ORDERED: hydrALAZINE HCL 20 MG/ML VIAL IV PRN (16:45)
[2016-12-18 20:25] LABS: FERRITIN 732 NG/ML (26-388); TRANSFERRIN IRON PROFILE 246 MG/DL (200-360)
[2016-12-18] MEDS: ONDANSETRON HCL 4 MG/2 ML VIAL IV PRN (21:48)
[2016-12-18] MEDS: ACETAMINOPHEN/HYDROcodone 325 MG/5 MG TAB PO PRN (21:49)
[2016-12-19] VITALS (27 sets, daily range): BP systolic 96–140; BP diastolic 45–104; PULSE 83–118; RESP 16–20; TEMP 97.8–98.2; O2SAT 93–98
[2016-12-19] MEDS: CHLORHEXIDINE GLUCONATE 2 % 1 PACK (2 CLOTHS) TOP SCH (04:00)
[2016-12-19] MEDS: RESP: ALBUTEROL 2.5 MG/IPRATROPIUM 0.5 MG NEB (SCH) NEB ×3 (04:43→16:00)
--- NOTE | 2016-12-19 07:25 | PD.CARD.PN ---
Subjective Subjective Remarks Pt without complaints Objective Medications Current Medications Medications (Trade) Dose Ordered Sig/Lizzie Route Start Time Stop Time Status Last Admin (NS Flush) 2 ml UNSCH PRN IV FLUSH 12/12/16 18:15 12/17/16 21:49 (NS Flush) 2 ml BID IV FLUSH 12/12/16 21:00 12/18/16 20:53 (Tylenol) 650 mg Q6H PRN PO 12/12/16 18:15 ([place] 5-325 Mg) 1 tab Q4H PRN PO 12/12/16 18:15 12/18/16 21:49 (Morphine Inj) 2 mg Q2H PRN IV 12/12/16 18:15 (Zofran Inj) 4 mg Q6H PRN IV 12/12/16 18:15 12/18/16 21:48 (Colace) 100 mg BID PO 12/12/16 21:00 12/18/16 20:53 (Senokot) 17.2 mg Q12H PRN PO 12/12/16 18:15 12/15/16 01:14 Miscellaneous Information 1 Q361D XX 12/12/16 18:15 (Chlorhexidine 2% Cloth) Taper DAILY@04 TOP 12/13/16 04:00 12/09/17 03:59 12/15/16 21:46 (Chlorhexidine 2% Cloth) 3 pack UNSCH PRN TOP 12/12/16 18:15 (Protonix) 40 mg DAILY PO 12/13/16 09:00 12/18/16 09:03 (Vitamin B1) 100 mg DAILY PO 12/13/16 09:00 12/18/16 09:02 (Folate) 1 mg DAILY PO 12/13/16 09:00 12/18/16 09:02 (Theragran) 1 tab DAILY PO 12/13/16 09:00 12/18/16 09:03 (Lopressor Inj) 5 mg Q2HR PRN IV PUSH 12/13/16 10:45 12/17/16 21:49 (Lasix) 40 mg BID@,18 PO 12/16/16 09:00 12/18/16 17:12 (KCl) 20 meq Q12HR PO 12/16/16 09:00 12/18/16 20:53 (Restoril) 7.5 mg HS PRN PO 12/16/16 11:45 (Lopressor) 200 mg Q12HR PO 12/17/16 21:00 12/18/16 20:53 (Lanoxin) 0.125 mg DAILY PO 12/18/16 09:00 12/18/16 09:03 (Apresoline Inj) 10 mg Q8H PRN IV 12/18/16 16:45 12/19/16 00:15 Vital Signs / I&O Vital Signs Date Time Temp Pulse Resp B/P Pulse Ox O2 Delivery O2 Flow Rate FiO2 12/19/16 06:00 97 12/19/16 05:00 104 12/19/16 04:00 Room Air 12/19/16 04:00 98.0 86 20 134/88 93 12/19/16 04:00 99 12/19/16 03:00 109 12/19/16 02:00 117 12/19/16 01:00 115 12/19/16 01:00 138/74 12/19/16 00:10 98.1 98 18 142/106 97 128/104 12/19/16 00:10 Room Air 12/19/16 00:00 101 12/18/16 23:00 120 12/18/16 22:49 20 12/18/16 22:00 108 12/18/16 21:00 105 12/18/16 20:00 98.5 93 18 124/88 97 Automatic Cuff 12/18/16 20:00 Room Air 12/18/16 20:00 99 12/18/16 19:00 88 12/18/16 18:00 98 12/18/16 17:14 142/90 12/18/16 17:00 111 12/18/16 16:00 101 12/18/16 16:00 98.2 88 20 138/111 98 139/111 12/18/16 15:00 117 12/18/16 14:00 90 12/18/16 13:00 92 12/18/16 12:00 87 12/18/16 12:00 98.3 86 16 121/100 96 12/18/16 11:00 98 12/18/16 10:00 105 12/18/16 09:44 97 21 12/18/16 09:00 98 12/18/16 08:00 102 12/18/16 08:00 98.4 96 18 119/88 96 12/18/16 07:49 Room Air I/O 12/18/16 12/18/16 12/18/16 12/19/16 12/19/16 12/19/16 07:00 15:00 23:00 07:00 15:00 23:00 Intake Total 800 ml 600 ml 960 ml Output Total 1800 ml 800 ml Balance -1000 ml -200 ml 960 ml Intake Oral 800 ml 600 ml 960 ml Output Urine Total 1800 ml 800 ml # Voids 3 # Bowel Movements 0 1 0 Physical Exam GENERAL: Well developed, well nourished. No acute distress. HEENT: Jugular venous pressure is normal. CHEST: Lungs decreased and clear to auscultation bilaterally. Unlabored respiratory effort. CARDIAC:irregular rate and rhythm without S3, S4, or murmur. ABDOMEN: Soft, nontender, no hepatosplenomegaly. Bowel sounds present. EXTREMITIES: No clubbing, cyanosis, 2+ edema. Assessment and Plan Problem List: (1) Atrial fibrillation with rapid ventricular response Assessment and Plan: fair rate control on max metoprolol and digoxin =>add cardizem (2) Cardiomyopathy Assessment and Plan: EF 15% by ECHO, likely secondary to ETOH and AF RVR on BB, no ANJELICA secondary to CKD -no change (3) CHF exacerbation Assessment and Plan: reasonably stable (4) Chronic systolic CHF (congestive heart failure) (5) PONCE (acute kidney injury) (6) Thrombocytopenia Assessment and Plan GI-- reasonable for EGD/colonoscopy from CV perspective Problem Qualifiers (1) Cardiomyopathy: Qualified Code: I42.6 - Alcoholic cardiomyopathy (2) CHF exacerbation: Qualified Code: I50.23 - Acute on chronic systolic congestive heart failure Renée Qureshi MD Dec 19, 2016 07:25
[2016-12-19] MEDS: MULTIVITAMIN TAB PO SCH (08:45)
[2016-12-19] MEDS: METOPROLOL TARTRATE 100 MG TAB PO SCH ×2 (08:45→21:50)
[2016-12-19] MEDS: DIGOXIN 0.125 MG TAB PO SCH (08:46)
[2016-12-19] MEDS: DILTIAZEM-CD 120 MG CAP ER PO SCH (08:46)
[2016-12-19] MEDS: DOCUSATE SODIUM 100 MG CAP PO SCH ×2 (08:46→21:50)
[2016-12-19] MEDS: FUROSEMIDE 40 MG TAB PO SCH ×2 (08:46→16:38)
[2016-12-19] MEDS: FOLIC ACID 1 MG TAB PO SCH (08:46)
[2016-12-19] MEDS: SODIUM CHLORIDE 0.9% FLUSH 5 ML FLUSH IV FLUSH SCH ×2 (08:46→21:50)
[2016-12-19] MEDS: POTASSIUM CHLORIDE 20 MEQ CONTROLLED RELEASE TAB PO SCH ×2 (08:46→21:49)
[2016-12-19] MEDS: PANTOPRAZOLE SOD 40 MG DELAYED RELEASE TAB PO SCH (08:46)
[2016-12-19] MEDS: THIAMINE HCL 100 MG TAB PO SCH (08:46)
--- NOTE | 2016-12-19 09:27 | HHI.PR ---
Subjective Remarks in no distress. denies chest pain, sob. HR fairly controlled. no new complaints. Objective Vitals Vital Signs Date Time Temp Pulse Resp B/P Pulse Ox O2 Delivery O2 Flow Rate FiO2 12/19/16 08:30 95 21 12/19/16 07:42 Room Air 21 12/19/16 06:00 97 12/19/16 05:00 104 12/19/16 04:00 Room Air 12/19/16 04:00 98.0 86 20 134/88 93 12/19/16 04:00 99 12/19/16 03:00 109 12/19/16 02:00 117 12/19/16 01:00 115 12/19/16 01:00 138/74 12/19/16 00:10 98.1 98 18 142/106 97 128/104 12/19/16 00:10 Room Air 12/19/16 00:00 101 12/18/16 23:00 120 12/18/16 22:49 20 12/18/16 22:00 108 12/18/16 21:00 105 12/18/16 20:00 98.5 93 18 124/88 97 Automatic Cuff 12/18/16 20:00 Room Air 12/18/16 20:00 99 12/18/16 19:00 88 12/18/16 18:00 98 12/18/16 17:14 142/90 12/18/16 17:00 111 12/18/16 16:00 101 12/18/16 16:00 98.2 88 20 138/111 98 139/111 12/18/16 15:00 117 12/18/16 14:00 90 12/18/16 13:00 92 12/18/16 12:00 87 12/18/16 12:00 98.3 86 16 121/100 96 12/18/16 11:00 98 12/18/16 10:00 105 12/18/16 09:44 97 21 I/O 12/18/16 12/18/16 12/18/16 12/19/16 12/19/16 12/19/16 07:00 15:00 23:00 07:00 15:00 23:00 Intake Total 800 ml 600 ml 960 ml Output Total 1800 ml 800 ml Balance -1000 ml -200 ml 960 ml Intake Oral 800 ml 600 ml 960 ml Output Urine Total 1800 ml 800 ml # Voids 3 # Bowel Movements 0 1 0 Result Diagram: 12/17/16 0830 12/18/16 0635 Imaging Last Impressions Chest X-Ray 12/15/16 0000 Signed Impressions: Service Date/Time: Thursday, December 15, 2016 03:14 - CONCLUSION: Worsening appearance of the chest. Nito Rodríguez MD Abdomen Ultrasound 12/13/16 0000 Signed Impressions: Service Date/Time: Tuesday, December 13, 2016 15:26 - CONCLUSION: There is not enough ascites for safe paracentesis. Reji Rivera MD FACR Liver Ultrasound 12/12/16 0000 Signed Impressions: Service Date/Time: November 20:18 - CONCLUSION: Ascites. Hepatic venocongestion. Keven Hamilton MD Abdomen/Pelvis CT 12/12/16 0000 Signed Impressions: Service Date/Time: , December 12, 2016 18:22 - CONCLUSION: Cardiomegaly and small pleural effusions. Ascites in the abdomen. No acute focal findings. Keven Hamilton MD Objective Remarks GENERAL: This is a well-nourished, well-developed patient, in no apparent distress. CARDIOVASCULAR: tachycardic with irregular rhythm without murmurs, gallops, or rubs. RESPIRATORY: Clear to auscultation. Breath sounds equal bilaterally. No wheezes , rales, or rhonchi. GASTROINTESTINAL: Abdomen soft, non-tender, nondistended. Normal, active bowel sounds MUSCULOSKELETAL: Extremities with bilateral pedal edema. NEURO: Alert & Oriented x4 to person, place, time, situation. Moves all ext x4 Procedures none Medications and IVs Current Medications Metoprolol Succinate (Toprol Xl) 50 mg ONCE ONCE PO Last administered on 15:59; Start 12/12/16 at 16:00; Stop 12/12/16 at 16:01; Status DC Diltiazem HCl 25 mg 25 mg ONCE ONCE IV Last administered on 12/12/16t 16:34; Start 12/12/16 at 16:30; Stop 12/12/16 at 16:31; Status DC Sodium Chloride (NS 500 ml Inj) 500 ml @ 500 mls/hr BOLUS ONCE IV ; Start at 16:30; Stop 12/12/16 at 16:37; Status DC Potassium Chloride (KCl) 40 meq ONCE ONCE PO Last administered on 12/12/16 16 :41; Start 12/12/16 at 16:30; Stop 12/12/16 at 16:31; Status DC Furosemide (Lasix Inj) 40 mg ONCE ONCE IV PUSH Last administered on 12/12/16 16:59; Start 12/12/16 at 17:00; Stop 12/12/16 at 17:01; Status DC Metoprolol Tartrate (Lopressor Inj) 2.5 mg ONCE STAT IV PUSH Last administered on 12/12/16 17:50; Start 12/12/16 at 17:44; Stop 12/12/16 at 17:45 ; Status DC IV Flush (NS Flush) 2 ml UNSCH PRN IV FLUSH FLUSH AFTER USING IV ACCESS Last administered on 12/17/16 21:49; Start 12/12/16 at 18:15 IV Flush (NS Flush) 2 ml BID IV FLUSH Last administered on 12/19/16 08:46; Start 12/12/16 at 21:00 Acetaminophen (Tylenol) 650 mg Q6H PRN PO FEVER >101F; Start 12/12/16 at 18:15 Acetaminophen/ Hydrocodone Bitart (Stella 5-325 Mg) 1 tab Q4H PRN PO PAIN SCALE 1 TO 5 Last administered on 12/18/16 21:49; Start 12/12/16 at 18:15 Morphine Sulfate (Morphine Inj) 2 mg Q2H PRN IV PAIN SCALE 6 TO 10; Start 12/12 at 18:15 Ondansetron HCl (Zofran Inj) 4 mg Q6H PRN IV NAUSEA OR VOMITING Last administered on 12/18/16 21:48; Start 12/12/16 at 18:15 Docusate Sodium (Colace) 100 mg BID PO Last administered on 12/19/16 08:46; Start 12/12/16 at 21:00 Sennosides (Senokot) 17.2 mg Q12H PRN PO CONSTIPATION Last administered on 12/15 01:14; Start 12/12/16 at 18:15 Albuterol/ Ipratropium (Duoneb Neb) 1 ampule Q2HR NEB PRN INH WHEEZING; Start 12/12/16 at 18:15 Miscellaneous Information 1 [id number] XX ; Start 12/12/16 at 18:15 Chlorhexidine Gluconate (Chlorhexidine 2% Cloth) Taper DAILY@04 TOP Last administered on 12/15/16 21:46; Start 12/13/16 at 04:00; Stop 12/09/17 at 03:59 Chlorhexidine Gluconate (Chlorhexidine 2% Cloth) 3 pack UNSCH PRN TOP HYGIENIC CARE; Start 12/12/16 at 18:15 Metoprolol Tartrate (Lopressor Inj) 2.5 mg Q6H IV PUSH Last administered on 04:31; Start 12/12/16 at 22:00; Stop 12/13/16 at 10:42; Status DC Pantoprazole Sodium (Protonix) 40 mg DAILY PO Last administered on 12/19/16 08: 46; Start 12/13/16 at 09:00 Multivitamins 1 tab 1 tab DAILY PO ; Start 12/13/16 at 09:00; Stop 12/13/16 at 09:00; Status DC Thiamine HCl/ Sodium Chloride (Thiamine Inj/NS Inj) 101 ml @ 101 mls/hr DAILY IV ; Start 12/13/16 at 09:00; Stop 12/13/16 at 09:00; Status DC Folic Acid (Folate) 1 mg DAILY PO ; Start 12/13/16 at 09:00; Stop 12/13/16 at 09 :00; Status DC Metoprolol Tartrate 5 mg 5 mg Q5M IV PUSH Last administered on 12/12/16 23:25 ; Start 12/12/16 at 22:40; Stop 12/12/16 at 22:51; Status DC Sodium Chloride 1,000 ml @ 999 mls/hr BOLUS ONCE IV Last administered on 12/12 23:25; Start 12/12/16 at 22:45; Stop 12/12/16 at 23:45; Status DC Sodium Chloride (NS 1000 ml Inj) 1,000 ml @ 999 mls/hr BOLUS ONCE IV Last administered on 12/13/16 00:53; Start 12/12/16 at 22:45; Stop 12/12/16 at 23:45 ; Status DC Chlordiazepoxide 50 mg 50 mg ONCE PO Last administered on 12/12/16 22:58; Start 12/12/16 at 22:45; Stop 12/13/16 at 01:00; Status DC Sodium Chloride (NS 1000 ml Inj) 1,000 ml @ 50 mls/hr Q20H IV Last administered on 12/15/16 01:19; Start 12/12/16 at 23:45; Stop 12/15/16 at 12:55 ; Status DC Thiamine HCl (Vitamin B1) 100 mg DAILY PO Last administered on 12/19/16 08:46; Start 12/13/16 at 09:00 Folic Acid (Folate) 1 mg DAILY PO Last administered on 12/19/16 08:46; Start at 09:00 Multivitamins (Theragran) 1 tab DAILY PO Last administered on 12/19/16 08:45; Start 12/13/16 at 09:00 Enoxaparin Sodium (Lovenox Inj) 100 mg Q24H SQ Last administered on 12/13/16 00:54; Start 12/13/16 at 01:00; Stop 12/13/16 at 10:39; Status DC Digoxin 0.25 mg 0.25 mg NOW ONCE IV PUSH Last administered on 12/13/16 00:53 ; Start 12/13/16 at 01:00; Stop 12/13/16 at 01:01; Status DC Amiodarone HCl 150 mg/Dextrose 100 ml @ 600 mls/hr ONCE ONCE IV Last administered on 12/13/16 02:28; Start 12/13/16 at 02:00; Stop 12/13/16 at 10:39 ; Status DC Amiodarone HCl/ Dextrose (Cordarone Inj/ D5W ([place]) Inj) 250 ml @ 0 mls/hr CONTINUOUS IV Last administered on 12/13/16 02:28; Start 12/13/16 at 02:00; Stop 12/13/16 at 10:39; Status DC Metoprolol Tartrate (Lopressor) 100 mg Q12H PO ; Start 12/13/16 at 08:00; Stop 12/13/16 at 08:00; Status DC Metoprolol Tartrate (Lopressor) 50 mg Q12HR PO Last administered on 12/13/16 08:25; Start 12/13/16 at 09:00; Stop 12/13/16 at 10:39; Status DC Metoprolol Tartrate (Lopressor) 100 mg Q12H PO Last administered on 12/15/16 21:46; Start 12/13/16 at 21:00; Stop 12/16/16 at 07:47; Status DC Metoprolol Tartrate (Lopressor) 50 mg ONCE ONCE PO Last administered on 11:09; Start 12/13/16 at 10:45; Stop 12/13/16 at 10:47; Status DC Metoprolol Tartrate 5 mg 5 mg Q2HR PRN IV PUSH RAPID HEART RATE Last administered on 12/17/16 21:49; Start 12/13/16 at 10:45 Piperacillin Sod/ Tazobactam Sod 50 ml @ 100 mls/hr Q8H IV Last administered on 12/16/16 06:12; Start 12/13/16 at 13:00; Stop 12/16/16 at 11:43; Status DC Potassium Chloride 100 ml @ 50 mls/hr Q2H IV Last administered on 12/14/16 10 :00; Start 12/14/16 at 08:00; Stop 12/14/16 at 11:59; Status DC Potassium Chloride 100 ml @ 50 mls/hr ONCE ONCE IV Last administered on 22:02; Start 12/14/16 at 21:15; Stop 12/14/16 at 23:14; Status DC Potassium Chloride 100 ml @ 50 mls/hr Q2H IV Last administered on 12/15/16 15 :10; Start 12/15/16 at 04:30; Stop 12/15/16 at 10:29; Status DC Magnesium Sulfate/ Dextrose (Magnesium Sulfate 1 Gm Premix) 100 ml @ 100 mls/ hr Q1H IV Last administered on 12/15/16 15:10; Start 12/15/16 at 08:30; Stop 12/15/16 at 10:29; Status DC Potassium Chloride (KCl) 30 meq ONCE ONCE PO Last administered on 12/15/16 10 :18; Start 12/15/16 at 08:30; Stop 12/15/16 at 08:48; Status DC Diltiazem HCl (Cardizem Inj) 25 mg STK-MED ONCE .ROUTE ; Start 12/15/16 at 12:01 ; Stop 12/15/16 at 12:56; Status DC Furosemide (Lasix Inj) 40 mg ONCE ONCE IV PUSH Last administered on 12/15/16 13:47; Start 12/15/16 at 13:00; Stop 12/15/16 at 13:01; Status DC Albuterol/ Ipratropium (Duoneb Neb) 1 ampule Q6HR NEB NEB Last administered on 12/19/16 08:31; Start 12/15/16 at 16:00 Metoprolol Tartrate (Lopressor) 150 mg Q12HR PO Last administered on 12/17/16 09:50; Start 12/16/16 at 09:00; Stop 12/17/16 at 11:44; Status DC Furosemide (Lasix) 40 mg BID@09,18 PO Last administered on 12/19/16 08:46; Start 12/16/16 at 09:00 Potassium Chloride (KCl) 20 meq Q12HR PO Last administered on 12/19/16 08:46; Start 12/16/16 at 09:00 Temazepam (Restoril) 7.5 mg HS PRN PO insomnia; Start 12/16/16 at 11:45 Potassium Chloride (KCl) 10 meq ONCE ONCE PO Last administered on 12/16/16 13 :27; Start 12/16/16 at 11:45; Stop 12/16/16 at 12:05; Status DC Metoprolol Tartrate (Lopressor) 200 mg Q12HR PO Last administered on 12/19/16 08:45; Start 12/17/16 at 21:00 Metoprolol Tartrate (Lopressor) 50 mg ONCE ONCE PO Last administered on 12:09; Start 12/17/16 at 11:45; Stop 12/17/16 at 11:48; Status DC Digoxin (Lanoxin) 0.125 mg DAILY PO Last administered on 12/19/16 08:46; Start 12/18/16 at 09:00 Digoxin (Lanoxin Inj) 0.5 mg ONCE ONCE IV PUSH Last administered on 12/17/16 12:09; Start 12/17/16 at 11:45; Stop 12/17/16 at 11:47; Status DC Hydralazine HCl (Apresoline Inj) 10 mg Q8H PRN IV SBP > 180, DBP > 100 Last administered on 12/19/16 00:15; Start 12/18/16 at 16:45 Diltiazem HCl (Cardizem Cd) 120 mg DAILY PO Last administered on 12/19/16 08:46 ; Start 12/19/16 at 09:00 A/P Assessment and Plan A/P - atrial fibrillation with rapid ventricular response- HR fairly controlled. continue to monitor on telemetry- metoprolol was increased to 200 mg bid and started on digoxin.cardizem was added- will monitor and adjust the regimen as needed. echo with EF 15%- cardiology following. -cardiomyopathy- continue BB , digoxin and diuretic- no ANJELICA-I due to renal insufficiency -renal insufficiency with unknown duration- renal function fairly stable- f/u as outpatient and this was d/w the patient -rhabdomyolysis- improving- -elevated LFT's/ coagulopathy/ thrombocytopenia; due to liver disease due to alcohol- will monitor- no evidence of bleeding- GI consult appreciated- plan for endoscopy possibly tomorrow. -alcohol abuse; continue vitamin supplement- counselled on drinking cessation. Discharge Planning case management for [facility]. d/w the case management. possible dc home within the next 24-48 hrs if stable. Monie Mann MD Dec 19, 2016 09:27
--- NOTE | 2016-12-19 15:09 | HHI.GIFU ---
Subjective Remarks Up on side of bed. No n/v. No discomfort. Tolerating diet (Mira Veloz) Objective Vitals I&O Vital Signs Date Time Temp Pulse Resp B/P Pulse Ox O2 Delivery O2 Flow Rate FiO2 12/19/16 12:00 96 12/19/16 12:00 97.9 83 16 117/86 95 12/19/16 11:00 93 12/19/16 10:00 100 12/19/16 09:00 92 12/19/16 08:30 95 21 12/19/16 08:00 97.8 106 16 132/104 96 12/19/16 08:00 110 12/19/16 07:42 Room Air 21 12/19/16 07:00 108 12/19/16 06:00 97 12/19/16 05:00 104 12/19/16 04:00 Room Air 12/19/16 04:00 98.0 86 20 134/88 93 12/19/16 04:00 99 12/19/16 03:00 109 12/19/16 02:00 117 12/19/16 01:00 115 12/19/16 01:00 138/74 12/19/16 00:10 98.1 98 18 142/106 97 128/104 12/19/16 00:10 Room Air 12/19/16 00:00 101 12/18/16 23:00 120 12/18/16 22:49 20 12/18/16 22:00 108 12/18/16 21:00 105 12/18/16 20:00 98.5 93 18 124/88 97 Automatic Cuff 12/18/16 20:00 Room Air 12/18/16 20:00 99 12/18/16 19:00 88 12/18/16 18:00 98 12/18/16 17:14 142/90 12/18/16 17:00 111 12/18/16 16:00 101 12/18/16 16:00 98.2 88 20 138/111 98 139/111 I/O 12/18/16 12/18/16 12/18/16 12/19/16 12/19/16 12/19/16 07:00 15:00 23:00 07:00 15:00 23:00 Intake Total 800 ml 600 ml 960 ml Output Total 1800 ml 800 ml Balance -1000 ml -200 ml 960 ml Intake Oral 800 ml 600 ml 960 ml Output Urine Total 1800 ml 800 ml # Voids 3 # Bowel Movements 0 1 0 Laboratory Laboratory Tests Test 12/19/16 07:47 Ammonia 21 Tumor Marker Alpha Fetoprotein 2.6 Imaging Last Impressions Chest X-Ray 12/15/16 0000 Signed Impressions: Service Date/Time: Thursday, December 15, 2016 03:14 - CONCLUSION: Worsening appearance of the chest. Nito Rodríguez MD Abdomen Ultrasound 12/13/16 0000 Signed Impressions: Service Date/Time: Tuesday, December 13, 2016 15:26 - CONCLUSION: There is not enough ascites for safe paracentesis. Reji Rivera MD FACR Liver Ultrasound 12/12/16 0000 Signed Impressions: Service Date/Time: November 20:18 - CONCLUSION: Ascites. Hepatic venocongestion. Keven Hamilton MD Abdomen/Pelvis CT 12/12/16 0000 Signed Impressions: Service Date/Time: November 18:22 - CONCLUSION: Cardiomegaly and small pleural effusions. Ascites in the abdomen. No acute focal findings. Keven Hamilton MD Physical Exam HEENT: Normocephalic; atraumatic; + jaundice. CHEST: CTA CARDIAC: Irregular ABDOMEN: Soft, nondistended, nontender; hepatosplenomegaly; bowel sounds are present in all four quadrants. EXTREMITIES:BLE edema. SKIN: Normal; no rash; +jaundice. COLOR GRINDER: No focal deficits; alert and oriented times three. (Mira Veloz [facility]) Assessment and Plan Plan ASSESSMENT: - Elevated LFTs. Pt also with coagulopathy, thrombocytopenia, and coagulopathy. Liver Ultrasound (12/12/16)-----> Ascites. Hepatic venocongestion. Abdomen/Pelvis CT (12/12/16)---> Cardiomegaly and small pleural effusions. Ascites in the abdomen. No acute focal findings. No known hx of liver dz/hepatitis/cirrhosis. Does have ongoing ETOH abuse, 6 beers per day and labs could be consistent with liver disease/cirrhosis. Hepatitis profile negative, PASCALE pending, AMA pending, ASMA pending, Iron saturation 43.6% , Ferritin 732, AFP 2.6, Alpha 1 Antitrypsin pending, Ceruloplasmin pending. Of note, does have some CHF also. Will order liver workup. Suspect liver disease r/t ETOH abuse. - Thrombocytopenia/Coagulopathy. Platelets 64, PT 24.3, INR 2.1, no active bleeding. - Decreased appetite, nausea, dry heaving. CT/US as above. Had colonoscopy with polypectomy 6 years ago at [place]. - Sleeping disturbances. Ammonia 21. - Atrial fibrillation, CHF, Cardiomyopathy. Cardiology following. - Hyperlipidemia, RI, OA per primary PLAN: - Plan for egd with possible band ligation - Obtain consents - NPO after MN - CBC, PT/INR in am, notify GI if INR 2.0 or above - Await PASCALE, ASMA, AMA - Await Ceruloplasmin, Alpha 1 Antitrypsin - Monitor LFTs - Complete ETOH Cessation - Supportive care - Further recommendations to follow based on results of above - Pt seen and examined by Dr. Buck and myself and this note is written on his behalf (Mira Veloz) Physician Comments Patient was seen and examined Agree with above Continue current supportive care Monitor labs Plan for an EGD tomorrow (Aram Buck MD) Mira Veloz Dec 19, 2016 15:09 Aram Buck MD Dec 19, 2016 17:51
[2016-12-20] VITALS (16 sets, daily range): BP systolic 118–142; BP diastolic 84–98; PULSE 77–101; RESP 12–20; TEMP 96.1–99.1; O2SAT 94–98
[2016-12-20] MEDS: LACTATED RINGER'S 1000 ML IV SCH (03:00)
[2016-12-20] MEDS ORDERED: SODIUM CHLORID 0.9% 500 ML IV SCH (03:00)
[2016-12-20] MEDS ORDERED: INSULIN HUMAN REGULAR 1,000 UNITS/10 ML VIAL SQ PRN (03:00)
[2016-12-20] MEDS: CHLORHEXIDINE GLUCONATE 2 % 1 PACK (2 CLOTHS) TOP SCH (04:00)
[2016-12-20 08:29] LABS: INTERNATIONAL NORMALIZED RATIO 1.3 RATIO; PROTHROMBIN TIME - PATIENT 14.9 SEC (9.8-11.6)
[2016-12-20] MEDS ORDERED: PROPOFOL 200 MG/20 ML AMP IV ONE (10:51)
[2016-12-20] MEDS: FUROSEMIDE 40 MG TAB PO SCH ×2 (11:47→17:39)
[2016-12-20] MEDS: FOLIC ACID 1 MG TAB PO SCH (11:47)
[2016-12-20] MEDS: PANTOPRAZOLE SOD 40 MG DELAYED RELEASE TAB PO SCH (11:47)
[2016-12-20] MEDS: METOPROLOL TARTRATE 100 MG TAB PO SCH ×2 (11:47→21:12)
[2016-12-20] MEDS: DILTIAZEM-CD 120 MG CAP ER PO SCH (11:47)
[2016-12-20] MEDS: THIAMINE HCL 100 MG TAB PO SCH (11:47)
[2016-12-20] MEDS: MULTIVITAMIN TAB PO SCH (11:47)
[2016-12-20] MEDS: DIGOXIN 0.125 MG TAB PO SCH (11:48)
[2016-12-20] MEDS: SODIUM CHLORIDE 0.9% FLUSH 5 ML FLUSH IV FLUSH SCH ×2 (11:48→21:12)
[2016-12-20] MEDS: DOCUSATE SODIUM 100 MG CAP PO SCH ×2 (11:48→21:12)
[2016-12-20] MEDS: POTASSIUM CHLORIDE 20 MEQ CONTROLLED RELEASE TAB PO SCH ×2 (11:48→21:12)
--- NOTE | 2016-12-20 12:21 | HHI.PR ---
Subjective Remarks resting comfortably with no distress. although says he's feeling slightly weak today. Objective Vitals Vital Signs Date Time Temp Pulse Resp B/P Pulse Ox O2 Delivery O2 Flow Rate FiO2 12/20/16 11:10 87 16 119/78 99 12/20/16 11:05 98 16 105/69 99 12/20/16 11:00 97.5 93 16 116/74 100 12/20/16 08:02 101 12/20/16 07:56 96.6 98 18 121/98 98 12/20/16 07:56 98 12/20/16 07:56 98 Room Air 12/20/16 06:00 90 12/20/16 05:00 97 12/20/16 04:00 94 12/20/16 03:00 98.0 82 16 127/96 95 12/20/16 03:00 82 12/20/16 02:00 99 12/20/16 01:00 92 12/20/16 00:00 93 12/19/16 23:30 97.8 89 16 140/104 96 12/19/16 23:30 96 Room Air 12/19/16 23:00 98 12/19/16 22:00 104 12/19/16 21:00 118 12/19/16 20:00 98.2 92 16 116/96 95 12/19/16 20:00 112 12/19/16 20:00 95 Room Air 12/19/16 19:13 21 12/19/16 19:00 94 12/19/16 18:00 94 12/19/16 17:00 90 12/19/16 16:00 98.1 95 18 133/100 94 12/19/16 16:00 98 12/19/16 15:00 92 12/19/16 14:00 102 12/19/16 13:00 98 I/O 12/19/16 12/19/16 12/19/16 12/20/16 12/20/16 12/20/16 07:00 15:00 23:00 07:00 15:00 23:00 Intake Total 960 ml 1980 ml 480 ml 500 ml Balance 960 ml 1980 ml 480 ml 500 ml Intake Oral 960 ml 780 ml 480 ml IV Total 1200 ml 500 ml # Voids 3 3 2 # Bowel Movements 0 1 0 Result Diagram: 12/17/16 0830 12/18/1635 Imaging Last Impressions Chest X-Ray 12/15/16 0000 Signed Impressions: Service Date/Time: Thursday, December 15, 2016 03:14 - CONCLUSION: Worsening appearance of the chest. Nito Rodríguez MD Abdomen Ultrasound 12/13/16 0000 Signed Impressions: Service Date/Time: Tuesday, December 13, 2016 15:26 - CONCLUSION: There is not enough ascites for safe paracentesis. Reji Rivera MD FACR Liver Ultrasound 12/12/16 0000 Signed Impressions: Service Date/Time: November 20:18 - CONCLUSION: Ascites. Hepatic venocongestion. Keven Hamilton MD Abdomen/Pelvis CT 12/12/16 0000 Signed Impressions: Service Date/Time: November 18:22 - CONCLUSION: Cardiomegaly and small pleural effusions. Ascites in the abdomen. No acute focal findings. Keven Hamilton MD Objective Remarks GENERAL: This is a well-nourished, well-developed patient, in no apparent distress. CARDIOVASCULAR: tachycardic with irregular rhythm without murmurs, gallops, or rubs. RESPIRATORY: Clear to auscultation. Breath sounds equal bilaterally. No wheezes , rales, or rhonchi. GASTROINTESTINAL: Abdomen soft, non-tender, nondistended. Normal, active bowel sounds MUSCULOSKELETAL: Extremities with bilateral pedal edema. NEURO: Alert & Oriented x4 to person, place, time, situation. Moves all ext x4 Procedures EGD Medications and IVs Current Medications Metoprolol Succinate (Toprol Xl) 50 mg ONCE ONCE PO Last administered on 15:59; Start 12/12/16 at 16:00; Stop 12/12/16 at 16:01; Status DC Diltiazem HCl 25 mg 25 mg ONCE ONCE IV Last administered on 12/12/16 16:34; Start 12/12/16 at 16:30; Stop 12/12/16 at 16:31; Status DC Sodium Chloride (NS 500 ml Inj) 500 ml @ 500 mls/hr BOLUS ONCE IV ; Start at 16:30; Stop 12/12/16 at 16:37; Status DC Potassium Chloride (KCl) 40 meq ONCE ONCE PO Last administered on 12/12/16 16 :41; Start 12/12/16 at 16:30; Stop 12/12/16 at 16:31; Status DC Furosemide (Lasix Inj) 40 mg ONCE ONCE IV PUSH Last administered on 12/12/16 16:59; Start 12/12/16 at 17:00; Stop 12/12/16 at 17:01; Status DC Metoprolol Tartrate (Lopressor Inj) 2.5 mg ONCE STAT IV PUSH Last administered on 12/12/16 17:50; Start 12/12/16 at 17:44; Stop 12/12/16 at 17:45 ; Status DC IV Flush (NS Flush) 2 ml UNSCH PRN IV FLUSH FLUSH AFTER USING IV ACCESS Last administered on 12/17/16 21:49; Start 12/12/16 at 18:15 IV Flush (NS Flush) 2 ml BID IV FLUSH Last administered on 12/20/16 11:48; Start 12/12/16 at 21:00 Acetaminophen (Tylenol) 650 mg Q6H PRN PO FEVER >101F; Start 12/12/16 at 18:15 Acetaminophen/ Hydrocodone Bitart ([place] 5-325 Mg) 1 tab Q4H PRN PO PAIN SCALE 1 TO 5 Last administered on 12/18/16 21:49; Start 12/12/16 at 18:15 Morphine Sulfate (Morphine Inj) 2 mg Q2H PRN IV PAIN SCALE 6 TO 10; Start 12/12 at 18:15 Ondansetron HCl (Zofran Inj) 4 mg Q6H PRN IV NAUSEA OR VOMITING Last administered on 12/18/16 21:48; Start 12/12/16 at 18:15 Docusate Sodium (Colace) 100 mg BID PO Last administered on 12/20/16 11:48; Start 12/12/16 at 21:00 Sennosides (Senokot) 17.2 mg Q12H PRN PO CONSTIPATION Last administered on 12/15 01:14; Start 12/12/16 at 18:15 Albuterol/ Ipratropium (Duoneb Neb) 1 ampule Q2HR NEB PRN INH WHEEZING Last administered on 12/19/16 17:17; Start 12/12/16 at 18:15 Miscellaneous Information 1 Q361D XX ; Start 12/12/16 at 18:15 Chlorhexidine Gluconate (Chlorhexidine 2% Cloth) Taper DAILY@04 TOP Last administered on 12/15/16 21:46; Start 12/13/16 at 04:00; Stop 12/09/17 at 03:59 Chlorhexidine Gluconate (Chlorhexidine 2% Cloth) 3 pack UNSCH PRN TOP HYGIENIC CARE; Start 12/12/16 at 18:15 Metoprolol Tartrate (Lopressor Inj) 2.5 mg Q6H IV PUSH Last administered on 04:31; Start 12/12/16 at 22:00; Stop 12/13/16 at 10:42; Status DC Pantoprazole Sodium (Protonix) 40 mg DAILY PO Last administered on 12/20/16 11: 47; Start 12/13/16 at 09:00 Multivitamins 1 tab 1 tab DAILY PO ; Start 12/13/16 at 09:00; Stop 12/13/16 at 09:00; Status DC Thiamine HCl/ Sodium Chloride (Thiamine Inj/NS Inj) 101 ml @ 101 mls/hr DAILY IV ; Start 12/13/16 at 09:00; Stop 12/13/16 at 09:00; Status DC Folic Acid (Folate) 1 mg DAILY PO ; Start 12/13/16 at 09:00; Stop 12/13/16 at 09 :00; Status DC Metoprolol Tartrate 5 mg 5 mg Q5M IV PUSH Last administered on 12/12/16 23:25 ; Start 12/12/16 at 22:40; Stop 12/12/16 at 22:51; Status DC Sodium Chloride 1,000 ml @ 999 mls/hr BOLUS ONCE IV Last administered on 12/12 23:25; Start 12/12/16 at 22:45; Stop 12/12/16 at 23:45; Status DC Sodium Chloride (NS 1000 ml Inj) 1,000 ml @ 999 mls/hr BOLUS ONCE IV Last administered on 12/13/16 00:53; Start 12/12/16 at 22:45; Stop 12/12/16 at 23:45 ; Status DC Chlordiazepoxide 50 mg 50 mg ONCE PO Last administered on 12/12/16 22:58; Start 12/12/16 at 22:45; Stop 12/13/16 at 01:00; Status DC Sodium Chloride (NS 1000 ml Inj) 1,000 ml @ 50 mls/hr Q20H IV Last administered on 12/15/16 01:19; Start 12/12/16 at 23:45; Stop 12/15/16 at 12:55 ; Status DC Thiamine HCl (Vitamin B1) 100 mg DAILY PO Last administered on 12/20/16 11:47; Start 12/13/16 at 09:00 Folic Acid (Folate) 1 mg DAILY PO Last administered on 12/20/16 11:47; Start at 09:00 Multivitamins (Theragran) 1 tab DAILY PO Last administered on 12/20/16 11:47; Start 12/13/16 at 09:00 Enoxaparin Sodium (Lovenox Inj) 100 mg Q24H SQ Last administered on 12/13/16 00:54; Start 12/13/16 at 01:00; Stop 12/13/16 at 10:39; Status DC Digoxin 0.25 mg 0.25 mg NOW ONCE IV PUSH Last administered on 12/13/16 00:53 ; Start 12/13/16 at 01:00; Stop 12/13/16 at 01:01; Status DC Amiodarone HCl 150 mg/Dextrose 100 ml @ 600 mls/hr ONCE ONCE IV Last administered on 12/13/16 02:28; Start 12/13/16 at 02:00; Stop 12/13/16 at 10:39 ; Status DC Amiodarone HCl/ Dextrose (Cordarone Inj/ D5W ([place]) Inj) 250 ml @ 0 mls/hr CONTINUOUS IV Last administered on 12/13/16 02:28; Start 12/13/16 at 02:00; Stop 12/13/16 at 10:39; Status DC Metoprolol Tartrate (Lopressor) 100 mg Q12H PO ; Start 12/13/16 at 08:00; Stop 12/13/16 at 08:00; Status DC Metoprolol Tartrate (Lopressor) 50 mg Q12HR PO Last administered on 12/13/16 08:25; Start 12/13/16 at 09:00; Stop 12/13/16 at 10:39; Status DC Metoprolol Tartrate (Lopressor) 100 mg Q12H PO Last administered on 12/15/16 21:46; Start 12/13/16 at 21:00; Stop 12/16/16 at 07:47; Status DC Metoprolol Tartrate (Lopressor) 50 mg ONCE ONCE PO Last administered on 11:09; Start 12/13/16 at 10:45; Stop 12/13/16 at 10:47; Status DC Metoprolol Tartrate 5 mg 5 mg Q2HR PRN IV PUSH RAPID HEART RATE Last administered on 12/17/16 21:49; Start 12/13/16 at 10:45 Piperacillin Sod/ Tazobactam Sod 50 ml @ 100 mls/hr Q8H IV Last administered on 12/16/16 06:12; Start 12/13/16 at 13:00; Stop 12/16/16 at 11:43; Status DC Potassium Chloride 100 ml @ 50 mls/hr Q2H IV Last administered on 12/14/16 10 :00; Start 12/14/16 at 08:00; Stop 12/14/16 at 11:59; Status DC Potassium Chloride 100 ml @ 50 mls/hr ONCE ONCE IV Last administered on 22:02; Start 12/14/16 at 21:15; Stop 12/14/16 at 23:14; Status DC Potassium Chloride 100 ml @ 50 mls/hr Q2H IV Last administered on 12/15/16 15 :10; Start 12/15/16 at 04:30; Stop 12/15/16 at 10:29; Status DC Magnesium Sulfate/ Dextrose (Magnesium Sulfate 1 Gm Premix) 100 ml @ 100 mls/ hr Q1H IV Last administered on 12/15/16 15:10; Start 12/15/16 at 08:30; Stop 12/15/16 at 10:29; Status DC Potassium Chloride (KCl) 30 meq ONCE ONCE PO Last administered on 12/15/16 10 :18; Start 12/15/16 at 08:30; Stop 12/15/16 at 08:48; Status DC Diltiazem HCl (Cardizem Inj) 25 mg STK-MED ONCE .ROUTE ; Start 12/15/16 at 12:01 ; Stop 12/15/16 at 12:56; Status DC Furosemide (Lasix Inj) 40 mg ONCE ONCE IV PUSH Last administered on 12/15/16 13:47; Start 12/15/16 at 13:00; Stop 12/15/16 at 13:01; Status DC Albuterol/ Ipratropium (Duoneb Neb) 1 ampule Q6HR NEB NEB Last administered on 12/19/16 08:31; Start 12/15/16 at 16:00; Stop 12/19/16 at 16:00; Status DC Metoprolol Tartrate (Lopressor) 150 mg Q12HR PO Last administered on 12/17/16 09:50; Start 12/16/16 at 09:00; Stop 12/17/16 at 11:44; Status DC Furosemide (Lasix) 40 mg BID@,18 PO Last administered on 12/20/16 11:47; Start 12/16/16 at 09:00 Potassium Chloride (KCl) 20 meq Q12HR PO Last administered on 12/20/16 11:48; Start 12/16/16 at 09:00 Temazepam (Restoril) 7.5 mg HS PRN PO insomnia Last administered on 12/19/16 23 :36; Start 12/16/16 at 11:45 Potassium Chloride (KCl) 10 meq ONCE ONCE PO Last administered on 12/16/16 13 :27; Start 12/16/16 at 11:45; Stop 12/16/16 at 12:05; Status DC Metoprolol Tartrate (Lopressor) 200 mg Q12HR PO Last administered on 12/20/16 11:47; Start 12/17/16 at 21:00 Metoprolol Tartrate (Lopressor) 50 mg ONCE ONCE PO Last administered on 12:09; Start 12/17/16 at 11:45; Stop 12/17/16 at 11:48; Status DC Digoxin (Lanoxin) 0.125 mg DAILY PO Last administered on 12/20/16 11:48; Start 12/18/16 at 09:00 Digoxin (Lanoxin Inj) 0.5 mg ONCE ONCE IV PUSH Last administered on 12/17/16 12:09; Start 12/17/16 at 11:45; Stop 12/17/16 at 11:47; Status DC Hydralazine HCl (Apresoline Inj) 10 mg Q8H PRN IV SBP > 180, DBP > 100 Last administered on 12/19/16 00:15; Start 12/18/16 at 16:45 Diltiazem HCl 120 mg 120 mg DAILY PO Last administered on 12/20/16 11:47; Start 12/19/16 at 09:00 Lactated Ringer's 1,000 ml @ 30 mls/hr Q24H IV ; Start 12/20/16 at 03:00 Sodium Chloride (NS 500 ml Inj) 500 ml @ 30 mls/hr [id number] IV ; Start 12/20/16 at 03:00; Stop 12/21/16 at 02:59 Insulin Human Regular (NovoLIN R INJ) See Protocol Table ... UNSCH X1 PRN SQ SEE PROTOCOL; Start 12/20/16 at 03:00; Stop 12/21/16 at 02:59 Propofol (Diprivan 200 Mg/20 ml Inj) 200 mg STK-MED ONCE IV ; Start 12/20/16 at 10:51; Stop 12/20/16 at 11:07; Status DC A/P Assessment and Plan A/P - atrial fibrillation with rapid ventricular response- HR fairly controlled. continue to monitor on telemetry- metoprolol was increased to 200 mg bid and started on digoxin.cardizem was added- will monitor and adjust the regimen as needed. echo with EF 15%- cardiology following. -cardiomyopathy- continue BB , digoxin and diuretic- no ANJELICA-I due to renal insufficiency -renal insufficiency with unknown duration- renal function fairly stable- f/u as outpatient and this was d/w the patient -rhabdomyolysis- improving- -elevated LFT's/ coagulopathy/ thrombocytopenia; due to liver disease due to alcohol- will monitor- no evidence of bleeding- GI consult appreciated- s/p EGD with gastritis and Mercado's esophagus. -alcohol abuse; continue vitamin supplement- counselled on drinking cessation. Discharge Planning case management for [facility]. d/w the case management. dc home in am if stable and cleared by cardiology. Monie Mann MD Dec 20, 2016 12:21
--- NOTE | 2016-12-20 12:29 | PD.CARD.PN ---
Subjective Subjective Remarks Pt without complaints Objective Medications Current Medications Medications (Trade) Dose Ordered Sig/Lizzie Route Start Time Stop Time Status Last Admin (NS Flush) 2 ml UNSCH PRN IV FLUSH 12/12/16 18:15 12/17/16 21:49 (NS Flush) 2 ml BID IV FLUSH 12/12/16 21:00 12/20/16 11:48 (Tylenol) 650 mg Q6H PRN PO 12/12/16 18:15 ([place] 5-325 Mg) 1 tab Q4H PRN PO 12/12/16 18:15 12/18/16 21:49 (Morphine Inj) 2 mg Q2H PRN IV 12/12/16 18:15 (Zofran Inj) 4 mg Q6H PRN IV 12/12/16 18:15 12/18/16 21:48 (Colace) 100 mg BID PO 12/12/16 21:00 12/20/16 11:48 (Senokot) 17.2 mg Q12H PRN PO 12/12/16 18:15 12/15/16 01:14 Miscellaneous Information 1 Q361D XX 12/12/16 18:15 (Chlorhexidine 2% Cloth) Taper DAILY@04 TOP 12/13/16 04:00 12/09/17 03:59 12/15/16 21:46 (Chlorhexidine 2% Cloth) 3 pack UNSCH PRN TOP 12/12/16 18:15 (Protonix) 40 mg DAILY PO 12/13/16 09:00 12/20/16 11:47 (Vitamin B1) 100 mg DAILY PO 12/13/16 09:00 12/20/16 11:47 (Folate) 1 mg DAILY PO 12/13/16 09:00 12/20/16 11:47 (Theragran) 1 tab DAILY PO 12/13/16 09:00 12/20/16 11:47 (Lopressor Inj) 5 mg Q2HR PRN IV PUSH 12/13/16 10:45 12/17/16 21:49 (Lasix) 40 mg BID@,18 PO 12/16/16 09:00 12/20/16 11:47 (KCl) 20 meq Q12HR PO 12/16/16 09:00 12/20/16 11:48 (Restoril) 7.5 mg HS PRN PO 12/16/16 11:45 12/19/16 23:36 (Lopressor) 200 mg Q12HR PO 12/17/16 21:00 12/20/16 11:47 (Lanoxin) 0.125 mg DAILY PO 12/18/16 09:00 12/20/16 11:48 (Apresoline Inj) 10 mg Q8H PRN IV 12/18/16 16:45 12/19/16 00:15 Diltiazem HCl 120 mg 120 mg DAILY PO 12/19/16 09:00 12/20/16 11:47 Lactated Ringer's 1,000 ml @ 30 mls/hr Q24H IV 12/20/16 03:00 (NS 500 ml Inj) 500 ml @ 30 mls/hr [id number] IV 12/20/16 03:00 12/21/16 02:59 Vital Signs / I&O Vital Signs Date Time Temp Pulse Resp B/P Pulse Ox O2 Delivery O2 Flow Rate FiO2 12/20/16 11:10 87 16 119/78 99 12/20/16 11:05 98 16 105/69 99 12/20/16 11:00 97.5 93 16 116/74 100 12/20/16 08:02 101 12/20/16 07:56 96.6 98 18 121/98 98 12/20/16 07:56 98 12/20/16 07:56 98 Room Air 12/20/16 06:00 90 12/20/16 05:00 97 12/20/16 04:00 94 12/20/16 03:00 98.0 82 16 127/96 95 12/20/16 03:00 82 12/20/16 02:00 99 12/20/16 01:00 92 12/20/16 00:00 93 12/19/16 23:30 97.8 89 16 140/104 96 12/19/16 23:30 96 Room Air 12/19/16 23:00 98 12/19/16 22:00 104 12/19/16 21:00 118 12/19/16 20:00 98.2 92 16 116/96 95 12/19/16 20:00 112 12/19/16 20:00 95 Room Air 12/19/16 19:13 21 12/19/16 19:00 94 12/19/16 18:00 94 12/19/16 17:00 90 12/19/16 16:00 98.1 95 18 133/100 94 12/19/16 16:00 98 12/19/16 15:00 92 12/19/16 14:00 102 12/19/16 13:00 98 I/O 12/19/16 12/19/16 12/19/16 12/20/16 12/20/16 12/20/16 07:00 15:00 23:00 07:00 15:00 23:00 Intake Total 960 ml 1980 ml 480 ml 500 ml Balance 960 ml 1980 ml 480 ml 500 ml Intake Oral 960 ml 780 ml 480 ml IV Total 1200 ml 500 ml # Voids 3 3 2 # Bowel Movements 0 1 0 Physical Exam GENERAL: Well developed, well nourished. No acute distress. HEENT: Jugular venous pressure is normal. CHEST: Lungs decreased and clear to auscultation bilaterally. Unlabored respiratory effort. CARDIAC:irregular rate and rhythm without S3, S4, or murmur. ABDOMEN: Soft, nontender, no hepatosplenomegaly. Bowel sounds present. EXTREMITIES: No clubbing, cyanosis, 1- 2+ edema. Laboratory Laboratory Tests Test 12/20/16 08:10 Prothrombin Time 14.9 SEC Prothromb Time International 1.3 RATIO Ratio Assessment and Plan Problem List: (1) Atrial fibrillation with rapid ventricular response Assessment and Plan: reasonable rate control (90-105 average) continue present meds (2) Cardiomyopathy Assessment and Plan: EF 15% by ECHO, likely secondary to ETOH and AF RVR on BB, no ANJELICA secondary to CKD -no change 2/3 ( not a transplant candidate secondary to noncompliance) (3) CHF exacerbation Assessment and Plan: good on PO meds -edema is multifactorial (4) Chronic systolic CHF (congestive heart failure) (5) PONCE (acute kidney injury) (6) Thrombocytopenia Assessment and Plan GI-- reasonable for EGD/colonoscopy from CV perspective Problem Qualifiers (1) Cardiomyopathy: Qualified Code: I42.6 - Alcoholic cardiomyopathy (2) CHF exacerbation: Qualified Code: I50.23 - Acute on chronic systolic congestive heart failure Renée Qureshi MD Dec 20, 2016 12:29
[2016-12-21] VITALS (14 sets, daily range): BP systolic 109–141; BP diastolic 85–88; PULSE 82–94; RESP 16; TEMP 98.1–99; O2SAT 93–95
[2016-12-21] MEDS ORDERED: diphenhydrAMINE HCL 25 MG CAP PO ONE (00:15)
[2016-12-21] MEDS: LACTATED RINGER'S 1000 ML IV SCH (03:00)
[2016-12-21] MEDS: CHLORHEXIDINE GLUCONATE 2 % 1 PACK (2 CLOTHS) TOP SCH (04:00)
[2016-12-21] MEDS: DILTIAZEM-CD 120 MG CAP ER PO SCH (09:06)
[2016-12-21] MEDS: PANTOPRAZOLE SOD 40 MG DELAYED RELEASE TAB PO SCH (09:06)
[2016-12-21] MEDS: METOPROLOL TARTRATE 100 MG TAB PO SCH (09:06)
[2016-12-21] MEDS: DOCUSATE SODIUM 100 MG CAP PO SCH (09:06)
--- NOTE | 2016-12-21 09:06 | HHI.PR ---
Subjective Remarks resting comfortably with no distress. denies chest pain or sob. HR in 80's at this time. d/w the RN and no acute issues over night. Objective Vitals Vital Signs Date Time Temp Pulse Resp B/P Pulse Ox O2 Delivery O2 Flow Rate FiO2 12/21/16 08:11 98.8 82 16 109/85 93 12/21/16 07:00 93 12/21/16 06:00 90 12/21/16 05:00 92 12/21/16 04:00 88 12/21/16 03:00 99.0 87 16 141/88 95 12/21/16 03:00 94 12/21/16 02:00 92 12/21/16 01:00 82 12/21/16 00:00 82 12/20/16 23:00 99.1 81 16 129/98 95 12/20/16 23:00 89 12/20/16 22:00 82 12/20/16 21:00 78 12/20/16 20:00 82 12/20/16 19:00 95 Room Air 12/20/16 19:00 96.1 78 12 120/84 95 12/20/16 19:00 77 12/20/16 16:00 98 Room Air 12/20/16 16:00 82 12/20/16 16:00 98.1 82 20 142/95 98 12/20/16 12:00 94 Room Air 12/20/16 12:00 93 12/20/16 12:00 97.4 82 18 118/92 94 12/20/16 11:10 87 16 119/78 99 12/20/16 11:05 98 16 105/69 99 12/20/16 11:00 97.5 93 16 116/74 100 I/O 12/20/16 12/20/16 12/20/16 12/21/16 12/21/16 12/21/16 07:00 15:00 23:00 07:00 15:00 23:00 Intake Total 480 ml 500 ml 480 ml Balance 480 ml 500 ml 480 ml Intake Oral 480 ml 480 ml IV Total 500 ml # Voids 2 2 # Bowel Movements 0 Result Diagram: 12/17/16 0830 12/18/16 0635 Imaging Last Impressions Chest X-Ray 12/15/16 0000 Signed Impressions: Service Date/Time: Thursday, December 15, 2016 03:14 - CONCLUSION: Worsening appearance of the chest. Nito Rodríguez MD Abdomen Ultrasound 12/13/16 0000 Signed Impressions: Service Date/Time: Tuesday, December 13, 2016 15:26 - CONCLUSION: There is not enough ascites for safe paracentesis. Reji Rivera MD FACR Liver Ultrasound 12/12/16 0000 Signed Impressions: Service Date/Time: November 20:18 - CONCLUSION: Ascites. Hepatic venocongestion. Keven Hamilton MD Abdomen/Pelvis CT 12/12/16 0000 Signed Impressions: Service Date/Time: November 18:22 - CONCLUSION: Cardiomegaly and small pleural effusions. Ascites in the abdomen. No acute focal findings. Keven Hamilton MD Objective Remarks GENERAL: This is a well-nourished, well-developed patient, in no apparent distress. CARDIOVASCULAR: irregular rhythm without murmurs, gallops, or rubs. RESPIRATORY: Clear to auscultation. Breath sounds equal bilaterally. No wheezes , rales, or rhonchi. GASTROINTESTINAL: Abdomen soft, non-tender, nondistended. Normal, active bowel sounds MUSCULOSKELETAL: Extremities with bilateral pedal edema. NEURO: Alert & Oriented x4 to person, place, time, situation. Moves all ext x4 Procedures EGD Medications and IVs Current Medications Metoprolol Succinate (Toprol Xl) 50 mg ONCE ONCE PO Last administered on 15:59; Start 12/12/16 at 16:00; Stop 12/12/16 at 16:01; Status DC Diltiazem HCl 25 mg 25 mg ONCE ONCE IV Last administered on 12/12/16 16:34; Start 12/12/16 at 16:30; Stop 12/12/16 at 16:31; Status DC Sodium Chloride (NS 500 ml Inj) 500 ml @ 500 mls/hr BOLUS ONCE IV ; Start at 16:30; Stop 12/12/16 at 16:37; Status DC Potassium Chloride (KCl) 40 meq ONCE ONCE PO Last administered on 12/12/16 16 :41; Start 12/12/16 at 16:30; Stop 12/12/16 at 16:31; Status DC Furosemide (Lasix Inj) 40 mg ONCE ONCE IV PUSH Last administered on 12/12/16 16:59; Start 12/12/16 at 17:00; Stop 12/12/16 at 17:01; Status DC Metoprolol Tartrate (Lopressor Inj) 2.5 mg ONCE STAT IV PUSH Last administered on 12/12/16 17:50; Start 12/12/16 at 17:44; Stop 12/12/16 at 17:45 ; Status DC IV Flush (NS Flush) 2 ml UNSCH PRN IV FLUSH FLUSH AFTER USING IV ACCESS Last administered on 12/17/16 21:49; Start 12/12/16 at 18:15 IV Flush (NS Flush) 2 ml BID IV FLUSH Last administered on 12/20/16 21:12; Start 12/12/16 at 21:00 Acetaminophen (Tylenol) 650 mg Q6H PRN PO FEVER >101F; Start 12/12/16 at 18:15 Acetaminophen/ Hydrocodone Bitart ([place] 5-325 Mg) 1 tab Q4H PRN PO PAIN SCALE 1 TO 5 Last administered on 12/18/16 21:49; Start 12/12/16 at 18:15 Morphine Sulfate (Morphine Inj) 2 mg Q2H PRN IV PAIN SCALE 6 TO 10; Start 12/12 at 18:15 Ondansetron HCl (Zofran Inj) 4 mg Q6H PRN IV NAUSEA OR VOMITING Last administered on 12/18/16 21:48; Start 12/12/16 at 18:15 Docusate Sodium (Colace) 100 mg BID PO Last administered on 12/20/16 21:12; Start 12/12/16 at 21:00 Sennosides (Senokot) 17.2 mg Q12H PRN PO CONSTIPATION Last administered on 12/15 01:14; Start 12/12/16 at 18:15 Albuterol/ Ipratropium (Duoneb Neb) 1 ampule Q2HR NEB PRN INH WHEEZING Last administered on 12/19/16 17:17; Start 12/12/16 at 18:15 Miscellaneous Information 1 Q361D XX ; Start 12/12/16 at 18:15 Chlorhexidine Gluconate (Chlorhexidine 2% Cloth) Taper DAILY@04 TOP Last administered on 12/15/16 21:46; Start 12/13/16 at 04:00; Stop 12/09/17 at 03:59 Chlorhexidine Gluconate (Chlorhexidine 2% Cloth) 3 pack UNSCH PRN TOP HYGIENIC CARE; Start 12/12/16 at 18:15 Metoprolol Tartrate (Lopressor Inj) 2.5 mg Q6H IV PUSH Last administered on 04:31; Start 12/12/16 at 22:00; Stop 12/13/16 at 10:42; Status DC Pantoprazole Sodium (Protonix) 40 mg DAILY PO Last administered on 12/20/16 11: 47; Start 12/13/16 at 09:00 Multivitamins 1 tab 1 tab DAILY PO ; Start 12/13/16 at 09:00; Stop 12/13/16 at 09:00; Status DC Thiamine HCl/ Sodium Chloride (Thiamine Inj/NS Inj) 101 ml @ 101 mls/hr DAILY IV ; Start 12/13/16 at 09:00; Stop 12/13/16 at 09:00; Status DC Folic Acid (Folate) 1 mg DAILY PO ; Start 12/13/16 at 09:00; Stop 12/13/16 at 09 :00; Status DC Metoprolol Tartrate 5 mg 5 mg Q5M IV PUSH Last administered on 12/12/16 23:25 ; Start 12/12/16 at 22:40; Stop 12/12/16 at 22:51; Status DC Sodium Chloride 1,000 ml @ 999 mls/hr BOLUS ONCE IV Last administered on 12/12 23:25; Start 12/12/16 at 22:45; Stop 12/12/16 at 23:45; Status DC Sodium Chloride (NS 1000 ml Inj) 1,000 ml @ 999 mls/hr BOLUS ONCE IV Last administered on 12/13/16 00:53; Start 12/12/16 at 22:45; Stop 12/12/16 at 23:45 ; Status DC Chlordiazepoxide 50 mg 50 mg ONCE PO Last administered on 12/12/16 22:58; Start 12/12/16 at 22:45; Stop 12/13/16 at 01:00; Status DC Sodium Chloride (NS 1000 ml Inj) 1,000 ml @ 50 mls/hr Q20H IV Last administered on 12/15/16 01:19; Start 12/12/16 at 23:45; Stop 12/15/16 at 12:55 ; Status DC Thiamine HCl (Vitamin B1) 100 mg DAILY PO Last administered on 12/20/16 11:47; Start 12/13/16 at 09:00 Folic Acid (Folate) 1 mg DAILY PO Last administered on 12/20/16 11:47; Start at 09:00 Multivitamins (Theragran) 1 tab DAILY PO Last administered on 12/20/16 11:47; Start 12/13/16 at 09:00 Enoxaparin Sodium (Lovenox Inj) 100 mg Q24H SQ Last administered on 12/13/16 00:54; Start 12/13/16 at 01:00; Stop 12/13/16 at 10:39; Status DC Digoxin 0.25 mg 0.25 mg NOW ONCE IV PUSH Last administered on 12/13/16 00:53 ; Start 12/13/16 at 01:00; Stop 12/13/16 at 01:01; Status DC Amiodarone HCl 150 mg/Dextrose 100 ml @ 600 mls/hr ONCE ONCE IV Last administered on 12/13/16 02:28; Start 12/13/16 at 02:00; Stop 12/13/16 at 10:39 ; Status DC Amiodarone HCl/ Dextrose (Cordarone Inj/ D5W ([place]) Inj) 250 ml @ 0 mls/hr CONTINUOUS IV Last administered on 12/13/16 02:28; Start 12/13/16 at 02:00; Stop 12/13/16 at 10:39; Status DC Metoprolol Tartrate (Lopressor) 100 mg Q12H PO ; Start 12/13/16 at 08:00; Stop 12/13/16 at 08:00; Status DC Metoprolol Tartrate (Lopressor) 50 mg Q12HR PO Last administered on 12/13/16 08:25; Start 12/13/16 at 09:00; Stop 12/13/16 at 10:39; Status DC Metoprolol Tartrate (Lopressor) 100 mg Q12H PO Last administered on 12/15/16 21:46; Start 12/13/16 at 21:00; Stop 12/16/16 at 07:47; Status DC Metoprolol Tartrate (Lopressor) 50 mg ONCE ONCE PO Last administered on 11:09; Start 12/13/16 at 10:45; Stop 12/13/16 at 10:47; Status DC Metoprolol Tartrate 5 mg 5 mg Q2HR PRN IV PUSH RAPID HEART RATE Last administered on 12/17/16 21:49; Start 12/13/16 at 10:45 Piperacillin Sod/ Tazobactam Sod 50 ml @ 100 mls/hr Q8H IV Last administered on 12/16/16 06:12; Start 12/13/16 at 13:00; Stop 12/16/16 at 11:43; Status DC Potassium Chloride 100 ml @ 50 mls/hr Q2H IV Last administered on 12/14/16 10 :00; Start 12/14/16 at 08:00; Stop 12/14/16 at 11:59; Status DC Potassium Chloride 100 ml @ 50 mls/hr ONCE ONCE IV Last administered on 22:02; Start 12/14/16 at 21:15; Stop 12/14/16 at 23:14; Status DC Potassium Chloride 100 ml @ 50 mls/hr Q2H IV Last administered on 12/15/16 15 :10; Start 12/15/16 at 04:30; Stop 12/15/16 at 10:29; Status DC Magnesium Sulfate/ Dextrose (Magnesium Sulfate 1 Gm Premix) 100 ml @ 100 mls/ hr Q1H IV Last administered on 12/15/16 15:10; Start 12/15/16 at 08:30; Stop 12/15/16 at 10:29; Status DC Potassium Chloride (KCl) 30 meq ONCE ONCE PO Last administered on 12/15/16 10 :18; Start 12/15/16 at 08:30; Stop 12/15/16 at 08:48; Status DC Diltiazem HCl (Cardizem Inj) 25 mg STK-MED ONCE .ROUTE ; Start 12/15/16 at 12:01 ; Stop 12/15/16 at 12:56; Status DC Furosemide (Lasix Inj) 40 mg ONCE ONCE IV PUSH Last administered on 12/15/16 13:47; Start 12/15/16 at 13:00; Stop 12/15/16 at 13:01; Status DC Albuterol/ Ipratropium (Duoneb Neb) 1 ampule Q6HR NEB NEB Last administered on 12/19/16 08:31; Start 12/15/16 at 16:00; Stop 12/19/16 at 16:00; Status DC Metoprolol Tartrate (Lopressor) 150 mg Q12HR PO Last administered on 12/17/16 09:50; Start 12/16/16 at 09:00; Stop 12/17/16 at 11:44; Status DC Furosemide (Lasix) 40 mg BID@,18 PO Last administered on 12/20/16 17:39; Start 12/16/16 at 09:00 Potassium Chloride (KCl) 20 meq Q12HR PO Last administered on 12/20/16 21:12; Start 12/16/16 at 09:00 Temazepam (Restoril) 7.5 mg HS PRN PO insomnia Last administered on 12/19/16 23 :36; Start 12/16/16 at 11:45 Potassium Chloride (KCl) 10 meq ONCE ONCE PO Last administered on 12/16/16 13 :27; Start 12/16/16 at 11:45; Stop 12/16/16 at 12:05; Status DC Metoprolol Tartrate (Lopressor) 200 mg Q12HR PO Last administered on 12/20/16 21:12; Start 12/17/16 at 21:00 Metoprolol Tartrate (Lopressor) 50 mg ONCE ONCE PO Last administered on 12:09; Start 12/17/16 at 11:45; Stop 12/17/16 at 11:48; Status DC Digoxin (Lanoxin) 0.125 mg DAILY PO Last administered on 12/20/16 11:48; Start 12/18/16 at 09:00 Digoxin (Lanoxin Inj) 0.5 mg ONCE ONCE IV PUSH Last administered on 12/17/16 12:09; Start 12/17/16 at 11:45; Stop 12/17/16 at 11:47; Status DC Hydralazine HCl (Apresoline Inj) 10 mg Q8H PRN IV SBP > 180, DBP > 100 Last administered on 12/19/16 00:15; Start 12/18/16 at 16:45 Diltiazem HCl 120 mg 120 mg DAILY PO Last administered on 12/20/16 11:47; Start 12/19/16 at 09:00 Lactated Ringer's 1,000 ml @ 30 mls/hr Q24H IV ; Start 12/20/16 at 03:00 Sodium Chloride (NS 500 ml Inj) 500 ml @ 30 mls/hr [id number] IV ; Start 12/20/16 at 03:00; Stop 12/21/16 at 02:59; Status DC Insulin Human Regular (NovoLIN R INJ) See Protocol Table ... UNSCH X1 PRN SQ SEE PROTOCOL; Start 12/20/16 at 03:00; Stop 12/21/16 at 02:59; Status DC Propofol (Diprivan 200 Mg/20 ml Inj) 200 mg STK-MED ONCE IV ; Start 12/20/16 at 10:51; Stop 12/20/16 at 11:07; Status DC Diphenhydramine HCl (Benadryl) 25 mg ONCE ONCE PO Last administered on 00:20; Start 12/21/16 at 00:15; Stop 12/21/16 at 00:16; Status DC A/P Assessment and Plan A/P - atrial fibrillation with rapid ventricular response- HR fairly controlled. metoprolol was increased to 200 mg bid and started on digoxin.cardizem was added- no anticoagulation due to thrombocytopenia. f/u as outpatient with cardiology. echo with EF 15%- -cardiomyopathy- continue BB , digoxin and diuretic- no ANJELICA-I due to renal insufficiency -renal insufficiency with unknown duration- renal function fairly stable- f/u as outpatient and this was d/w the patient -rhabdomyolysis- improving- -elevated LFT's/ coagulopathy/ thrombocytopenia; due to liver disease due to alcohol- - no evidence of bleeding- GI consult appreciated- s/p EGD with gastritis and Mercado's esophagus. biopsy pending- f/u with GI as outpatient. continue PPI -alcohol abuse; continue vitamin supplement- counselled on drinking cessation. Discharge Planning dc home with [facility]. case management to assist with dc planning. see med list. d/w the patient and RN. previously d/w . f/u; pcp, cardiology and GI. time spent 35 min. Monie Mann MD Dec 21, 2016 09:06
[2016-12-21] MEDS: THIAMINE HCL 100 MG TAB PO SCH (09:07)
[2016-12-21] MEDS: POTASSIUM CHLORIDE 20 MEQ CONTROLLED RELEASE TAB PO SCH (09:07)
[2016-12-21] MEDS: FOLIC ACID 1 MG TAB PO SCH (09:07)
[2016-12-21] MEDS: DIGOXIN 0.125 MG TAB PO SCH (09:07)
[2016-12-21] MEDS: FUROSEMIDE 40 MG TAB PO SCH (09:07)
[2016-12-21] MEDS: MULTIVITAMIN TAB PO SCH (09:07)
[2016-12-21] MEDS: SODIUM CHLORIDE 0.9% FLUSH 5 ML FLUSH IV FLUSH SCH (09:08)
[2016-12-21] MEDS ORDERED: DIGO0.12 PO (09:13)
[2016-12-21] MEDS ORDERED: VITA100T2 PO (09:13)
[2016-12-21] MEDS ORDERED: CARD120C4 PO (09:13)
[2016-12-21] MEDS ORDERED: FURO1TAB60 PO (09:13)
[2016-12-21] MEDS ORDERED: POTA20TA5 PO (09:13)
[2016-12-21] MEDS ORDERED: METO-338 PO (09:13)
--- NOTE | 2016-12-21 09:14 | HHI.DS ---
Discharge Summary Admission Date Dec 12, 2016 at 18:05 Discharge Date: Dec 21, 2016 Admitting Diagnosis cardiorenal failure (1) Cardiomyopathy ICD Code: I42.9 Diagnosis: Principal (2) Atrial fibrillation with rapid ventricular response ICD Code: I48.91 Diagnosis: Principal Procedures EGD Brief History - From Admission 71 year old male with former alcohol abuse, a. fib noncompliant with metoprolol 100mg PO BID presents with generalized weakness and abdominal bloating. He was seen here 12/10/16 and found to be in rapid afib, rhabdomyolysis and PONCE and left AMA. Pt states that he feels the same so he came back. CBC/BMP: 12/17/16 0830 12/18/16 0635 Significant Findings Laboratory Tests Test 12/19/16 12/20/16 07:47 08:10 [id number] 205 mg/dL (100 - 190) Prothrombin Time 14.9 SEC (9.8-11.6) Imaging Last Impressions Chest X-Ray 12/15/16 0000 Signed Impressions: Service Date/Time: Thursday, December 15, 2016 03:14 - CONCLUSION: Worsening appearance of the chest. Nito Rodríguez MD Abdomen Ultrasound 12/13/16 0000 Signed Impressions: Service Date/Time: Tuesday, December 13, 2016 15:26 - CONCLUSION: There is not enough ascites for safe paracentesis. Reji Rivera MD FACR Liver Ultrasound 12/12/16 0000 Signed Impressions: Service Date/Time: November 20:18 - CONCLUSION: Ascites. Hepatic venocongestion. Keven Haimlton MD Abdomen/Pelvis CT 12/12/16 0000 Signed Impressions: Service Date/Time: November 18:22 - CONCLUSION: Cardiomegaly and small pleural effusions. Ascites in the abdomen. No acute focal findings. Keven Hamilton MD PE at Discharge GENERAL: This is a well-nourished, well-developed patient, in no apparent distress. CARDIOVASCULAR: irregular rhythm without murmurs, gallops, or rubs. RESPIRATORY: Clear to auscultation. Breath sounds equal bilaterally. No wheezes , rales, or rhonchi. GASTROINTESTINAL: Abdomen soft, non-tender, nondistended. Normal, active bowel sounds MUSCULOSKELETAL: Extremities with bilateral pedal edema. NEURO: Alert & Oriented x4 to person, place, time, situation. Moves all ext x4 Hospital Course - atrial fibrillation with rapid ventricular response- HR fairly controlled. metoprolol was increased to 200 mg bid and started on digoxin.cardizem was added- no anticoagulation due to thrombocytopenia. f/u as outpatient with cardiology. echo with EF 15%- -cardiomyopathy- continue BB , digoxin and diuretic- no ANJELICA-I due to renal insufficiency -renal insufficiency with unknown duration- renal function fairly stable- f/u as outpatient and this was d/w the patient -rhabdomyolysis- improving- -elevated LFT's/ coagulopathy/ thrombocytopenia; due to liver disease due to alcohol- - no evidence of bleeding- GI consult appreciated- s/p EGD with gastritis and Mercado's esophagus. biopsy pending- f/u with GI as outpatient. continue PPI -alcohol abuse; continue vitamin supplement- counselled on drinking cessation. Pt Condition on Discharge: Fair Discharge Disposition: Disch w/ Home Health Serv Discharge Time: > 30 minutes Discharge Instructions DIET: Follow Instructions for: Heart Healthy Diet, Low Fat Diet, Low Sodium Diet Activities you can perform: Regular-No Restrictions Follow up Referrals: Cardiology Gastroenterology PCP Follow-up New Medications: Digoxin (Digoxin) 0.125 Mg Tab 0.125 MG PO DAILY a-fib Days 30 Ref 0 TAB Diltiazem CD 24 HR (Cardizem CD 24 HR) 120 Mg Caper 120 MG PO DAILY a-fib Days 30 Ref 0 CAP Furosemide (Lasix) 40 Mg Tab 40 MG PO BID@09,18 diuretic Days 30 Ref 0 TAB Metoprolol Tartrate (Lopressor) 100 Mg Tab 200 MG PO Q12HR a-fib Days 30 Ref 0 TAB Pantoprazole (Pantoprazole) 40 Mg Tab 40 MG PO DAILY gastritis Days 30 Ref 0 TAB Potassium Chloride Microencaps (Potassium Chloride Microencaps) 20 Meq Tab 20 MEQ PO Q12HR electrolyte supplement Days 30 Ref 0 TAB Thiamine (Vitamin B-1) 100 Mg Tab 100 MG PO DAILY vitamin supplement Days 30 Ref 0 TAB Continued Medications: Calcium Carbonate-Cholecalciferol (Calcium 500 +D) 500-400 Mg-Unit Tab 1 TAB PO DAILY Calcium Supplement Ref 0 TAB Escitalopram (Lexapro) 5 Mg Tab 5 MG PO DAILY #30 Ref 0 TAB Multiple Vitamins W/ Minerals (Theragran-M) 1 Tab 1 TAB PO DAILY Nutritional Supplement Ref 0 TAB Temazepam (Temazepam) 15 Mg Cap 15 MG PO HS PRN INSOMNIA #30 Ref 0 CAP ([Vitamin B1]) Discontinued Medications: Aspirin (Aspirin) 325 Mg Tab 325 MG PO DAILY #30 Ref 0 TAB Atorvastatin (Atorvastatin) 10 Mg Tab 10 MG PO HS Cholesterol Management #30 Ref 0 TAB Lisinopril (Prinivil) 10 Mg Tab 10 MG PO DAILY Blood Pressure Management #30 Ref 0 TAB Metoprolol Tartrate (Metoprolol Tartrate) 100 Mg Tab 100 MG PO BID #60 Ref 0 TAB Omeprazole (Omeprazole) 20 Mg Tab 20 MG PO DAILY #30 Ref 0 TAB Monie Mann MD Dec 21, 2016 09:14
--- NOTE | 2016-12-21 09:14 | HHI.DCPOC ---
Discharge Care Plan Diagnosis: (1) Cardiomyopathy (2) Atrial fibrillation with rapid ventricular response Additional Problems rapid heart rate. Goals to Promote Your Health * To prevent worsening of your condition and complications * To maintain your health at the optimal level Directions to Meet Your Goals Take your medications as prescribed Follow your dietary instruction Follow activity as directed Keep your appointments as scheduled Take your immunizations and boosters as scheduled If your symptoms worsen call your PCP, if no PCP go to Urgent Care Center or Emergency Room Smoking is Dangerous to Your Health. Avoid second hand smoke Call the 24-hour hour crisis hotline for domestic abuse at Monie Mann MD Dec 21, 2016 09:13
[2016-12-21] MEDS ORDERED: PANT40TA3 PO (09:19)
--- NOTE | 2016-12-21 12:02 | PD.CARD.PN ---
Subjective Subjective Remarks Pt without complaints Objective Medications Current Medications Medications (Trade) Dose Ordered Sig/Lizzie Route Start Time Stop Time Status Last Admin (NS Flush) 2 ml UNSCH PRN IV FLUSH 12/12/16 18:15 12/17/16 21:49 (NS Flush) 2 ml BID IV FLUSH 12/12/16 21:00 12/21/16 09:08 (Tylenol) 650 mg Q6H PRN PO 12/12/16 18:15 ([place] 5-325 Mg) 1 tab Q4H PRN PO 12/12/16 18:15 12/18/16 21:49 (Morphine Inj) 2 mg Q2H PRN IV 12/12/16 18:15 (Zofran Inj) 4 mg Q6H PRN IV 12/12/16 18:15 12/18/16 21:48 (Colace) 100 mg BID PO 12/12/16 21:00 12/21/16 09:06 (Senokot) 17.2 mg Q12H PRN PO 12/12/16 18:15 12/15/16 01:14 Miscellaneous Information 1 Q361D XX 12/12/16 18:15 (Chlorhexidine 2% Cloth) Taper DAILY@04 TOP 12/13/16 04:00 12/09/17 03:59 12/15/16 21:46 (Chlorhexidine 2% Cloth) 3 pack UNSCH PRN TOP 12/12/16 18:15 (Protonix) 40 mg DAILY PO 12/13/16 09:00 12/21/16 09:06 (Vitamin B1) 100 mg DAILY PO 12/13/16 09:00 12/21/16 09:07 (Folate) 1 mg DAILY PO 12/13/16 09:00 12/21/16 09:07 (Theragran) 1 tab DAILY PO 12/13/16 09:00 12/21/16 09:07 (Lopressor Inj) 5 mg Q2HR PRN IV PUSH 12/13/16 10:45 12/17/16 21:49 (Lasix) 40 mg BID@09,18 PO 12/16/16 09:00 12/21/16 09:07 (KCl) 20 meq Q12HR PO 12/16/16 09:00 12/21/16 09:07 (Restoril) 7.5 mg HS PRN PO 12/16/16 11:45 12/19/16 23:36 (Lopressor) 200 mg Q12HR PO 12/17/16 21:00 12/21/16 09:06 (Lanoxin) 0.125 mg DAILY PO 12/18/16 09:00 12/21/16 09:07 (Apresoline Inj) 10 mg Q8H PRN IV 12/18/16 16:45 12/19/16 00:15 Diltiazem HCl 120 mg 120 mg DAILY PO 12/19/16 09:00 12/21/16 09:06 (Lr 1000 ml Inj) 1,000 ml @ 30 mls/hr Q24H IV 12/20/16 03:00 Vital Signs / I&O Vital Signs Date Time Temp Pulse Resp B/P Pulse Ox O2 Delivery O2 Flow Rate FiO2 12/21/16 11:44 98.1 88 16 125/87 95 12/21/16 11:00 88 12/21/16 10:00 84 12/21/16 09:00 86 12/21/16 08:11 98.8 82 16 109/85 93 12/21/16 08:00 86 12/21/16 08:00 93 Room Air 12/21/16 07:00 93 12/21/16 06:00 90 12/21/16 05:00 92 12/21/16 04:00 88 12/21/16 03:00 99.0 87 16 141/88 95 12/21/16 03:00 94 12/21/16 02:00 92 12/21/16 01:00 82 12/21/16 00:00 82 12/20/16 23:00 99.1 81 16 129/98 95 12/20/16 23:00 89 12/20/16 22:00 82 12/20/16 21:00 78 12/20/16 20:00 82 12/20/16 19:00 95 Room Air 12/20/16 19:00 96.1 78 12 120/84 95 12/20/16 19:00 77 12/20/16 16:00 98 Room Air 12/20/16 16:00 82 12/20/16 16:00 98.1 82 20 142/95 98 I/O 12/20/16 12/20/16 12/20/16 12/21/1617 2/4/17 07:00 15:00 23:00 07:00 15:00 23:00 Intake Total 480 ml 500 ml 480 ml Balance 480 ml 500 ml 480 ml Intake Oral 480 ml 480 ml IV Total 500 ml # Voids 2 2 # Bowel Movements 0 Physical Exam GENERAL: Well developed, well nourished. No acute distress. HEENT: Jugular venous pressure is normal. CHEST: Lungs decreased and clear to auscultation bilaterally. Unlabored respiratory effort. CARDIAC:irregular rate and rhythm without S3, S4, or murmur. ABDOMEN: Soft, nontender, no hepatosplenomegaly. Bowel sounds present. EXTREMITIES: No clubbing, cyanosis, 1- 2+ edema. Assessment and Plan Problem List: (1) Atrial fibrillation with rapid ventricular response Assessment and Plan: reasonable rate control (80-90 average) continue present meds no anticoagulation with thrombocytopenia (2) Cardiomyopathy Assessment and Plan: EF 15% by ECHO, likely secondary to ETOH and AF RVR on BB, no ANJELICA secondary to CKD -no change 2/3 ( not a transplant candidate secondary to noncompliance) -eval for ICD as OP once compliance demonstrated (3) CHF exacerbation Assessment and Plan: good on PO meds -fluid and sodium restrictions discussed (4) Chronic systolic CHF (congestive heart failure) (5) PONCE (acute kidney injury) (6) Thrombocytopenia Assessment and Plan: 64K Assessment and Plan GI-- reasonable for EGD/colonoscopy from CV perspective Problem Qualifiers (1) Cardiomyopathy: Qualified Code: I42.6 - Alcoholic cardiomyopathy (2) CHF exacerbation: Qualified Code: I50.23 - Acute on chronic systolic congestive heart failure Renée Qureshi MD Dec 21, 2016 12:02
[2016-12-25 13:52] LABS: MITOCHONDRIAL ABS 23.9 U (())
== END 2016-12-21 12:28 | disposition home health service (06) | DRG 291 ==
LOC: PHED 15:14 → PHEDA 18:05 → HIME 21:45 → HCIN 12-17 21:18
PROVIDERS: ADMIT Internal Medicine; ATTEND Internal Medicine
PROC: 0DB38ZX Excision of Lower Esophagus, Via Natural or Artificial Opening Endoscopic, Diagnostic (ICD-10-PCS; principal; 2016-12-20 10:45)
DX: I13.0 Hypertensive heart and chronic kidney disease with heart failure and stage 1 through stage 4 chronic kidney disease, or unspecified chronic kidney disease (principal); I50.43 Acute on chronic combined systolic (congestive) and diastolic (congestive) heart failure; N17.9 Acute kidney failure, unspecified; E87.2 Acidosis; D68.9 Coagulation defect, unspecified; R18.8 Other ascites; M62.82 Rhabdomyolysis; E86.0 Dehydration; I42.6 Alcoholic cardiomyopathy; I48.2 Chronic atrial fibrillation; D69.6 Thrombocytopenia, unspecified; K72.90 Hepatic failure, unspecified without coma; E78.5 Hyperlipidemia, unspecified; F32.9 Major depressive disorder, single episode, unspecified; G47.00 Insomnia, unspecified; K21.9 Gastro-esophageal reflux disease without esophagitis; N18.9 Chronic kidney disease, unspecified; K70.9 Alcoholic liver disease, unspecified; K22.70 Barrett's esophagus without dysplasia; K29.70 Gastritis, unspecified, without bleeding; F10.10 Alcohol abuse, uncomplicated; Z91.14 Patient's other noncompliance with medication regimen
CPT/HCPCS: 71010; 74176; 76705; 80053; 80061; 80074; 80076; 81001; 82103; 82105; 82140; 82390; 82550; 82552; 82570; 82728; 83520; 83540; 83550; 83605; 83690; 83735; 83880; 84100; 84132; 84300; 84443; 84484; 85025; 85027; 85610; 85730; 86038; 86256; 87205; 87641; 88305; 93005; 93306; 94150; 94640; 94664; 96374; 96375; J0282; J0360; J1160; J1650; J1940; J2405; J2543; J3475; J3480; J7030; J7060

== ENCOUNTER 2017-01-01 14:38 | Emergency (ER) | payer OTHER ==
[~2017-01-01] VITALS: Ht 190.5 cm; Wt 100.0 kg
[~2017-01-01 14:38] MED LIST changes: -ASPI325T PO; -ATOR10TA15 PO; +CARD120C4 PO; +DIGO0.12 PO; +FURO1TAB60 PO; +METO-338 PO; -METO100T PO; +PANT40TA3 PO; +POTA20TA5 PO; -PRIN10TA PO; +TEMA15CA PO; -THIA100T PO; +VITA100T2 PO; +VITAMIN B1
[2017-01-01 14:41] VITALS: BP 102/74; PULSE 67; RESP 14; TEMP 97.4; O2SAT 91
--- NOTE | 2017-01-02 08:50 | EKG ---
Date Performed: 01/01/2017 Time Performed: 15:08:24 PTAGE: 71 years EKG: ATRIAL FIBRILLATION INTRAVENTRICULAR CONDUCTION DELAY ABNORMAL ECG PREVIOUS TRACING : 12/12/2016 15.36 DOCTOR: Matthew Navarro Interpretating Date/Time 01/02/2017 08:45:02
== END 2017-01-01 18:00 | disposition left against medical advice (07) ==
LOC: NED 14:38
DX: R07.9 Chest pain, unspecified (principal); R42 Dizziness and giddiness; R94.31 Abnormal electrocardiogram [ECG] [EKG]; Z53.21 Procedure and treatment not carried out due to patient leaving prior to being seen by health care provider
CPT/HCPCS: 93005; 99281